=== PATIENT | female | born 1960 | race Caucasian/White ===

== ENCOUNTER 2017-11-07 07:27 | Emergency (ER) | payer OTHER, SELFPAY ==
[2017-11-07 07:41] VITALS: BP 150/94; PULSE 86; RESP 18; TEMP 36.7; O2SAT 95
--- NOTE | 2017-11-07 08:41 | ED.HA ---
HPI - Headache General Chief Complaint: Headache Stated Complaint: PT STATES PERSISTANT SINUS INFECTION Time Seen by Provider: 11/07/17 07:33 History of Present Illness HPI Narrative: HPI 56-year-old female with history of of a deviated septum repair, and other unknown sinus surgery (both >= 10 years ago) presents for evaluation of 3 months of recurrent sinus congestion. Patient reports that she has had intermittent congestion for 3 months, is taking daily Afrin with transient relief followed by recurrent congestion. Patient reports that her symptoms are exacerbated over the last 7 days and our company by postnasal drip without changes in vision, hearing, headache, or ear pain. Patient denies fevers. M/S/F/SocHx notable for: strabismus; remainder reviewed with patient and in chart. ROS: Negative constitutional, eye, cardiovascular, pulmonary, GI, , MSK, skin, neurologic, psychiatric, endocrine unless noted in the HPI. Exam Gen: Pleasant, non-toxic appearing, resting comfortably. Patient with nasally sounding phonation. HEENT: NC, AT, PEERL, EOMI. Mild maxillary sinus tenderness palpation, oropharynx visually normal with the exception of scant clear postnasal drip. Neck supple the full ROM, TMs clear bilaterally. Resp: Clear to auscultation bilaterally, normal work of breathing, no accessory muscle usage. Card: Regular rate and rhythm with no murmurs, rubs, or gallops, extremities warm and well perfused. GI: Non-tender to palpation throughout all quadrants, no focal tenderness at McBurney's point, negative Willard's sign, non-distended, no rebound or guarding. : No suprapubic tenderness to palpation. MSK: No visible deformities, strength and tone without visually appreciable deficit. Skin: Normal color with no visible lesions. Neuro: AO x 3, no facial asymmetry, vision and hearing WNL. Psych: Mood and affect appropriate. MDM Previous chart, nursing note, labs, imaging, and vitals reviewed. A: 56 y/o female presents for evaluation of 3 months of intermittent sinus congestion, uses daily afrin with transient improvement. DDx & Evaluation: patient with clinical features of sinus congestion, basement history, exam, and vitals strongly suspect a viral process. Patient almost certainly has an overlapping rhinitis medicamentosa due to her chronic Afrin use. No evidence of acute otitis media. Findings on history or exam suggestive of cavernous sinus thrombosis, abscess, or other complications. Patient given return to care precautions, instructed to discontinue her Afrin, prescribed fluticasone, instructed to keep her already scheduled ENT follow-up. Impression: sinus congestion, rhinitis medicamentosa (please reference below for remainder of encounter information) Related Data Home Medications Medication Instructions Recorded Confirmed amlodipine [Norvasc] 5 mg PO QDAY #0 07/30/17 11/07/17 escitalopram oxalate [Lexapro] 10 mg PO DAILY 11/07/17 11/07/17 Allergies Allergy/AdvReac Type Severity Reaction Status Date / Time No Known Drug Allergies Allergy Verified 11/07/17 08:09 [facility] Medical History Fibromyalgia (Acute) Surgical History S/P sinus surgery (Acute) Social History Smoking Status: Former smoker
[2017-11-07 09:13] VITALS: BP 179/100; PULSE 61; RESP 22; O2SAT 96
== END 2017-11-07 08:55 | disposition home or self-care (01) ==
PROVIDERS: Emergency Provider Emergency Medicine; Family Provider Family Medicine; PCP Family Medicine
DX: R09.81 Nasal congestion (principal); J31.0 Chronic rhinitis; T48.5X1A Poisoning by other anti-common-cold drugs, accidental (unintentional), initial encounter
CPT/HCPCS: 99282

== ENCOUNTER 2017-11-16 08:28 | Emergency (ER) | payer OTHER, SELFPAY ==
--- NOTE | 2017-11-16 08:35 | ED.URI ---
HPI - URI/Sore Throat General Chief Complaint: Upper Respiratory Symptoms Stated Complaint: SINUS INFECTION Time Seen by Provider: 11/16/17 08:33 Source: patient Mode of arrival: ambulatory Limitations: no limitations History of Present Illness HPI Narrative: 56-year-old female with a history of recurrent sinus infections status post 2 sinus surgeries presents with 2 months of left-sided maxillary sinus pain/pressure and nasal drainage. She has not had fevers but continues to have symptoms despite 2 doses of antibiotics, Augmentin and clindamycin respectively 2 and 1 month ago with prednisone. She states the prednisone is the only thing that seems to make a difference. She has an upcoming appointment with ENT in 5 days. She has had difficulty finding relief from the pain and it is keeping her up at night. Related Data Home Medications Medication Instructions Recorded Confirmed amlodipine [Norvasc] 5 mg PO QDAY #0 07/30/17 11/07/17 escitalopram oxalate [Lexapro] 10 mg PO DAILY 11/07/17 11/07/17 Previous Rx's Medication Instructions Recorded fluticasone 2 spray NASAL DAILY #15.8 gram 11/07/17 hydrocodone-acetaminophen [Troy] 1 tab PO Q4H #10 tab 11/16/17 levofloxacin [Levaquin] 750 mg PO Q24H 5 Days #5 tab 11/16/17 prednisone 40 mg PO DAILY #10 tab 11/16/17 Allergies Allergy/AdvReac Type Severity Reaction Status Date / Time No Known Drug Allergies Allergy Verified 11/07/17 08:09 Review of Systems Review of Systems All systems reviewed & are unremarkable except as noted in HPI and below Constitutional Denies chills, Denies fever(s), Denies lethargy and Denies weakness Eyes Denies change in vision, Denies eye discharge, Denies irritation and Denies loss of vision ENT Ears, Nose, Mouth, and Throat: Denies change in voice, Reports nasal congestion, Reports nasal discharge, Denies neck pain, Denies post nasal drip, Reports sinus pain, Reports sinus pressure, Denies sore throat and Denies throat swelling Cardiovascular Denies chest pain, Denies irregular heart rhythm, Denies lightheadedness, Denies palpitations, Denies dyspnea, Denies dyspnea on exertion and Denies orthopnea Respiratory Denies cough, Denies dyspnea, Denies dyspnea on exertion and Denies wheezing Gastrointestinal Gastrointestinal: Denies abdominal pain, Denies change in bowel habits, Denies diarrhea, Denies nausea and Denies vomiting Genitourinary Denies hematuria, Denies flank pain, Denies urinary incontinence and Denies urinary urgency Musculoskeletal Denies neck pain Integumentary/Breasts Denies pruritus, Denies erythema, Denies rash and Denies wounds Neurologic Denies confusion, Denies loss of vision and Denies weakness Psychiatric Denies anxiety, Denies confusion, Denies depression, Denies homicidal ideation and Denies suicidal ideation Endocrine Denies palpitations Hematologic/Lymphatic Denies easy bruising Allergic/Immunologic Denies throat swelling and Denies wheezing PFSH Medical History Fibromyalgia (Acute) Surgical History S/P sinus surgery (Acute) Social History Smoking Status: Former smoker Exam Initial Vital Signs Initial Vital Signs: Vital Signs Temperature 98.2 F 11/16/17 08:41 Pulse Rate 96 H 11/16/17 08:41 Respiratory Rate 18 11/16/17 08:41 Blood Pressure 154/99 H 11/16/17 08:41 Pulse Oximetry 100 11/16/17 08:41 Const General: cooperative and well developed Nutritional Appearance: well nourished Orientation: alert, awake, oriented x3 and not confused HENCO Head: normocephalic and atraumatic Ears: external ears normal and TM's normal bilaterally Nose: external nose normal, nasal discharge, No nasal polyp, septum abnormal (Deviates to the left side) and other (Drainage from left sinus present. Tenderness over the maxillary sinus.) Face and sinus: sinuses tender, face symmetric, sinus tenderness and No dry mucous membranes Mouth: oral mucosae normal and moist mucous membranes Teeth and gingiva: dentition normal Throat: tonsils normal and uvula midline Eyes General: appearance normal, both eyes and all related structures Eyelids: eyelids normal Conjunctivae: conjunctivae normal Sclera: sclerae normal Pupils: PERRL EOM: EOM intact bilaterally Neck Neck: normal visual inspection, trachea midline, No lymphadenopathy, No midline deformity and No JVD Lymphatic: No lymphedema Chest Chest: normal inspection of the chest Resp Effort & Inspection: normal respiratory effort, able to speak in complete sentences, no respiratory distress and no use of accessory muscles Auscultation: clear to auscultation bilaterally, no rales, no rhonchi and no wheezes Cardio Rate: regular rate Rhythm: regular rhythm Heart Sounds: no click, no gallops, no murmurs and no rubs Pulses: normal peripheral pulses GI Inspection: non-distended Palpation: soft, no hepatosplenomegaly, No guarding, No pulsatile mass and No tender Auscultation: normal bowel sounds Back/Spine/Pelvis Back: No CVA tenderness Cervical Spine: cervical ROM normal and No pain with cervical ROM Thoracic/Lumbar Spine: thoracic and lumbar spine normal to inspection Skin General: no rashes or lesions noted, No jaundice and No petechiae Neuro General: alert, oriented x3, gait normal and no focal motor deficits Cranial Nerves: CN's II-XI intact bilaterally Speech: speech normal Motor: strength 5/5 throughout Sensory Exam: no sensory deficits noted Extrem General: full ROM, no clubbing, cyanosis or edema, no pedal edema and no calf tenderness Psych Appearance: well kempt Mental Status: mental status grossly normal Attitude: cooperative Thought Content: normal and suicidality Judgment: judgment good Course Vital Signs - 8 hr 11/16/17 08:41 Temperature 98.2 F Pulse Rate 96 H Respiratory Rate 18 Blood Pressure 154/99 H Pulse Oximetry 100 MDM - URI/Sore Throat Differential Diagnosis Differential diagnosis: Likely upper respiratory infection, otitis media, sinusitis and viral infection Medical Records Attestation: I reviewed the patient's medical records. [facility] Narrative Medical decision making narrative: Will give Levaquin, prednisone, and hydrocodone to help for pain. She states tramadol is not helpful to her. She has follow-up with ENT in 5 days Discharge Plan Departure Patient Disposition: Home, Self-Care Clinical Impression: Sinusitis, Acute facial pain Instructions: DI for Sinusitis Activity Restrictions/Additional Instructions: Thank you for testing as with your care today. Take the steroids, antibiotics, and pain medications as prescribed. Return to the ER for new or worsening symptoms. Follow up with your ENT provider on Sunday as scheduled. Prescriptions: New hydrocodone-acetaminophen [Troy] 5-325 mg tablet 1 tab PO Q4H Qty: 10 RF: 0 prednisone 20 mg tablet 40 mg PO DAILY Qty: 10 RF: 0 levofloxacin [Levaquin] 750 mg tablet 750 mg PO Q24H 5 Days Qty: 5 RF: 0 No Action amlodipine [Norvasc] 5 MG tablet 5 mg PO QDAY Qty: 0 RF: 0 escitalopram oxalate [Lexapro] 10 mg Tablet 10 mg PO DAILY RF: 0 fluticasone 50 mcg/actuation spray,suspension 2 spray NASAL DAILY Qty: 15.8 RF: 0
[2017-11-16 08:41] VITALS: BP 154/99; PULSE 96; RESP 18; TEMP 36.8; O2SAT 100
--- NOTE | 2017-11-16 09:10 | ED_ITS ---
HPI - URI/Sore Throat General Chief Complaint: Upper Respiratory Symptoms Stated Complaint: SINUS INFECTION Time Seen by Provider: 11/16/17 08:33 Source: patient Mode of arrival: ambulatory Limitations: no limitations History of Present Illness HPI Narrative: 56-year-old female with a history of recurrent sinus infections status post 2 sinus surgeries presents with 2 months of left-sided maxillary sinus pain/pressure and nasal drainage. She has not had fevers but continues to have symptoms despite 2 doses of antibiotics, Augmentin and clindamycin respectively 2 and 1 month ago with prednisone. She states the prednisone is the only thing that seems to make a difference. She has an upcoming appointment with ENT in 5 days. She has had difficulty finding relief from the pain and it is keeping her up at night. Related Data Home Medications Medication Instructions Recorded Confirmed amlodipine [Norvasc] 5 mg PO QDAY #0 07/30/17 11/07/17 escitalopram oxalate [Lexapro] 10 mg PO DAILY 11/07/17 11/07/17 Previous Rx's Medication Instructions Recorded fluticasone 2 spray NASAL DAILY #15.8 gram 11/07/17 hydrocodone-acetaminophen [Loco] 1 tab PO Q4H #10 tab 11/16/17 levofloxacin [Levaquin] 750 mg PO Q24H 5 Days #5 tab 11/16/17 prednisone 40 mg PO DAILY #10 tab 11/16/17 Allergies Allergy/AdvReac Type Severity Reaction Status Date / Time No Known Drug Allergies Allergy Verified 11/07/17 08:09 Review of Systems Review of Systems All systems reviewed & are unremarkable except as noted in HPI and below Constitutional Denies chills, Denies fever(s), Denies lethargy and Denies weakness Eyes Denies change in vision, Denies eye discharge, Denies irritation and Denies loss of vision ENT Ears, Nose, Mouth, and Throat: Denies change in voice, Reports nasal congestion , Reports nasal discharge, Denies neck pain, Denies post nasal drip, Reports sinus pain, Reports sinus pressure, Denies sore throat and Denies throat swelling Cardiovascular Denies chest pain, Denies irregular heart rhythm, Denies lightheadedness, Denies palpitations, Denies dyspnea, Denies dyspnea on exertion and Denies orthopnea Respiratory Denies cough, Denies dyspnea, Denies dyspnea on exertion and Denies wheezing Gastrointestinal Gastrointestinal: Denies abdominal pain, Denies change in bowel habits, Denies diarrhea, Denies nausea and Denies vomiting Genitourinary Denies hematuria, Denies flank pain, Denies urinary incontinence and Denies urinary urgency Musculoskeletal Denies neck pain Integumentary/Breasts Denies pruritus, Denies erythema, Denies rash and Denies wounds Neurologic Denies confusion, Denies loss of vision and Denies weakness Psychiatric Denies anxiety, Denies confusion, Denies depression, Denies homicidal ideation and Denies suicidal ideation Endocrine Denies palpitations Hematologic/Lymphatic Denies easy bruising Allergic/Immunologic Denies throat swelling and Denies wheezing PFSH Medical History Fibromyalgia (Acute) Surgical History S/P sinus surgery (Acute) Social History Smoking Status: Former smoker Exam Initial Vital Signs Initial Vital Signs: Vital Signs Temperature 98.2 F 11/16/17 08:41 Pulse Rate 96 H 11/16/17 08:41 Respiratory Rate 18 11/16/17 08:41 Blood Pressure 154/99 H 11/16/17 08:41 Pulse Oximetry 100 11/16/17 08:41 Const General: cooperative and well developed Nutritional Appearance: well nourished Orientation: alert, awake, oriented x3 and not confused HENNY Head: normocephalic and atraumatic Ears: external ears normal and TM's normal bilaterally Nose: external nose normal, nasal discharge, No nasal polyp, septum abnormal ( Deviates to the left side) and other (Drainage from left sinus present. Tenderness over the maxillary sinus.) Face and sinus: sinuses tender, face symmetric, sinus tenderness and No dry mucous membranes Mouth: oral mucosae normal and moist mucous membranes Teeth and gingiva: dentition normal Throat: tonsils normal and uvula midline Eyes General: appearance normal, both eyes and all related structures Eyelids: eyelids normal Conjunctivae: conjunctivae normal Sclera: sclerae normal Pupils: PERRL EOM: EOM intact bilaterally Neck Neck: normal visual inspection, trachea midline, No lymphadenopathy, No midline deformity and No JVD Lymphatic: No lymphedema Chest Chest: normal inspection of the chest Resp Effort & Inspection: normal respiratory effort, able to speak in complete sentences, no respiratory distress and no use of accessory muscles Auscultation: clear to auscultation bilaterally, no rales, no rhonchi and no wheezes Cardio Rate: regular rate Rhythm: regular rhythm Heart Sounds: no click, no gallops, no murmurs and no rubs Pulses: normal peripheral pulses GI Inspection: non-distended Palpation: soft, no hepatosplenomegaly, No guarding, No pulsatile mass and No tender Auscultation: normal bowel sounds Back/Spine/Pelvis Back: No CVA tenderness Cervical Spine: cervical ROM normal and No pain with cervical ROM Thoracic/Lumbar Spine: thoracic and lumbar spine normal to inspection Skin General: no rashes or lesions noted, No jaundice and No petechiae Neuro General: alert, oriented x3, gait normal and no focal motor deficits Cranial Nerves: CN's II-XI intact bilaterally Speech: speech normal Motor: strength 5/5 throughout Sensory Exam: no sensory deficits noted Extrem General: full ROM, no clubbing, cyanosis or edema, no pedal edema and no calf tenderness Psych Appearance: well kempt Mental Status: mental status grossly normal Attitude: cooperative Thought Content: normal and suicidality Judgment: judgment good Course Vital Signs - 8 hr 11/16/17 08:41 Temperature 98.2 F Pulse Rate 96 H Respiratory Rate 18 Blood Pressure 154/99 H Pulse Oximetry 100 MDM - URI/Sore Throat Differential Diagnosis Differential diagnosis: Likely upper respiratory infection, otitis media, sinusitis and viral infection Medical Records Attestation: I reviewed the patient's medical records. [facility] Narrative Medical decision making narrative: Will give Levaquin, prednisone, and hydrocodone to help for pain. She states tramadol is not helpful to her. She has follow-up with ENT in 5 days Discharge Plan Departure Patient Disposition: Home, Self-Care Clinical Impression: Sinusitis, Acute facial pain Instructions: DI for Sinusitis Activity Restrictions/Additional Instructions: Thank you for testing as with your care today. Take the steroids, antibiotics, and pain medications as prescribed. Return to the ER for new or worsening symptoms. Follow up with your ENT provider on Sunday as scheduled. Prescriptions: New hydrocodone-acetaminophen [Loco] 5-325 mg tablet 1 tab PO Q4H Qty: 10 RF: 0 prednisone 20 mg tablet 40 mg PO DAILY Qty: 10 RF: 0 levofloxacin [Levaquin] 750 mg tablet 750 mg PO Q24H 5 Days Qty: 5 RF: 0 No Action amlodipine [Norvasc] 5 MG tablet 5 mg PO QDAY Qty: 0 RF: 0 escitalopram oxalate [Lexapro] 10 mg Tablet 10 mg PO DAILY RF: 0 fluticasone 50 mcg/actuation spray,suspension 2 spray NASAL DAILY Qty: 15.8 RF: 0
== END 2017-11-16 09:25 | disposition home or self-care (01) ==
PROVIDERS: Emergency Provider Emergency Medicine; PCP Family Medicine
DX: J01.90 Acute sinusitis, unspecified (principal)
CPT/HCPCS: 99282

== ENCOUNTER 2018-03-22 13:12 | Emergency (ER) | payer OTHER, SELFPAY ==
[2018-03-22 13:18] VITALS: BP 147/86; PULSE 89; RESP 20; TEMP 36.5; O2SAT 99
--- NOTE | 2018-03-22 13:24 | ED.BACK ---
HPI - Back Pain/Injury <YASSINE Espinosa - Last Filed: 03/22/18 22:27> General Chief Complaint: Back Pain/Injury Stated Complaint: LOWER BACK PAIN/SPASMS Time Seen by Provider: 03/22/18 13:24 Source: patient Mode of arrival: ambulatory Limitations: no limitations History of Present Illness HPI Narrative: 57-year-old female with history of chronic lower back pain and former smoker here for complaint of having lower back pain mostly on the left side over the past couple of weeks. She was seen at [facility] and was prescribed [place]. she reports that the pain has not resolved. She is unable to get into her primary care provider. She denies any trauma to the lower back. She reports increased pain with movement. She reports that she feels like there is a spasm in her lower back with pain radiating into her left buttocks. She denies any loss of bladder or bowel control. She is ambulatory into the emergency room. Related Data Home Medications Medication Instructions Recorded Confirmed amlodipine [Norvasc] 5 mg PO QDAY #0 07/30/17 03/22/18 escitalopram oxalate [Lexapro] 10 mg PO DAILY 11/07/17 03/22/18 Previous Rx's Medication Instructions Recorded fluticasone 2 spray NASAL DAILY #15.8 gram 11/07/17 cyclobenzaprine 10 mg PO TID PRN #15 tab 03/22/18 hydrocodone-acetaminophen [[place]] 1 tab PO Q4-6H PRN #10 tab 03/22/18 prednisone 40 mg PO DAILY #8 tab 03/22/18 Allergies Allergy/AdvReac Type Severity Reaction Status Date / Time No Known Drug Allergies Allergy Verified 11/07/17 08:09 Review of Systems <YASSINE Espinosa - Last Filed: 03/22/18 22:27> Constitutional Denies chills, Denies fever(s), Denies lethargy and Denies weakness Eyes Denies change in vision, Denies eye discharge, Denies irritation and Denies loss of vision ENT Ears, Nose, Mouth, and Throat: Denies change in voice, Denies neck pain and Denies sore throat Cardiovascular Denies chest pain, Denies irregular heart rhythm, Denies lightheadedness, Denies palpitations, Denies dyspnea, Denies dyspnea on exertion and Denies orthopnea Respiratory Denies cough, Denies dyspnea, Denies dyspnea on exertion and Denies wheezing Gastrointestinal Gastrointestinal: Denies abdominal pain, Denies change in bowel habits, Denies diarrhea, Denies nausea and Denies vomiting Genitourinary Denies hematuria, Denies flank pain, Denies urinary incontinence and Denies urinary urgency Musculoskeletal Denies neck pain Comments: Lower back pain Integumentary/Breasts Denies pruritus, Denies erythema, Denies rash and Denies wounds Neurologic Denies confusion, Denies loss of vision and Denies weakness Psychiatric Denies anxiety, Denies confusion, Denies depression, Denies homicidal ideation and Denies suicidal ideation Endocrine Denies palpitations Hematologic/Lymphatic Denies easy bruising Allergic/Immunologic Denies wheezing Exam <YASSINE Espinosa - Last Filed: 03/22/18 22:27> Initial Vital Signs Initial Vital Signs: Vital Signs Temperature 97.7 F 03/22/18 13:18 Pulse Rate 89 03/22/18 13:18 Respiratory Rate 20 03/22/18 13:18 Blood Pressure 147/86 H 03/22/18 13:18 Pulse Oximetry 99 03/22/18 13:18 Const General: cooperative and well developed Nutritional Appearance: well nourished Orientation: alert, awake, oriented x3 and not confused HENMT Mouth: oral mucosae normal and oropharynx normal Eyes Conjunctivae: conjunctivae normal Sclera: sclerae normal Pupils: PERRL EOM: EOM intact bilaterally Resp Effort & Inspection: normal respiratory effort, able to speak in complete sentences, no respiratory distress and no use of accessory muscles Auscultation: clear to auscultation bilaterally, no rales, no rhonchi and no wheezes Cardio Rate: regular rate Rhythm: regular rhythm and other Heart Sounds: no click, no gallops, no murmurs and no rubs Pulses: normal peripheral pulses Other: occasional missed beat is heard on auscultation. Back/Spine/Pelvis Other: TTP to left lumbar paraspinals with muscle spasm. No midline tenderness. Right paraspinals are nontender. Tenderness to palpation radiates down into the left buttocks area. distal sensation is intact. Distal pulses are intact. Full range of motion to lower extremities. Skin General: no rashes or lesions noted, No jaundice and No petechiae Neuro General: alert, oriented x3, gait normal and no focal motor deficits Speech: speech normal <Gilbert Rae DO - Last Filed: 03/23/18 07:17> Initial Vital Signs Initial Vital Signs: Vital Signs Temperature 97.7 F 03/22/18 13:18 Pulse Rate 89 03/22/18 13:18 Respiratory Rate 20 03/22/18 13:18 Blood Pressure 147/86 H 03/22/18 13:18 Pulse Oximetry 99 03/22/18 13:18 Course <YASSINE Espinosa - Last Filed: 03/22/18 22:27> Orders Ordered: ED Orders 03/22/18 13:40 EKG-12 Lead Stat Vital Signs - 8 hr 03/22/18 14:52 Pulse Rate 92 H Respiratory Rate 18 Blood Pressure 133/86 Pulse Oximetry 96 <Gilbert Rae DO - Last Filed: 03/23/18 07:17> Orders Ordered: ED Orders 03/22/18 13:40 EKG-12 Lead Stat Vital Signs - 8 hr 03/22/18 14:52 Pulse Rate 92 H Respiratory Rate 18 Blood Pressure 133/86 Pulse Oximetry 96 MDM - Back Pain/Injury <YASSINE Espinosa - Last Filed: 03/22/18 22:27> ECG Data Interpretation: EKG shows normal sinus rhythm with no ST elevation or depression. No ectopy. Ventricular rate of 92. Pr interval of 148. QRS duration of 83. QT of 352. MDM Narrative Medical decision making narrative: on exam heart auscultation demonstrates occasional missed beat. EKG shows sinus rhythm no ectopy was seen. No ST elevation or depression. Tracing was obtained to capture missed beat and shows PACs occasionally. Lower back pain and presents as acute exacerbation of chronic lower back pain with muscle spasm. She is prescribed cyclobenzaprine to help with muscle spasm. She is also prescribed a short course of prednisone to help with anti-inflammatory effects due to the sciatica. she is instructed to follow up with primary care provider next week for re-evaluation And discussion on long-term care if pain does not resolve such as physical therapy/MRI. she requested pain medication as well she is given a small amount of [place]. Patient agreed not to take in conjunction with the cyclobenzaprine. for any worsening symptoms return to the emergency room. Discharge Plan Departure Patient Disposition: Home Clinical Impression: Low back strain Discharge Date/Time: 03/22/18 14:54 Interventions: ED Discharge Assessment Last Done: 03/22/18 14:52 Instructions: DI for Low Back Pain Activity Restrictions/Additional Instructions: signs and symptoms presents as acute exacerbation of chronic back pain with muscle spasm and sciatica. You are prescribed a muscle relaxer called cyclobenzaprine use as directed. No driving while on the muscle relaxer. You also prescribed short course of prednisone to help with anti-inflammatory effects with a sciatica Also use as directed. Small amount of [place] is prescribed for breakthrough pain use as directed no driving while on the [place] as well. Do not take in conjunction with the cyclobenzaprin. follow up with her primary care provider for further evaluation of the lower back pain if pain does not resolve to long-term physical therapy and or MRI may be beneficial. EKG /tracing today showed premature atrial contractions. Follow up with her primary care provider for further evaluation. For any worsening symptoms return emergency room. Prescriptions: New cyclobenzaprine 10 mg tablet 10 mg PO TID PRN (Reason: muscle spasm) Qty: 15 RF: 0 hydrocodone-acetaminophen [[place]] 5-325 mg tablet 1 tab PO Q4-6H PRN (Reason: pain) Qty: 10 RF: 0 prednisone 20 mg tablet 40 mg PO DAILY Qty: 8 RF: 0 No Action amlodipine [Norvasc] 5 MG tablet 5 mg PO QDAY Qty: 0 RF: 0 escitalopram oxalate [Lexapro] 10 mg Tablet 10 mg PO DAILY RF: 0 fluticasone 50 mcg/actuation spray,suspension 2 spray NASAL DAILY Qty: 15.8 RF: 0 Referrals: Leland Zamora MD [Primary Care Provider] - <Gilbert Rae DO - Last Filed: 03/23/18 07:17> [facility] ED Attending Ángelature Attestation: I was immediately available in the department for consultation. Documentation has been reviewed. I agree with assessment and plan.
[2018-03-22 14:52] VITALS: BP 133/86; PULSE 92; RESP 18; O2SAT 96
== END 2018-03-22 14:54 | disposition home or self-care (01) ==
PROVIDERS: Emergency Provider Nurse Practitioner Family; PCP Family Medicine
DX: S39.012A Strain of muscle, fascia and tendon of lower back, initial encounter (principal)
CPT/HCPCS: 93005; 99282; 99283

== ENCOUNTER 2018-04-19 09:03 | Emergency (ER) | payer OTHER, SELFPAY ==
--- NOTE | 2018-04-19 09:12 | ED_ITS ---
HPI - General Adult General Chief complaint: Back Pain/Injury Stated complaint: severe pain in neck,back,tingling in right fingers Time Seen by Provider: 04/19/18 09:12 Source: patient Mode of arrival: ambulatory Limitations: no limitations History of Present Illness HPI narrative: 57-year-old female here for evaluation of mid upper back pain and also tingling in the middle and ring finger of her right hand. Patient states this has just started over the past couple days. She states that she has had cervical pain for many years now. She also has lumbar pain but no lumbar radiculopathy. She is scheduled to see her primary doctor but this is not for couple weeks. She is taking anti-inflammatories at home but she was concerned about the tingling in her fingers. Related Data Home Medications Medication Instructions Recorded Confirmed amlodipine [Norvasc] 5 mg PO QDAY #0 07/30/17 03/22/18 escitalopram oxalate [Lexapro] 10 mg PO DAILY 11/07/17 03/22/18 Previous Rx's Medication Instructions Recorded fluticasone 2 spray NASAL DAILY #15.8 gram 11/07/17 cyclobenzaprine 10 mg PO TID PRN #15 tab 03/22/18 hydrocodone-acetaminophen [[place]] 1 tab PO Q4-6H PRN #10 tab 03/22/18 prednisone 40 mg PO DAILY #8 tab 03/22/18 cyclobenzaprine 10 mg PO TID PRN #12 tab 04/19/18 hydrocodone-acetaminophen [[place]] 1 tab PO Q4-6H PRN #7 tab 04/19/18 meloxicam [Mobic] 15 mg PO DAILY #30 tab 04/19/18 Allergies Allergy/AdvReac Type Severity Reaction Status Date / Time No Known Drug Allergies Allergy Verified 11/07/17 08:09 Review of Systems Constitutional Denies fatigue, Denies fever(s) and Denies headache(s) ENT Ears, Nose, Mouth, and Throat: Denies headache(s) Cardiovascular Denies chest pain and Denies dyspnea Respiratory Denies dyspnea Gastrointestinal Gastrointestinal: Denies abdominal pain, Denies nausea and Denies vomiting Musculoskeletal Reports back pain, Denies myalgias, Denies arthralgias, Denies radiating pain into limb and Reports tingling (Tips of her right ring and middle finger) Integumentary/Breasts Denies lesions and Denies rash Neurologic Denies headache(s) and Reports tingling (Tips of her right ring and middle finger) Endocrine Denies fatigue Hematologic/Lymphatic Denies easy bleeding and Denies easy bruising [facility] Medical History Hypertension (Acute) Fibromyalgia (Acute) Surgical History S/P sinus surgery (Acute) Social History Smoking Status: Former smoker Exam Initial Vital Signs Initial Vital Signs: Vital Signs Temperature 97.7 F 04/19/18 09:16 Pulse Rate 111 H 04/19/18 09:16 Respiratory Rate 22 04/19/18 09:16 Blood Pressure 157/100 H 04/19/18 09:16 Pulse Oximetry 97 04/19/18 09:16 Const General: cooperative, healthy appearing, comfortable, well developed, well groomed and No acute distress Orientation: alert, awake and oriented x3 HENMT Head: normal to inspection and normocephalic Resp Effort & Inspection: normal respiratory effort Auscultation: clear to auscultation bilaterally Cardio Rate: tachycardic Rhythm: regular rhythm Pulses: radial pulses present Back/Spine/Pelvis Back: No CVA tenderness Other: Patient with a fullness to the right side of her lower cervical region. She states this fullness has been there for many years but has not gotten any larger. It is soft. No defined edges. Feel somewhat like a lipoma however not defined. It is tender to palpation and does seem to reproduce the symptoms radiating down her right arm. No tenderness to palpation or fullness noted in the lumbar spine. Skin Lesions: no lesions Rashes: no rashes Neuro General: alert, awake and oriented x3 Sensory Exam: other (Subjective tingling to the tips of her right ring and middle finger otherwise no other sensory deficits noted or described by patient) Extrem General: normal to inspection and capillary refill normal Psych Appearance: grossly normal and well kempt Course Vital Signs - 8 hr 04/19/18 09:16 Temperature 97.7 F Pulse Rate 111 H Respiratory Rate 22 Blood Pressure 157/100 H Pulse Oximetry 97 Medical Decision Making MDM Narrative Medical decision making narrative: Patient has no red flag symptoms today concerning for cauda equina or fracture or metastasis. She does have a fullness in the right side of her lower cervical spine which could be a lipoma since it has been there for such a long time however it does not have the definitive edges that I would expect of this type of diagnosis. Could also be a muscle spasm cousin does seem to reproduce the symptoms in her right arm and is tender to palpation. I discussed all this with the patient. I do agree that the patient needs an MRI however I do not feel this needs to be done on an emergent basis. I did discuss this with her and she expressed understanding. She does have a follow-up with her primary doctor. She has occasionally been taking Motrin. I will give her prescription for Mobic. We did discuss muscle relaxers. I informed her that if this does not seem to improve her symptoms that she should stop taking them. Also sent home with a very short course of pain medication. I informed her that this is for extreme pain and should only be for a very short amount of time. She expressed understanding and agreement with this. She was given return precautions. Discharge Plan Departure Patient Disposition: Home Clinical Impression: Cervical radiculopathy, Lower back pain Instructions: DI for Low Back Pain, Activity May Be Better then Rest for Low Back Pain Recovery, Exercise May Reduce Risk of Low Back Pain Activity Restrictions/Additional Instructions: I recommend that you keep your appointment with your primary doctor to discuss the indications for an MRI. Take the medications like we discussed. Return to the emergency department for any new or worsening symptoms Prescriptions: New cyclobenzaprine 10 mg tablet 10 mg PO TID PRN (Reason: muscle spasm) Qty: 12 RF: 0 hydrocodone-acetaminophen [[place]] 5-325 mg tablet 1 tab PO Q4-6H PRN (Reason: pain) Qty: 7 RF: 0 meloxicam [Mobic] 15 mg tablet 15 mg PO DAILY Qty: 30 RF: 0 No Action amlodipine [Norvasc] 5 MG tablet 5 mg PO QDAY Qty: 0 RF: 0 cyclobenzaprine 10 mg tablet 10 mg PO TID PRN (Reason: muscle spasm) Qty: 15 RF: 0 hydrocodone-acetaminophen [[place]] 5-325 mg tablet 1 tab PO Q4-6H PRN (Reason: pain) Qty: 10 RF: 0 prednisone 20 mg tablet 40 mg PO DAILY Qty: 8 RF: 0 escitalopram oxalate [Lexapro] 10 mg Tablet 10 mg PO DAILY RF: 0 fluticasone 50 mcg/actuation spray,suspension 2 spray NASAL DAILY Qty: 15.8 RF: 0
[2018-04-19 09:16] VITALS: BP 157/100; PULSE 111; RESP 22; TEMP 36.5; O2SAT 97
== END 2018-04-19 09:45 | disposition home or self-care (01) ==
PROVIDERS: Emergency Provider Emergency Medicine; PCP Family Medicine
DX: M54.12 Radiculopathy, cervical region (principal); M54.5 Low back pain
CPT/HCPCS: 99282

== ENCOUNTER 2018-05-27 16:19 | Emergency (ER) | payer OTHER, SELFPAY ==
[2018-05-27 16:34] VITALS: BP 145/87; PULSE 104; RESP 22; TEMP 37.4; O2SAT 100; BMI 60.3
--- NOTE | 2018-05-27 19:55 | ED.BACK ---
HPI - Back Pain/Injury <Milagros Romero PA-C - Last Filed: 05/27/18 22:58> General Chief Complaint: Back Pain/Injury Stated Complaint: LOWER BACK PAIN Time Seen by Provider: 05/27/18 19:55 Source: patient Mode of arrival: ambulatory Limitations: no limitations History of Present Illness HPI Narrative: This 57-year-old female comes in due to worsening low back pain. She states that she has had lumbar back pain and spasms for 6 weeks, just got approved for MRI and is working on getting that scheduled. She states that she has taken Mobic, along with Percocet and Robaxin off and on at home for these (none today), which has been helpful. She states that she was sitting with a heating pad on her chair today when she suddenly got severe right-sided pain that felt like spasm and brought her to her knees when she tried to get up. She states at times it feels like this pain can radiate around her side, but feels like it starts in the back. She states that most of her spasms have been on the left side, so this is atypical. She states that she has not had any new falls or injury. She states that pain radiates into the hip and gluteal area little bit but not down the leg. She denies any weakness or paresthesia in her legs. She has been urinating normally. She has had some intermittent diarrhea since the onset of her symptoms, a few episodes today, but denies any new changes. She states that pain is worse with walking and moving her trunk, better lying on her side and at rest. She has some nausea when she has increased pain. She has not had any vomiting this evening, no fevers at home. She denies any new hematuria, dysuria, or other new complaints on systems review such as recent illness, chest pain or dyspnea Related Data Home Medications Medication Instructions Recorded Confirmed amlodipine [Norvasc] 5 mg PO DAILY #0 07/30/17 05/27/18 escitalopram oxalate [Lexapro] 10 mg PO DAILY 11/07/17 05/27/18 loratadine 10 mg PO DAILY 05/27/18 05/27/18 methocarbamol 750 mg PO Q4H PRN 05/27/18 05/27/18 montelukast 10 mg PO DAILY 05/27/18 05/27/18 oxycodone-acetaminophen 1 tab PO Q4H PRN 05/27/18 05/27/18 Previous Rx's Medication Instructions Recorded fluticasone 2 spray NASAL DAILY #15.8 gram 11/07/17 cyclobenzaprine 10 mg PO TID PRN #15 tab 03/22/18 hydrocodone-acetaminophen [[place]] 1 tab PO Q4-6H PRN #10 tab 03/22/18 meloxicam [Mobic] 15 mg PO DAILY #30 tab 04/19/18 methocarbamol [Robaxin] 500 mg PO QID #10 tab 05/27/18 sulfamethoxazole-trimethoprim 1 tab PO BID #8 tab 05/27/18 [Bactrim DS] Allergies Allergy/AdvReac Type Severity Reaction Status Date / Time No Known Drug Allergies Allergy Verified 05/27/18 16:38 Review of Systems <Milagros Romero PA-C - Last Filed: 05/27/18 22:58> Review of Systems All systems reviewed & are unremarkable except as noted in HPI and below Exam <Milagros Romero PA-C - Last Filed: 05/27/18 22:58> Narrative Exam Narrative: GENERAL APPEARANCE: Patient lying on her side, appears uncomfortable but in NAD PULMONARY: Lungs clear to auscultation bilaterally CV: Regular rhythm regular without murmur, normal S1 and S2, no S3 or S4 ABDOMEN: Soft, nondistended, +bowel sounds x4 quadrants. Mild tenderness over the right inferior lateral flank and right lateral suprapubic area without guarding or rebound, no tenderness elsewhere over the abdomen MUSCULOSKELETAL: No point tenderness over the lumbar spine. Tender over the right lumbar paraspinal musculature lateral to the midclavicular line throughout. No tenderness over the right SI joint or hips. Limited range of motion of the trunk secondary to tenderness. Lower extremity strength 5/5 bilateral hip flexors, knee extensors, foot plantar flexion. Negative modified straight leg raise. She ambulates bearing full weight but with the spine flexed and a shortened gait NEUROLOGIC: Bilateral patellar and Achilles DTRs 1+ DERMATOLOGIC: No exanthem Initial Vital Signs Initial Vital Signs: Vital Signs Temperature 99.3 F 05/27/18 16:34 Pulse Rate 104 H 05/27/18 16:34 Respiratory Rate 22 05/27/18 16:34 Blood Pressure 145/87 H 05/27/18 16:34 Pulse Oximetry 100 05/27/18 16:34 <Jael Pop MD - Last Filed: 05/28/18 00:03> Initial Vital Signs Initial Vital Signs: Vital Signs Temperature 99.3 F 05/27/18 16:34 Pulse Rate 104 H 05/27/18 16:34 Respiratory Rate 22 05/27/18 16:34 Blood Pressure 145/87 H 05/27/18 16:34 Pulse Oximetry 100 05/27/18 16:34 Course <Milagros Romero PA-C - Last Filed: 05/27/18 22:58> Additional Information: Patient has not had any vomiting while in the department. She tolerated fluids and crackers. She only had minimal pain relief after oral medications and Toradol, did improve with the addition of Dilaudid, which she has had in the past. Suspect exacerbation of her back pain and spasm along with a small kidney stone based on her imaging. Explained that this should pass on its own given the size, is in a location that could contribute to her pain. She does have a follow-up with primary care office tomorrow. She was given a prepack of Percocet, which she has taken at home previously, to use until then if needed. She was given a prescription for Robaxin which she has also used at home. Advised to resume her meloxicam tomorrow which she had been taking. Also had some WBCs but not bacteria on her micro. Given probable small kidney stone, prepack of Bactrim was started any prescription given for this as well which she will fill if needed tomorrow after seen by primary care Orders Ordered: ED Orders 05/27/18 20:45 Urine Culture Stat Urine Microscopic Stat 05/27/18 21:01 CT kidney ureter bladder (KUB) Stat 05/27/18 21:33 Complete Blood Count AUTO DIFF Stat Comprehensive Metabolic Panel Stat Lactate (Lactic Acid) Stat Lipase Stat Discontinued Medications Hydromorphone HCl (Dilaudid) 1 mg IV NOW ONE Stop: 05/27/18 21:57 Last Admin: 05/27/18 22:03 Dose: 1 mg Ketorolac Tromethamine (Toradol) 60 mg IM NOW ONE Stop: 05/27/18 20:19 Last Admin: 05/27/18 20:22 Dose: 60 mg Methocarbamol (Robaxin) 750 mg PO NOW ONE Stop: 05/27/18 20:19 Last Admin: 05/27/18 20:33 Dose: 750 mg Oxycodone/Acetaminophen (Percocet 5/325) 1 tab PO NOW ONE Stop: 05/27/18 20:19 Last Admin: 05/27/18 20:22 Dose: 1 tab Oxycodone/Acetaminophen (Endocet 5/325 Prepack) 1 bottle MISC SEEINSTR ONE Stop: 05/27/18 22:29 Last Admin: 05/27/18 22:46 Dose: 1 bottle Trimethoprim/Sulfamethoxazole (Bactrim Ds Prepack) 1 bottle MISC SEEINSTR ONE Stop: 05/27/18 22:29 Last Admin: 05/27/18 22:46 Dose: 1 bottle Vital Signs - 8 hr 05/27/18 16:34 05/27/18 22:12 05/27/18 22:57 Temperature 99.3 F Pulse Rate 104 H 83 79 Respiratory Rate 22 18 16 Blood Pressure 145/87 H 136/69 Blood Pressure [Left Arm] 140/66 Pulse Oximetry 100 94 99 <Jael Pop MD - Last Filed: 05/28/18 00:03> Orders Ordered: ED Orders 05/27/18 20:45 Urine Culture Stat Urine Microscopic Stat 05/27/18 21:01 CT kidney ureter bladder (KUB) Stat 05/27/18 21:33 Complete Blood Count AUTO DIFF Stat Comprehensive Metabolic Panel Stat Lactate (Lactic Acid) Stat Lipase Stat Discontinued Medications Hydromorphone HCl (Dilaudid) 1 mg IV NOW ONE Stop: 05/27/18 21:57 Last Admin: 05/27/18 22:03 Dose: 1 mg Ketorolac Tromethamine (Toradol) 60 mg IM NOW ONE Stop: 05/27/18 20:19 Last Admin: 05/27/18 20:22 Dose: 60 mg Methocarbamol (Robaxin) 750 mg PO NOW ONE Stop: 05/27/18 20:19 Last Admin: 05/27/18 20:33 Dose: 750 mg Oxycodone/Acetaminophen (Percocet 5/325) 1 tab PO NOW ONE Stop: 05/27/18 20:19 Last Admin: 05/27/18 20:22 Dose: 1 tab Oxycodone/Acetaminophen (Endocet 5/325 Prepack) 1 bottle MISC SEEINSTR ONE Stop: 05/27/18 22:29 Last Admin: 05/27/18 22:46 Dose: 1 bottle Trimethoprim/Sulfamethoxazole (Bactrim Ds Prepack) 1 bottle MISC SEEINSTR ONE Stop: 05/27/18 22:29 Last Admin: 05/27/18 22:46 Dose: 1 bottle Vital Signs - 8 hr 05/27/18 16:34 05/27/18 22:12 05/27/18 22:57 Temperature 99.3 F Pulse Rate 104 H 83 79 Respiratory Rate 22 18 16 Blood Pressure 145/87 H 136/69 Blood Pressure [Left Arm] 140/66 Pulse Oximetry 100 94 99 MDM - Back Pain/Injury <Milagros Romero PA-C - Last Filed: 05/27/18 22:58> Lab Data Attestation: I reviewed the patient's lab results. Result diagrams: 05/27/18 21:33 05/27/18 21:33 Lab Results 05/27/18 05/27/18 05/27/18 Range/Units 20:45 21:33 21:33 WBC 6.3 (4.5-11.0) X10^3/uL RBC 5.25 H (4.0-5.2) X10^6/uL Hgb 15.5 (12.0-16.0) g/dL Hct 43.9 (36-46) % MCV 83.6 (80-100) fL MCH 29.5 (26-34) PG MCHC 35.3 (30-36) % RDW 13.9 (11.6-14.8) % Plt Count 242 (150-400) X10^3/uL Neut % (Auto) 64.2 (50-75) % Lymph % (Auto) 24.9 L (25-40) % [place] % (Auto) 8.5 (3-14) % Eos % (Auto) 1.7 L (2-4) % Baso % (Auto) 0.7 (0-2) % Neut # (Auto) 4000 (7674-2408) /uL Sodium (137-145) mmol/L Potassium (3.4-5.1) mmol/L Chloride (98-107) mmol/L Carbon Dioxide (22-32) mmol/L BUN (7-17) mg/dL Creatinine (0.52-1.04) mg/dL Estimated GFR (>60) mL/min BUN/Creatinine Ratio (6-22) Glucose (70-100) mg/dL Lactate 0.6 L (0.7-2.1) mmol/L Calcium (8.4-10.2) mg/dL Total Bilirubin (0.2-1.3) mg/dL AST (14-36) IU/L ALT (9-52) IU/L Alkaline Phosphatase (38-126) U/L Total Protein (6.3-8.2) g/dL Albumin (3.5-5.0) g/dL Globulin (1.7-4.1) g/dL Albumin/Globulin Ratio (1.0-2.8) Lipase (23-300) U/L Urine RBC None seen (0-5/HPF) Urine WBC 5-10/hpf H (0-5/HPF) Ur Squamous Epith Cells 0-1 /hpf Urine Bacteria None seen (None) Ur Culture Indicated? Specimen cultured Micro UA Comment Not Reportable 05/27/18 Range/Units 21:33 WBC (4.5-11.0) X10^3/uL RBC (4.0-5.2) X10^6/uL Hgb (12.0-16.0) g/dL Hct (36-46) % MCV (80-100) fL MCH (26-34) PG MCHC (30-36) % RDW (11.6-14.8) % Plt Count (150-400) X10^3/uL Neut % (Auto) (50-75) % Lymph % (Auto) (25-40) % [place] % (Auto) (3-14) % Eos % (Auto) (2-4) % Baso % (Auto) (0-2) % Neut # (Auto) (9315-9386) /uL Sodium 144 (137-145) mmol/L Potassium 3.8 (3.4-5.1) mmol/L Chloride 107 (98-107) mmol/L Carbon Dioxide 24 (22-32) mmol/L BUN 12 (7-17) mg/dL Creatinine 0.70 (0.52-1.04) mg/dL Estimated GFR > 60.0 (>60) mL/min BUN/Creatinine Ratio 17.1 (6-22) Glucose 99 (70-100) mg/dL Lactate (0.7-2.1) mmol/L Calcium 9.6 (8.4-10.2) mg/dL Total Bilirubin 0.6 (0.2-1.3) mg/dL AST 31 (14-36) IU/L ALT 33 (9-52) IU/L Alkaline Phosphatase 53 (38-126) U/L Total Protein 7.5 (6.3-8.2) g/dL Albumin 4.4 (3.5-5.0) g/dL Globulin 3.1 (1.7-4.1) g/dL Albumin/Globulin Ratio 1.4 (1.0-2.8) Lipase 169 (23-300) U/L Urine RBC (0-5/HPF) Urine WBC (0-5/HPF) Ur Squamous Epith Cells Urine Bacteria (None) Ur Culture Indicated? Micro UA Comment Urine Dip Bedside Urine Glucose Negative Bedside Urine Bilirubin - Negative Bedside Urine Ketone - Negative Urine Specific [place] 1.030 Bedside Urine Occult Blood - Negative Bedside Urine pH 5.5 Bedside Urine Protein - Negative Bedside Urine Urobilinogen - Negative Bedside Urine Nitrite - Negative Bedside Urine Leukocytes +/- [address] scan - abdomen: Radiologist's impression: [place] [id number] CT Scan Report Signed Patient: Alcon Suarez [facility]#: [id number] : 9Acct:[id number] Age/Sex: 57 / FDate of Service: 05/27/18 Loc: ED Accession Number: [id number] Procedure: CT kidney ureter bladder (KUB) Ordering Provider: Milagros Romero P.A-C PROCEDURE: CT KIDNEY URETER BLADDER (KUB) INDICATIONS: Right flank pain, stone TECHNIQUE: Noncontrast 5 mm thick sections acquired from the diaphragms to the symphysis. 5 mm thick coronal and sagittal reformats were then performed. For radiation dose reduction, the following was used: automated exposure control, adjustment of mA and/or kV according to patient size. COMPARISON: None. FINDINGS: Image quality: Excellent. Lung bases: Lung bases are clear. Heart size is normal. Urinary system: Both kidneys are normal in size. No kidney stones. No hydronephrosis or perinephric fat stranding. Both ureters appear non-dilated throughout their expected courses. Bladder wall thickness is normal; no calcified bladder stones. Other solid organs: Liver is normal in size. Gallbladder appears normal. Pancreas is normal in contours. Spleen is normal in size. No adrenal nodules. Peritoneum and bowel: Unenhanced bowel loops demonstrate normal wall thickness and caliber. No free fluid or air. Nodes and vessels: No retroperitoneal or mesenteric adenopathy by size criteria. Aorta and inferior vena cava are normal in caliber. Abdominal wall: No ventral hernias. Pelvis: No free pelvic fluid. No inguinal hernias or adenopathy. A normal appendix is seen at the right lower quadrant. There is a 1.5-2 mm calcification along the expected course of the right ureter, best seen on series 2 image 73, but this is not associated with ureteral dilatation or inflammation in this area and it may simply represent a coincidental phlebolith. Bones: No suspicious bony lesions. No vertebral body compression fractures. IMPRESSION: No hydronephrosis or nephrolithiasis is found. Approximately at the axial level of the acetabulum on the right there is a small 2 mm calcification which is not associated with ureteral dilatation or inflammation but conceivably could represent a nonobstructive distal ureteral stone. It might also represent a coincidental small phlebolith at that site. No old comparison CT is available to establish chronicity of this finding. See series 2 image 73. Dictated by: Sahil Whitney M.D. on 05/27/2018 at 21:38 Approved by: Sahil Whitney M.D. on 05/27/2018 at 21:43 <Jael Pop MD - Last Filed: 05/28/18 00:03> Lab Data Lab Results 05/27/18 05/27/18 05/27/18 Range/Units 20:45 21:33 21:33 WBC 6.3 (4.5-11.0) X10^3/uL RBC 5.25 H (4.0-5.2) X10^6/uL Hgb 15.5 (12.0-16.0) g/dL Hct 43.9 (36-46) % MCV 83.6 (80-100) fL MCH 29.5 (26-34) PG MCHC 35.3 (30-36) % RDW 13.9 (11.6-14.8) % Plt Count 242 (150-400) X10^3/uL Neut % (Auto) 64.2 (50-75) % Lymph % (Auto) 24.9 L (25-40) % [place] % (Auto) 8.5 (3-14) % Eos % (Auto) 1.7 L (2-4) % Baso % (Auto) 0.7 (0-2) % Neut # (Auto) 4000 (3329-9274) /uL Sodium (137-145) mmol/L Potassium (3.4-5.1) mmol/L Chloride (98-107) mmol/L Carbon Dioxide (22-32) mmol/L BUN (7-17) mg/dL Creatinine (0.52-1.04) mg/dL Estimated GFR (>60) mL/min BUN/Creatinine Ratio (6-22) Glucose (70-100) mg/dL Lactate 0.6 L (0.7-2.1) mmol/L Calcium (8.4-10.2) mg/dL Total Bilirubin (0.2-1.3) mg/dL AST (14-36) IU/L ALT (9-52) IU/L Alkaline Phosphatase (38-126) U/L Total Protein (6.3-8.2) g/dL Albumin (3.5-5.0) g/dL Globulin (1.7-4.1) g/dL Albumin/Globulin Ratio (1.0-2.8) Lipase (23-300) U/L Urine RBC None seen (0-5/HPF) Urine WBC 5-10/hpf H (0-5/HPF) Ur Squamous Epith Cells 0-1 /hpf Urine Bacteria None seen (None) Ur Culture Indicated? Specimen cultured Micro UA Comment Not Reportable 05/27/18 Range/Units 21:33 WBC (4.5-11.0) X10^3/uL RBC (4.0-5.2) X10^6/uL Hgb (12.0-16.0) g/dL Hct (36-46) % MCV (80-100) fL MCH (26-34) PG MCHC (30-36) % RDW (11.6-14.8) % Plt Count (150-400) X10^3/uL Neut % (Auto) (50-75) % Lymph % (Auto) (25-40) % [place] % (Auto) (3-14) % Eos % (Auto) (2-4) % Baso % (Auto) (0-2) % Neut # (Auto) (2743-3820) /uL Sodium 144 (137-145) mmol/L Potassium 3.8 (3.4-5.1) mmol/L Chloride 107 (98-107) mmol/L Carbon Dioxide 24 (22-32) mmol/L BUN 12 (7-17) mg/dL Creatinine 0.70 (0.52-1.04) mg/dL Estimated GFR > 60.0 (>60) mL/min BUN/Creatinine Ratio 17.1 (6-22) Glucose 99 (70-100) mg/dL Lactate (0.7-2.1) mmol/L Calcium 9.6 (8.4-10.2) mg/dL Total Bilirubin 0.6 (0.2-1.3) mg/dL AST 31 (14-36) IU/L ALT 33 (9-52) IU/L Alkaline Phosphatase 53 (38-126) U/L Total Protein 7.5 (6.3-8.2) g/dL Albumin 4.4 (3.5-5.0) g/dL Globulin 3.1 (1.7-4.1) g/dL Albumin/Globulin Ratio 1.4 (1.0-2.8) Lipase 169 (23-300) U/L Urine RBC (0-5/HPF) Urine WBC (0-5/HPF) Ur Squamous Epith Cells Urine Bacteria (None) Ur Culture Indicated? Micro UA Comment Urine Dip Bedside Urine Glucose Negative Bedside Urine Bilirubin - Negative Bedside Urine Ketone - Negative Urine Specific [place] 1.030 Bedside Urine Occult Blood - Negative Bedside Urine pH 5.5 Bedside Urine Protein - Negative Bedside Urine Urobilinogen - Negative Bedside Urine Nitrite - Negative Bedside Urine Leukocytes +/- 15 Esterase Discharge Plan Departure Patient Disposition: Home Clinical Impression: Lumbar pain, Muscle spasm, Kidney stone on right side Discharge Date/Time: 05/27/18 22:58 Interventions: ED Discharge Assessment Last Done: 05/27/18 22:57 Instructions: DI for Kidney Stones, DI for Low Back Pain Activity Restrictions/Additional Instructions: Please return as we talked about if you have acutely worsening symptoms/pain again, or new symptoms such as fever or protracted vomiting, leg weakness, groin numbness, or inability to urinate. Otherwise, please rest at home tonight, start the antibiotic that we gave you and also you have a few Percocet to take if needed while waiting for your appointment with primary care tomorrow. You can also use your muscle relaxant if needed and you should start taking your Mobic again tomorrow. I have sent in a prescription for a little bit of the muscle relaxant as well as additional antibiotic to [facility] for you so you can pick them up if needed after you see your primary care provider tomorrow. There was concern for a probable small kidney stone on your CT scan today which was in a location consistent with your pain, so I suspect this contributed as well as your ongoing back pain and spasm. The kidney stone was not causing a blockage and it is very small, so it should pass on its own. Prescriptions: New methocarbamol [Robaxin] 500 mg tablet 500 mg PO QID Qty: 10 RF: 0 sulfamethoxazole-trimethoprim [Bactrim DS] 800-160 mg tablet 1 tab PO BID Qty: 8 RF: 0 No Action amlodipine [Norvasc] 5 MG tablet 5 mg PO DAILY Qty: 0 RF: 0 cyclobenzaprine 10 mg tablet 10 mg PO TID PRN (Reason: muscle spasm) Qty: 15 RF: 0 hydrocodone-acetaminophen [[place]] 5-325 mg tablet 1 tab PO Q4-6H PRN (Reason: pain) Qty: 10 RF: 0 escitalopram oxalate [Lexapro] 10 mg Tablet 10 mg PO DAILY RF: 0 fluticasone 50 mcg/actuation spray,suspension 2 spray NASAL DAILY Qty: 15.8 RF: 0 meloxicam [Mobic] 15 mg tablet 15 mg PO DAILY Qty: 30 RF: 0 oxycodone-acetaminophen 5-325 mg tablet 1 tab PO Q4H PRN (Reason: pain) RF: 0 methocarbamol 750 mg tablet 750 mg PO Q4H PRN (Reason: Spasms) RF: 0 montelukast 10 mg tablet 10 mg PO DAILY RF: 0 loratadine 10 mg tablet 10 mg PO DAILY RF: 0 Referrals: Leland Zamora MD [Primary Care Provider] -
[2018-05-27] MEDS: OXYCODONE/ACETAMINOPHEN 5/325 TABLET 1 TAB PO (20:22)
[2018-05-27] MEDS: KETOROLAC 60 MG/2 ML VIAL IM (20:22)
[2018-05-27] MEDS: METHOCARBAMOL 500 MG TABLET 750 MG PO (20:33)
--- NOTE | 2018-05-27 20:43 | ED_ITS ---
HPI - Back Pain/Injury <Milagros Romero PA-C - Last Filed: 05/27/18 22:58> General Chief Complaint: Back Pain/Injury Stated Complaint: LOWER BACK PAIN Time Seen by Provider: 05/27/18 19:55 Source: patient Mode of arrival: ambulatory Limitations: no limitations History of Present Illness HPI Narrative: This 57-year-old female comes in due to worsening low back pain. She states that she has had lumbar back pain and spasms for 6 weeks, just got approved for MRI and is working on getting that scheduled. She states that she has taken Mobic, along with Percocet and Robaxin off and on at home for these ( none today), which has been helpful. She states that she was sitting with a heating pad on her chair today when she suddenly got severe right-sided pain that felt like spasm and brought her to her knees when she tried to get up. She states at times it feels like this pain can radiate around her side, but feels like it starts in the back. She states that most of her spasms have been on the left side, so this is atypical. She states that she has not had any new falls or injury. She states that pain radiates into the hip and gluteal area little bit but not down the leg. She denies any weakness or paresthesia in her legs. She has been urinating normally. She has had some intermittent diarrhea since the onset of her symptoms, a few episodes today, but denies any new changes. She states that pain is worse with walking and moving her trunk, better lying on her side and at rest. She has some nausea when she has increased pain. She has not had any vomiting this evening, no fevers at home. She denies any new hematuria, dysuria, or other new complaints on systems review such as recent illness, chest pain or dyspnea Related Data Home Medications Medication Instructions Recorded Confirmed amlodipine [Norvasc] 5 mg PO DAILY #0 07/30/17 05/27/18 escitalopram oxalate [Lexapro] 10 mg PO DAILY 11/07/17 05/27/18 loratadine 10 mg PO DAILY 05/27/18 05/27/18 methocarbamol 750 mg PO Q4H PRN 05/27/18 05/27/18 montelukast 10 mg PO DAILY 05/27/18 05/27/18 oxycodone-acetaminophen 1 tab PO Q4H PRN 05/27/18 05/27/18 Previous Rx's Medication Instructions Recorded fluticasone 2 spray NASAL DAILY #15.8 gram 11/07/17 cyclobenzaprine 10 mg PO TID PRN #15 tab 03/22/18 hydrocodone-acetaminophen [[place]] 1 tab PO Q4-6H PRN #10 tab 03/22/18 meloxicam [Mobic] 15 mg PO DAILY #30 tab 04/19/18 methocarbamol [Robaxin] 500 mg PO QID #10 tab 05/27/18 sulfamethoxazole-trimethoprim 1 tab PO BID #8 tab 05/27/18 [Bactrim DS] Allergies Allergy/AdvReac Type Severity Reaction Status Date / Time No Known Drug Allergies Allergy Verified 05/27/18 16:38 Review of Systems <Milagros Romero PA-C - Last Filed: 05/27/18 22:58> Review of Systems All systems reviewed & are unremarkable except as noted in HPI and below Exam <Milagros Romero PA-C - Last Filed: 05/27/18 22:58> Narrative Exam Narrative: GENERAL APPEARANCE: Patient lying on her side, appears uncomfortable but in NAD PULMONARY: Lungs clear to auscultation bilaterally CV: Regular rhythm regular without murmur, normal S1 and S2, no S3 or S4 ABDOMEN: Soft, nondistended, +bowel sounds x4 quadrants. Mild tenderness over the right inferior lateral flank and right lateral suprapubic area without guarding or rebound, no tenderness elsewhere over the abdomen MUSCULOSKELETAL: No point tenderness over the lumbar spine. Tender over the right lumbar paraspinal musculature lateral to the midclavicular line throughout. No tenderness over the right SI joint or hips. Limited range of motion of the trunk secondary to tenderness. Lower extremity strength 5/5 bilateral hip flexors, knee extensors, foot plantar flexion. Negative modified straight leg raise. She ambulates bearing full weight but with the spine flexed and a shortened gait NEUROLOGIC: Bilateral patellar and Achilles DTRs 1+ DERMATOLOGIC: No exanthem Initial Vital Signs Initial Vital Signs: Vital Signs Temperature 99.3 F 05/27/18 16:34 Pulse Rate 104 H 05/27/18 16:34 Respiratory Rate 22 05/27/18 16:34 Blood Pressure 145/87 H 05/27/18 16:34 Pulse Oximetry 100 05/27/18 16:34 <Jael Pop MD - Last Filed: 05/28/18 00:03> Initial Vital Signs Initial Vital Signs: Vital Signs Temperature 99.3 F 05/27/18 16:34 Pulse Rate 104 H 05/27/18 16:34 Respiratory Rate 22 05/27/18 16:34 Blood Pressure 145/87 H 05/27/18 16:34 Pulse Oximetry 100 05/27/18 16:34 Course <Milagros Romero PA-C - Last Filed: 05/27/18 22:58> Additional Information: Patient has not had any vomiting while in the department. She tolerated fluids and crackers. She only had minimal pain relief after oral medications and Toradol, did improve with the addition of Dilaudid, which she has had in the past. Suspect exacerbation of her back pain and spasm along with a small kidney stone based on her imaging. Explained that this should pass on its own given the size, is in a location that could contribute to her pain. She does have a follow-up with primary care office tomorrow. She was given a prepack of Percocet, which she has taken at home previously, to use until then if needed. She was given a prescription for Robaxin which she has also used at home. Advised to resume her meloxicam tomorrow which she had been taking. Also had some WBCs but not bacteria on her micro. Given probable small kidney stone, prepack of Bactrim was started any prescription given for this as well which she will fill if needed tomorrow after seen by primary care Orders Ordered: ED Orders 05/27/18 20:45 Urine Culture Stat Urine Microscopic Stat 05/27/18 21:01 CT kidney ureter bladder (KUB) Stat 05/27/18 21:33 Complete Blood Count AUTO DIFF Stat Comprehensive Metabolic Panel Stat Lactate (Lactic Acid) Stat Lipase Stat Discontinued Medications Hydromorphone HCl (Dilaudid) 1 mg IV NOW ONE Stop: 05/27/18 21:57 Last Admin: 05/27/18 22:03 Dose: 1 mg Ketorolac Tromethamine (Toradol) 60 mg IM NOW ONE Stop: 05/27/18 20:19 Last Admin: 05/27/18 20:22 Dose: 60 mg Methocarbamol (Robaxin) 750 mg PO NOW ONE Stop: 05/27/18 20:19 Last Admin: 05/27/18 20:33 Dose: 750 mg Oxycodone/Acetaminophen (Percocet 5/325) 1 tab PO NOW ONE Stop: 05/27/18 20:19 Last Admin: 05/27/18 20:22 Dose: 1 tab Oxycodone/Acetaminophen (Endocet 5/325 Prepack) 1 bottle MISC SEEINSTR ONE Stop: 05/27/18 22:29 Last Admin: 05/27/18 22:46 Dose: 1 bottle Trimethoprim/Sulfamethoxazole (Bactrim Ds Prepack) 1 bottle MISC SEEINSTR ONE Stop: 05/27/18 22:29 Last Admin: 05/27/18 22:46 Dose: 1 bottle Vital Signs - 8 hr 05/27/18 16:34 05/27/18 22:12 05/27/18 22:57 Temperature 99.3 F Pulse Rate 104 H 83 79 Respiratory Rate 22 18 16 Blood Pressure 145/87 H 136/69 Blood Pressure [Left Arm] 140/66 Pulse Oximetry 100 94 99 <Jael Pop MD - Last Filed: 05/28/18 00:03> Orders Ordered: ED Orders 05/27/18 20:45 Urine Culture Stat Urine Microscopic Stat 05/27/18 21:01 CT kidney ureter bladder (KUB) Stat 05/27/18 21:33 Complete Blood Count AUTO DIFF Stat Comprehensive Metabolic Panel Stat Lactate (Lactic Acid) Stat Lipase Stat Discontinued Medications Hydromorphone HCl (Dilaudid) 1 mg IV NOW ONE Stop: 05/27/18 21:57 Last Admin: 05/27/18 22:03 Dose: 1 mg Ketorolac Tromethamine (Toradol) 60 mg IM NOW ONE Stop: 05/27/18 20:19 Last Admin: 05/27/18 20:22 Dose: 60 mg Methocarbamol (Robaxin) 750 mg PO NOW ONE Stop: 05/27/18 20:19 Last Admin: 05/27/18 20:33 Dose: 750 mg Oxycodone/Acetaminophen (Percocet 5/325) 1 tab PO NOW ONE Stop: 05/27/18 20:19 Last Admin: 05/27/18 20:22 Dose: 1 tab Oxycodone/Acetaminophen (Endocet 5/325 Prepack) 1 bottle MISC SEEINSTR ONE Stop: 05/27/18 22:29 Last Admin: 05/27/18 22:46 Dose: 1 bottle Trimethoprim/Sulfamethoxazole (Bactrim Ds Prepack) 1 bottle MISC SEEINSTR ONE Stop: 05/27/18 22:29 Last Admin: 05/27/18 22:46 Dose: 1 bottle Vital Signs - 8 hr 05/27/18 16:34 05/27/18 22:12 05/27/18 22:57 Temperature 99.3 F Pulse Rate 104 H 83 79 Respiratory Rate 22 18 16 Blood Pressure 145/87 H 136/69 Blood Pressure [Left Arm] 140/66 Pulse Oximetry 100 94 99 MDM - Back Pain/Injury <Milagros Romero PA-C - Last Filed: 05/27/18 22:58> Lab Data Attestation: I reviewed the patient's lab results. Result diagrams: 05/27/18 21:33 05/27/18 21:33 Lab Results 05/27/18 05/27/18 05/27/18 Range/Units 20:45 21:33 21:33 WBC 6.3 (4.5-11.0) X10^3/uL RBC 5.25 H (4.0-5.2) X10^6/uL Hgb 15.5 (12.0-16.0) g/dL Hct 43.9 (36-46) % MCV 83.6 (80-100) fL MCH 29.5 (26-34) PG MCHC 35.3 (30-36) % RDW 13.9 (11.6-14.8) % Plt Count 242 (150-400) X10^3/uL Neut % (Auto) 64.2 (50-75) % Lymph % (Auto) 24.9 L (25-40) % Gilchrist % (Auto) 8.5 (3-14) % Eos % (Auto) 1.7 L (2-4) % Baso % (Auto) 0.7 (0-2) % Neut # (Auto) 4000 (8857-2800) /uL Sodium (137-145) mmol/L Potassium (3.4-5.1) mmol/L Chloride (98-107) mmol/L Carbon Dioxide (22-32) mmol/L BUN (7-17) mg/dL Creatinine (0.52-1.04) mg/dL Estimated GFR (>60) mL/min BUN/Creatinine Ratio (6-22) Glucose (70-100) mg/dL Lactate 0.6 L (0.7-2.1) mmol/L Calcium (8.4-10.2) mg/dL Total Bilirubin (0.2-1.3) mg/dL AST (14-36) IU/L ALT (9-52) IU/L Alkaline Phosphatase (38-126) U/L Total Protein (6.3-8.2) g/dL Albumin (3.5-5.0) g/dL Globulin (1.7-4.1) g/dL Albumin/Globulin Ratio (1.0-2.8) Lipase (23-300) U/L Urine RBC None seen (0-5/HPF) Urine WBC 5-10/hpf H (0-5/HPF) Ur Squamous Epith Cells 0-1 /hpf Urine Bacteria None seen (None) Ur Culture Indicated? Specimen cultured Micro UA Comment Not Reportable 05/27/18 Range/Units 21:33 WBC (4.5-11.0) X10^3/uL RBC (4.0-5.2) X10^6/uL Hgb (12.0-16.0) g/dL Hct (36-46) % MCV (80-100) fL MCH (26-34) PG MCHC (30-36) % RDW (11.6-14.8) % Plt Count (150-400) X10^3/uL Neut % (Auto) (50-75) % Lymph % (Auto) (25-40) % Gilchrist % (Auto) (3-14) % Eos % (Auto) (2-4) % Baso % (Auto) (0-2) % Neut # (Auto) (8008-6418) /uL Sodium 144 (137-145) mmol/L Potassium 3.8 (3.4-5.1) mmol/L Chloride 107 (98-107) mmol/L Carbon Dioxide 24 (22-32) mmol/L BUN 12 (7-17) mg/dL Creatinine 0.70 (0.52-1.04) mg/dL Estimated GFR > 60.0 (>60) mL/min BUN/Creatinine Ratio 17.1 (6-22) Glucose 99 (70-100) mg/dL Lactate (0.7-2.1) mmol/L Calcium 9.6 (8.4-10.2) mg/dL Total Bilirubin 0.6 (0.2-1.3) mg/dL AST 31 (14-36) IU/L ALT 33 (9-52) IU/L Alkaline Phosphatase 53 (38-126) U/L Total Protein 7.5 (6.3-8.2) g/dL Albumin 4.4 (3.5-5.0) g/dL Globulin 3.1 (1.7-4.1) g/dL Albumin/Globulin Ratio 1.4 (1.0-2.8) Lipase 169 (23-300) U/L Urine RBC (0-5/HPF) Urine WBC (0-5/HPF) Ur Squamous Epith Cells Urine Bacteria (None) Ur Culture Indicated? Micro UA Comment Urine Dip Bedside Urine Glucose Negative Bedside Urine Bilirubin - Negative Bedside Urine Ketone - Negative Urine Specific Kimberly 1.030 Bedside Urine Occult Blood - Negative Bedside Urine pH 5.5 Bedside Urine Protein - Negative Bedside Urine Urobilinogen - Negative Bedside Urine Nitrite - Negative Bedside Urine Leukocytes +/- [address] scan - abdomen: Radiologist's impression: [place] [id number] CT Scan Report Signed Patient: Alcon Suarez [facility]#: [id number] : 9Acct:[id number] Age/Sex: 57 / FDate of Service: 05/27/18 Loc: ED Accession Number: [id number] Procedure: CT kidney ureter bladder (KUB) Ordering Provider: Milagros Romero P.A-C PROCEDURE: CT KIDNEY URETER BLADDER (KUB) INDICATIONS: Right flank pain, stone TECHNIQUE: Noncontrast 5 mm thick sections acquired from the diaphragms to the symphysis. 5 mm thick coronal and sagittal reformats were then performed. For radiation dose reduction, the following was used: automated exposure control, adjustment of mA and/or kV according to patient size. COMPARISON: None. FINDINGS: Image quality: Excellent. Lung bases: Lung bases are clear. Heart size is normal. Urinary system: Both kidneys are normal in size. No kidney stones. No hydronephrosis or perinephric fat stranding. Both ureters appear non-dilated throughout their expected courses. Bladder wall thickness is normal; no calcified bladder stones. Other solid organs: Liver is normal in size. Gallbladder appears normal. Pancreas is normal in contours. Spleen is normal in size. No adrenal nodules. Peritoneum and bowel: Unenhanced bowel loops demonstrate normal wall thickness and caliber. No free fluid or air. Nodes and vessels: No retroperitoneal or mesenteric adenopathy by size criteria. Aorta and inferior vena cava are normal in caliber. Abdominal wall: No ventral hernias. Pelvis: No free pelvic fluid. No inguinal hernias or adenopathy. A normal appendix is seen at the right lower quadrant. There is a 1.5-2 mm calcification along the expected course of the right ureter, best seen on series 2 image 73, but this is not associated with ureteral dilatation or inflammation in this area and it may simply represent a coincidental phlebolith. Bones: No suspicious bony lesions. No vertebral body compression fractures. IMPRESSION: No hydronephrosis or nephrolithiasis is found. Approximately at the axial level of the acetabulum on the right there is a small 2 mm calcification which is not associated with ureteral dilatation or inflammation but conceivably could represent a nonobstructive distal ureteral stone. It might also represent a coincidental small phlebolith at that site. No old comparison CT is available to establish chronicity of this finding. See series 2 image 73. Dictated by: Sahil Whitney M.D. on 05/27/2018 at 21:38 Approved by: Sahil Whitney M.D. on 05/27/2018 at 21:43 <Jael Pop MD - Last Filed: 05/28/18 00:03> Lab Data Lab Results 05/27/18 05/27/18 05/27/18 Range/Units 20:45 21:33 21:33 WBC 6.3 (4.5-11.0) X10^3/uL RBC 5.25 H (4.0-5.2) X10^6/uL Hgb 15.5 (12.0-16.0) g/dL Hct 43.9 (36-46) % MCV 83.6 (80-100) fL MCH 29.5 (26-34) PG MCHC 35.3 (30-36) % RDW 13.9 (11.6-14.8) % Plt Count 242 (150-400) X10^3/uL Neut % (Auto) 64.2 (50-75) % Lymph % (Auto) 24.9 L (25-40) % Gilchrist % (Auto) 8.5 (3-14) % Eos % (Auto) 1.7 L (2-4) % Baso % (Auto) 0.7 (0-2) % Neut # (Auto) 4000 (7959-4615) /uL Sodium (137-145) mmol/L Potassium (3.4-5.1) mmol/L Chloride (98-107) mmol/L Carbon Dioxide (22-32) mmol/L BUN (7-17) mg/dL Creatinine (0.52-1.04) mg/dL Estimated GFR (>60) mL/min BUN/Creatinine Ratio (6-22) Glucose (70-100) mg/dL Lactate 0.6 L (0.7-2.1) mmol/L Calcium (8.4-10.2) mg/dL Total Bilirubin (0.2-1.3) mg/dL AST (14-36) IU/L ALT (9-52) IU/L Alkaline Phosphatase (38-126) U/L Total Protein (6.3-8.2) g/dL Albumin (3.5-5.0) g/dL Globulin (1.7-4.1) g/dL Albumin/Globulin Ratio (1.0-2.8) Lipase (23-300) U/L Urine RBC None seen (0-5/HPF) Urine WBC 5-10/hpf H (0-5/HPF) Ur Squamous Epith Cells 0-1 /hpf Urine Bacteria None seen (None) Ur Culture Indicated? Specimen cultured Micro UA Comment Not Reportable 05/27/18 Range/Units 21:33 WBC (4.5-11.0) X10^3/uL RBC (4.0-5.2) X10^6/uL Hgb (12.0-16.0) g/dL Hct (36-46) % MCV (80-100) fL MCH (26-34) PG MCHC (30-36) % RDW (11.6-14.8) % Plt Count (150-400) X10^3/uL Neut % (Auto) (50-75) % Lymph % (Auto) (25-40) % Gilchrist % (Auto) (3-14) % Eos % (Auto) (2-4) % Baso % (Auto) (0-2) % Neut # (Auto) (6446-1392) /uL Sodium 144 (137-145) mmol/L Potassium 3.8 (3.4-5.1) mmol/L Chloride 107 (98-107) mmol/L Carbon Dioxide 24 (22-32) mmol/L BUN 12 (7-17) mg/dL Creatinine 0.70 (0.52-1.04) mg/dL Estimated GFR > 60.0 (>60) mL/min BUN/Creatinine Ratio 17.1 (6-22) Glucose 99 (70-100) mg/dL Lactate (0.7-2.1) mmol/L Calcium 9.6 (8.4-10.2) mg/dL Total Bilirubin 0.6 (0.2-1.3) mg/dL AST 31 (14-36) IU/L ALT 33 (9-52) IU/L Alkaline Phosphatase 53 (38-126) U/L Total Protein 7.5 (6.3-8.2) g/dL Albumin 4.4 (3.5-5.0) g/dL Globulin 3.1 (1.7-4.1) g/dL Albumin/Globulin Ratio 1.4 (1.0-2.8) Lipase 169 (23-300) U/L Urine RBC (0-5/HPF) Urine WBC (0-5/HPF) Ur Squamous Epith Cells Urine Bacteria (None) Ur Culture Indicated? Micro UA Comment Urine Dip Bedside Urine Glucose Negative Bedside Urine Bilirubin - Negative Bedside Urine Ketone - Negative Urine Specific Kimberly 1.030 Bedside Urine Occult Blood - Negative Bedside Urine pH 5.5 Bedside Urine Protein - Negative Bedside Urine Urobilinogen - Negative Bedside Urine Nitrite - Negative Bedside Urine Leukocytes +/- 15 Esterase Discharge Plan Departure Patient Disposition: Home Clinical Impression: Lumbar pain, Muscle spasm, Kidney stone on right side Discharge Date/Time: 05/27/18 22:58 Interventions: ED Discharge Assessment Last Done: 05/27/18 22:57 Instructions: DI for Kidney Stones, DI for Low Back Pain Activity Restrictions/Additional Instructions: Please return as we talked about if you have acutely worsening symptoms/pain again, or new symptoms such as fever or protracted vomiting, leg weakness, groin numbness, or inability to urinate. Otherwise, please rest at home tonight , start the antibiotic that we gave you and also you have a few Percocet to take if needed while waiting for your appointment with primary care tomorrow. You can also use your muscle relaxant if needed and you should start taking your Mobic again tomorrow. I have sent in a prescription for a little bit of the muscle relaxant as well as additional antibiotic to [facility] for you so you can pick them up if needed after you see your primary care provider tomorrow. There was concern for a probable small kidney stone on your CT scan today which was in a location consistent with your pain, so I suspect this contributed as well as your ongoing back pain and spasm. The kidney stone was not causing a blockage and it is very small, so it should pass on its own. Prescriptions: New methocarbamol [Robaxin] 500 mg tablet 500 mg PO QID Qty: 10 RF: 0 sulfamethoxazole-trimethoprim [Bactrim DS] 800-160 mg tablet 1 tab PO BID Qty: 8 RF: 0 No Action amlodipine [Norvasc] 5 MG tablet 5 mg PO DAILY Qty: 0 RF: 0 cyclobenzaprine 10 mg tablet 10 mg PO TID PRN (Reason: muscle spasm) Qty: 15 RF: 0 hydrocodone-acetaminophen [[place]] 5-325 mg tablet 1 tab PO Q4-6H PRN (Reason: pain) Qty: 10 RF: 0 escitalopram oxalate [Lexapro] 10 mg Tablet 10 mg PO DAILY RF: 0 fluticasone 50 mcg/actuation spray,suspension 2 spray NASAL DAILY Qty: 15.8 RF: 0 meloxicam [Mobic] 15 mg tablet 15 mg PO DAILY Qty: 30 RF: 0 oxycodone-acetaminophen 5-325 mg tablet 1 tab PO Q4H PRN (Reason: pain) RF: 0 methocarbamol 750 mg tablet 750 mg PO Q4H PRN (Reason: Spasms) RF: 0 montelukast 10 mg tablet 10 mg PO DAILY RF: 0 loratadine 10 mg tablet 10 mg PO DAILY RF: 0 Referrals: Leland Zamora MD [Primary Care Provider] -
[2018-05-27 21:01] LABS: Bacteria Urine None Seen; RBC Urine None Seen (0-5/HPF)
--- NOTE | 2018-05-27 21:01 | DI.CT.S_ITS ---
PROCEDURE: CT KIDNEY URETER BLADDER (KUB) INDICATIONS: Right flank pain, stone TECHNIQUE: Noncontrast 5 mm thick sections acquired from the diaphragms to the symphysis. 5 mm thick coronal and sagittal reformats were then performed. For radiation dose reduction, the following was used: automated exposure control, adjustment of mA and/or kV according to patient size. COMPARISON: None. FINDINGS: Image quality: Excellent. Lung bases: Lung bases are clear. Heart size is normal. Urinary system: Both kidneys are normal in size. No kidney stones. No hydronephrosis or perinephric fat stranding. Both ureters appear non-dilated throughout their expected courses. Bladder wall thickness is normal; no calcified bladder stones. Other solid organs: Liver is normal in size. Gallbladder appears normal. Pancreas is normal in contours. Spleen is normal in size. No adrenal nodules. Peritoneum and bowel: Unenhanced bowel loops demonstrate normal wall thickness and caliber. No free fluid or air. Nodes and vessels: No retroperitoneal or mesenteric adenopathy by size criteria. Aorta and inferior vena cava are normal in caliber. Abdominal wall: No ventral hernias. Pelvis: No free pelvic fluid. No inguinal hernias or adenopathy. A normal appendix is seen at the right lower quadrant. There is a 1.5-2 mm calcification along the expected course of the right ureter, best seen on series 2 image 73, but this is not associated with ureteral dilatation or inflammation in this area and it may simply represent a coincidental phlebolith. Bones: No suspicious bony lesions. No vertebral body compression fractures. IMPRESSION: No hydronephrosis or nephrolithiasis is found. Approximately at the axial level of the acetabulum on the right there is a small 2 mm calcification which is not associated with ureteral dilatation or inflammation but conceivably could represent a nonobstructive distal ureteral stone. It might also represent a coincidental small phlebolith at that site. No old comparison CT is available to establish chronicity of this finding. See series 2 image 73. Dictated by: Sahil Whitney M.D. on 05/27/2018 at 21:38 Approved by: Sahil Whitney M.D. on 05/27/2018 at 21:43
[2018-05-27 21:16] LABS: WBC Urine 5-10/HPF (0-5/HPF)
[2018-05-27 21:17] LABS: Culture Indicated Urine Specimen Cultured; Squamous Epithelial Cell Urine 0-1 /HPF
[2018-05-27 21:39] LABS: Add Manual Diff / Slide Review NO; Basophils Percent Auto 0.7 % (0-2); Eosinophils Percent Auto 1.7 % (2-4); Hematocrit 43.9 % (36-46); Hemoglobin 15.5 g/dL (12.0-16.0); Lymphocytes Percent Auto 24.9 % (25-40); Mean Corpuscular HGB Conc 35.3 % (30-36); Mean Corpuscular Hemoglobin 29.5 PG (26-34); Mean Corpuscular Volume 83.6 fL (80-100); Monocytes Percent Auto 8.5 % (3-14); Neutrophils Absolute Auto 4000 /uL (3000-5900); Neutrophils Percent Auto 64.2 % (50-75); Platelet Count 242 X10^3/uL (150-400); Red Blood Cell Count 5.25 X10^6/uL (4.0-5.2); Red Cell Distribution Width 13.9 % (11.6-14.8); White Blood Cell Count 6.3 X10^3/uL (4.5-11.0)
[2018-05-27 21:47] LABS: Alanine Aminotransferase 33 IU/L (9-52); Albumin 4.4 g/dL (3.5-5.0); Albumin Globulin Ratio 1.4 (1.0-2.8); Alkaline Phosphatase 53 U/L (38-126); Aspartate Aminotransferase 31 IU/L (14-36); BUN Creatinine Ratio 17.1 (6-22); Bilirubin Total 0.6 mg/dL (0.2-1.3); Blood Urea Nitrogen 12 mg/dL (7-17); Calcium 9.6 mg/dL (8.4-10.2); Carbon Dioxide 24 mmol/L (22-32); Chloride 107 mmol/L (98-107); Estimated Glomerular Filt Rate > 60.0 mL/min (>60); Globulin 3.1 g/dL (1.7-4.1); Glucose 99 mg/dL (70-100); HEMOLYSIS 22 (0-50); Lipase 169 U/L (23-300); Potassium 3.8 mmol/L (3.4-5.1); Sodium 144 mmol/L (137-145); Total Protein 7.5 g/dL (6.3-8.2)
[2018-05-27 21:48] LABS: Lactate (Lactic Acid) 0.6 mmol/L (0.7-2.1)
[2018-05-27] MEDS: HYDROMORPHONE 1 MG INJ IV (22:03)
[2018-05-27 22:12] VITALS: BP 140/66; PULSE 83; RESP 18; O2SAT 94
[2018-05-27] MEDS: TRIMETH/SULFA 160/800 PREPACK 1 BOTTLE MISC (22:46)
[2018-05-27] MEDS: OXYCODONE/APAP 5/325 PREPACK 1 BOTTLE MISC (22:46)
[2018-05-27 22:57] VITALS: BP 136/69; PULSE 79; RESP 16; O2SAT 99
== END 2018-05-27 22:58 | disposition home or self-care (01) ==
PROVIDERS: Emergency Provider Internal Medicine; PCP Family Medicine
DX: N20.0 Calculus of kidney (principal); M54.5 Low back pain; M62.838 Other muscle spasm
CPT/HCPCS: 36591; 74176; 80053; 81003; 81015; 83605; 83690; 85025; 87086; 96372; 96374; 99283; 99284; J1170; J1885

== ENCOUNTER 2018-06-06 10:26 | Emergency (ER) | payer OTHER, SELFPAY ==
[2018-06-06] VITALS (7 sets, daily range): BP systolic 149–182; BP diastolic 77–98; PULSE 78–93; RESP 16–19; TEMP 37.1; O2SAT 95–98
--- NOTE | 2018-06-06 12:11 | ED_ITS ---
HPI - Back Pain/Injury <Milagros Romero PA-C - Last Filed: 06/06/18 22:10> General Chief Complaint: Back Pain/Injury Stated Complaint: THROWING UP,LOWER BACK R SIDE PAIN Time Seen by Provider: 06/06/18 12:09 Source: patient Mode of arrival: ambulatory Limitations: no limitations History of Present Illness HPI Narrative: This 57-year-old female returned with recurrent right-sided back pain and vomiting. She states that she still had severe pain for a few days after she was seen here about 10 days ago, but then started to improve. Yesterday, she walked a little more than she had been previously, but denies any other new activities or trauma. She states that pain is in the same location, on the right side of her low back more than left, radiates with burning or spasm down into the hip. Pain does not radiate into the legs. She states that when the pain is more severe and having spasms, this is when she tends to throw up. She does think it is pain related. She states she has vomited multiple times since last night and early this morning and twice while here. She states that she really does not have any abdominal pain but her belly feels sore all over from retching. She states that she has not eaten at all today or last night secondary to pain. She again denies any fever. She denies any numbness or weakness in her extremities. She denies any numbness in her groin area. She denies any new rashes. She denies any urinary symptoms or hematuria. She states that she had some constipation when on Percocet that improved with laxative. She feels like this is the same pain as before, slightly less severe, worse with being up and position changes, or sitting on her bottom. She states that she had an MRI on Sunday but has not received results yet [place] Related Data Home Medications Medication Instructions Recorded Confirmed amlodipine [Norvasc] 5 mg PO DAILY #0 07/30/17 06/06/18 escitalopram oxalate [Lexapro] 10 mg PO DAILY 11/07/17 06/06/18 fluticasone 2 spray NASAL DAILY PRN 06/06/18 06/06/18 Previous Rx's Medication Instructions Recorded meloxicam [Mobic] 15 mg PO DAILY #30 tab 04/19/18 oxycodone-acetaminophen [Percocet] 1 tab PO Q4-6H PRN #7 tab 06/06/18 Allergies Allergy/AdvReac Type Severity Reaction Status Date / Time No Known Drug Allergies Allergy Verified 05/27/18 16:38 Review of Systems <Milagros Romero PA-C - Last Filed: 06/06/18 22:10> Review of Systems All systems reviewed & are unremarkable except as noted in HPI and below Exam <Milagros Romero PA-C - Last Filed: 06/06/18 22:10> Narrative Exam Narrative: GENERAL APPEARANCE: Patient lying on her left side, in NAD PULMONARY: Lungs clear to auscultation bilaterally CV: Regular rhythm regular without murmur, normal S1 and S2, no S3 or S4 ABDOMEN: Soft, nondistended, +bowel sounds x4 quadrants. Mild generalized tenderness to palpation, no CVAT MUSCULOSKELETAL: No point tenderness over the lumbar spine. Minimal tenderness over the right lumbosacral musculature mid scapular line lateral, with no trigger points. No tenderness over the right SI joint or hips. Limited range of motion of the trunk secondary to tenderness. Lower extremity strength 5/5 bilateral hip flexors, knee extensors, foot plantar flexion. Negative modified straight leg raise. She is able to move from sit to stand and ambulate on her own.She ambulates bearing full weight but with the spine flexed and a shortened gait NEUROLOGIC: lower extremity sensation grossly intact DERMATOLOGIC: No exanthem Initial Vital Signs Initial Vital Signs: Vital Signs Temperature 98.7 F 06/06/18 10:27 Pulse Rate 93 H 06/06/18 10:27 Respiratory Rate 18 06/06/18 10:27 Blood Pressure 155/95 H 06/06/18 10:27 Pulse Oximetry 96 06/06/18 10:27 <Marilee Hull DO - Last Filed: 06/09/18 07:54> Initial Vital Signs Initial Vital Signs: Vital Signs Temperature 98.7 F 06/06/18 10:27 Pulse Rate 93 H 06/06/18 10:27 Respiratory Rate 18 06/06/18 10:27 Blood Pressure 155/95 H 06/06/18 10:27 Pulse Oximetry 96 06/06/18 10:27 Course <ROGER Caldera Last Filed: 06/06/18 22:10> Additional Information: patient is feeling markedly improved after medications. She is able to ambulate to the restroom and sit more comfortably. She did have an MRI done a couple of days ago. We were able to get report faxed and we did review, no clear pain source. I did offer imaging of her hip but she does not feel like the pain is generated there. Advised follow-up with PCP to talk about interim pain management and refer perhaps to interventional pain specialist /physiatry who can evaluate her pain in light of MRI findings. She is agreeable and will call 1st thing in the morning to arrange follow-up. She agreed to return if any acutely worsening symptoms or new symptoms such as weakness in the extremities or paresthesia Orders Ordered: Discontinued Medications Hydromorphone HCl (Dilaudid) 1 mg IV NOW ONE Stop: 06/06/18 12:23 Last Admin: 06/06/18 12:57 Dose: 1 mg Sodium Chloride (Normal Saline 0.9%) 1,000 mls @ 1,000 mls/hr IV BOLUS ONE Stop: 06/06/18 13:21 Last Infusion: 06/06/18 14:57 Dose: 0 mls/hr Admin: 06/06/18 12:56 Dose: 1,000 mls/hr Ketorolac Tromethamine (Toradol) 30 mg IV NOW ONE Stop: 06/06/18 12:23 Last Admin: 06/06/18 12:56 Dose: 30 mg Ondansetron HCl (Zofran) 4 mg IV NOW ONE Stop: 06/06/18 12:23 Last Admin: 06/06/18 12:56 Dose: 4 mg Vital Signs - 8 hr 06/06/18 10:27 06/06/18 11:44 Temperature 98.7 F Pulse Rate 93 H 78 Respiratory Rate 18 19 Blood Pressure 155/95 H Blood Pressure [Left Arm] 149/86 H Pulse Oximetry 96 97 <Marilee Hull DO - Last Filed: 06/09/18 07:54> Orders Ordered: Discontinued Medications Hydromorphone HCl (Dilaudid) 1 mg IV NOW ONE Stop: 06/06/18 12:23 Last Admin: 06/06/18 12:57 Dose: 1 mg Sodium Chloride (Normal Saline 0.9%) 1,000 mls @ 1,000 mls/hr IV BOLUS ONE Stop: 06/06/18 13:21 Last Infusion: 06/06/18 14:57 Dose: 0 mls/hr Admin: 06/06/18 12:56 Dose: 1,000 mls/hr Ketorolac Tromethamine (Toradol) 30 mg IV NOW ONE Stop: 06/06/18 12:23 Last Admin: 06/06/18 12:56 Dose: 30 mg Ondansetron HCl (Zofran) 4 mg IV NOW ONE Stop: 06/06/18 12:23 Last Admin: 06/06/18 12:56 Dose: 4 mg Vital Signs - 8 hr 06/06/18 10:27 06/06/18 11:44 Temperature 98.7 F Pulse Rate 93 H 78 Respiratory Rate 18 19 Blood Pressure 155/95 H Blood Pressure [Left Arm] 149/86 H Pulse Oximetry 96 97 MDM - Back Pain/Injury <Milagros Romero PA-C - Last Filed: 06/06/18 22:10> Lab Data Result diagrams: 06/06/18 13:00 06/06/18 13:00 Lab Results 06/06/18 06/06/18 06/06/18 Range/Units 13:00 13:00 13:00 WBC 6.7 (4.5-11.0) X10^3/uL RBC 5.43 H (4.0-5.2) X10^6/uL Hgb 15.8 (12.0-16.0) g/dL Hct 45.9 (36-46) % MCV 84.4 (80-100) fL MCH 29.0 (26-34) PG MCHC 34.4 (30-36) % RDW 13.6 (11.6-14.8) % Plt Count 243 (150-400) X10^3/uL Neut % (Auto) 72.8 (50-75) % Lymph % (Auto) 18.3 L (25-40) % [place] % (Auto) 6.1 (3-14) % Eos % (Auto) 1.8 L (2-4) % Baso % (Auto) 1.0 (0-2) % Neut # (Auto) 4900 (4993-5119) /uL Sodium 144 (137-145) mmol/L Potassium 3.6 (3.4-5.1) mmol/L Chloride 107 (98-107) mmol/L Carbon Dioxide 26 (22-32) mmol/L BUN 13 (7-17) mg/dL Creatinine 0.60 (0.52-1.04) mg/dL Estimated GFR > 60.0 (>60) mL/min BUN/Creatinine Ratio 21.7 (6-22) Glucose 95 (70-100) mg/dL Lactate (0.7-2.1) mmol/L Calcium 9.1 (8.4-10.2) mg/dL Total Bilirubin 0.6 (0.2-1.3) mg/dL AST 24 (14-36) IU/L ALT 31 (9-52) IU/L Alkaline Phosphatase 49 (38-126) U/L Total Protein 7.0 (6.3-8.2) g/dL Albumin 4.2 (3.5-5.0) g/dL Globulin 2.8 (1.7-4.1) g/dL Albumin/Globulin Ratio 1.5 (1.0-2.8) Lipase 110 (23-300) U/L Urine RBC 0-1/hpf (0-5/HPF) Urine WBC None seen (0-5/HPF) Urine Bacteria Occasional (0-1) (None) Ur Culture Indicated? Cult not indicated Micro UA Comment Not Reportable 06/06/18 Range/Units 13:20 WBC (4.5-11.0) X10^3/uL RBC (4.0-5.2) X10^6/uL Hgb (12.0-16.0) g/dL Hct (36-46) % MCV (80-100) fL MCH (26-34) PG MCHC (30-36) % RDW (11.6-14.8) % Plt Count (150-400) X10^3/uL Neut % (Auto) (50-75) % Lymph % (Auto) (25-40) % [place] % (Auto) (3-14) % Eos % (Auto) (2-4) % Baso % (Auto) (0-2) % Neut # (Auto) (7247-7113) /uL Sodium (137-145) mmol/L Potassium (3.4-5.1) mmol/L Chloride (98-107) mmol/L Carbon Dioxide (22-32) mmol/L BUN (7-17) mg/dL Creatinine (0.52-1.04) mg/dL Estimated GFR (>60) mL/min BUN/Creatinine Ratio (6-22) Glucose (70-100) mg/dL Lactate 0.7 (0.7-2.1) mmol/L Calcium (8.4-10.2) mg/dL Total Bilirubin (0.2-1.3) mg/dL AST (14-36) IU/L ALT (9-52) IU/L Alkaline Phosphatase (38-126) U/L Total Protein (6.3-8.2) g/dL Albumin (3.5-5.0) g/dL Globulin (1.7-4.1) g/dL Albumin/Globulin Ratio (1.0-2.8) Lipase (23-300) U/L Urine RBC (0-5/HPF) Urine WBC (0-5/HPF) Urine Bacteria (None) Ur Culture Indicated? Micro UA Comment Urine Dip Bedside Urine Glucose Negative Bedside Urine Bilirubin - Negative Bedside Urine Ketone - Negative Urine Specific [place] 1.020 Bedside Urine Occult Blood +/- Bedside Urine pH 6.0 Bedside Urine Protein - Negative Bedside Urine Urobilinogen - Negative Bedside Urine Nitrite - Negative Bedside Urine Leukocytes - Negative Esterase <Marilee Hull, DO - Last Filed: 06/09/18 07:54> Lab Data Lab Results 06/06/18 06/06/18 06/06/18 Range/Units 13:00 13:00 13:00 WBC 6.7 (4.5-11.0) X10^3/uL RBC 5.43 H (4.0-5.2) X10^6/uL Hgb 15.8 (12.0-16.0) g/dL Hct 45.9 (36-46) % MCV 84.4 (80-100) fL MCH 29.0 (26-34) PG MCHC 34.4 (30-36) % RDW 13.6 (11.6-14.8) % Plt Count 243 (150-400) X10^3/uL Neut % (Auto) 72.8 (50-75) % Lymph % (Auto) 18.3 L (25-40) % [place] % (Auto) 6.1 (3-14) % Eos % (Auto) 1.8 L (2-4) % Baso % (Auto) 1.0 (0-2) % Neut # (Auto) 4900 (5406-6419) /uL Sodium 144 (137-145) mmol/L Potassium 3.6 (3.4-5.1) mmol/L Chloride 107 (98-107) mmol/L Carbon Dioxide 26 (22-32) mmol/L BUN 13 (7-17) mg/dL Creatinine 0.60 (0.52-1.04) mg/dL Estimated GFR > 60.0 (>60) mL/min BUN/Creatinine Ratio 21.7 (6-22) Glucose 95 (70-100) mg/dL Lactate (0.7-2.1) mmol/L Calcium 9.1 (8.4-10.2) mg/dL Total Bilirubin 0.6 (0.2-1.3) mg/dL AST 24 (14-36) IU/L ALT 31 (9-52) IU/L Alkaline Phosphatase 49 (38-126) U/L Total Protein 7.0 (6.3-8.2) g/dL Albumin 4.2 (3.5-5.0) g/dL Globulin 2.8 (1.7-4.1) g/dL Albumin/Globulin Ratio 1.5 (1.0-2.8) Lipase 110 (23-300) U/L Urine RBC 0-1/hpf (0-5/HPF) Urine WBC None seen (0-5/HPF) Urine Bacteria Occasional (0-1) (None) Ur Culture Indicated? Cult not indicated Micro UA Comment Not Reportable 06/06/18 Range/Units 13:20 WBC (4.5-11.0) X10^3/uL RBC (4.0-5.2) X10^6/uL Hgb (12.0-16.0) g/dL Hct (36-46) % MCV (80-100) fL MCH (26-34) PG MCHC (30-36) % RDW (11.6-14.8) % Plt Count (150-400) X10^3/uL Neut % (Auto) (50-75) % Lymph % (Auto) (25-40) % [place] % (Auto) (3-14) % Eos % (Auto) (2-4) % Baso % (Auto) (0-2) % Neut # (Auto) (4379-7875) /uL Sodium (137-145) mmol/L Potassium (3.4-5.1) mmol/L Chloride (98-107) mmol/L Carbon Dioxide (22-32) mmol/L BUN (7-17) mg/dL Creatinine (0.52-1.04) mg/dL Estimated GFR (>60) mL/min BUN/Creatinine Ratio (6-22) Glucose (70-100) mg/dL Lactate 0.7 (0.7-2.1) mmol/L Calcium (8.4-10.2) mg/dL Total Bilirubin (0.2-1.3) mg/dL AST (14-36) IU/L ALT (9-52) IU/L Alkaline Phosphatase (38-126) U/L Total Protein (6.3-8.2) g/dL Albumin (3.5-5.0) g/dL Globulin (1.7-4.1) g/dL Albumin/Globulin Ratio (1.0-2.8) Lipase (23-300) U/L Urine RBC (0-5/HPF) Urine WBC (0-5/HPF) Urine Bacteria (None) Ur Culture Indicated? Micro UA Comment Urine Dip Bedside Urine Glucose Negative Bedside Urine Bilirubin - Negative Bedside Urine Ketone - Negative Urine Specific [place] 1.020 Bedside Urine Occult Blood +/- Bedside Urine pH 6.0 Bedside Urine Protein - Negative Bedside Urine Urobilinogen - Negative Bedside Urine Nitrite - Negative Bedside Urine Leukocytes - Negative Esterase Discharge Plan Departure Patient Disposition: Home Clinical Impression: Lumbar pain, Muscle spasm Discharge Date/Time: 06/06/18 14:59 Interventions: ED Discharge Assessment Last Done: 06/06/18 14:58 Instructions: DI for Low Back Pain Activity Restrictions/Additional Instructions: Please return as we talked about if you have any acutely worsening symptoms. Otherwise, since you are feeling better you can return home today. A little bit of gentle activity is okay but please do not overdo. Call your primary care providers today and let them know your in the emergency room again so that you can arrange follow-up and referral to a back pain specialist. You may also want to evaluate whether the hip could contribute since sometimes pain may be referred from that area. Please also be sure to refill your pain medicine there to have on hand Prescriptions: New oxycodone-acetaminophen [Percocet] 5-325 mg tablet 1 tab PO Q4-6H PRN (Reason: pain) Qty: 7 RF: 0 No Action amlodipine [Norvasc] 5 MG tablet 5 mg PO DAILY Qty: 0 RF: 0 fluticasone 50 mcg/actuation spray,suspension 2 spray NASAL DAILY PRN (Reason: Allergy Symptoms) RF: 0 escitalopram oxalate [Lexapro] 10 mg Tablet 10 mg PO DAILY RF: 0 meloxicam [Mobic] 15 mg tablet 15 mg PO DAILY Qty: 30 RF: 0 Referrals: Leland Zamora MD [Primary Care Provider] - <Marilee Hull DO - Last Filed: 06/09/18 07:54> [facility] ED Attending Ángelature Attestation: I was immediately available in the department for consultation. Documentation has been reviewed. I agree with assessment and plan.
[2018-06-06] MEDS: KETOROLAC 60 MG/2 ML VIAL 30 MG IV (12:56)
[2018-06-06] MEDS: ONDANSETRON 4 MG/2 ML INJ IV (12:56)
[2018-06-06] MEDS: SODIUM CHLORIDE 0.9% 1,000 ML 1000 ML IV (12:56)
[2018-06-06] MEDS: HYDROMORPHONE 1 MG INJ IV (12:57)
[2018-06-06 13:06] LABS: Add Manual Diff / Slide Review NO; Eosinophils Percent Auto 1.8 % (2-4); Hematocrit 45.9 % (36-46); Hemoglobin 15.8 g/dL (12.0-16.0); Lymphocytes Percent Auto 18.3 % (25-40); Mean Corpuscular HGB Conc 34.4 % (30-36); Mean Corpuscular Volume 84.4 fL (80-100); Monocytes Percent Auto 6.1 % (3-14); Neutrophils Absolute Auto 4900 /uL (3000-5900); Neutrophils Percent Auto 72.8 % (50-75); Platelet Count 243 X10^3/uL (150-400); Red Blood Cell Count 5.43 X10^6/uL (4.0-5.2); Red Cell Distribution Width 13.6 % (11.6-14.8); White Blood Cell Count 6.7 X10^3/uL (4.5-11.0)
[2018-06-06 13:23] LABS: WBC Urine None Seen (0-5/HPF)
[2018-06-06 13:38] LABS: Lactate (Lactic Acid) 0.7 mmol/L (0.7-2.1)
--- NOTE | 2018-06-06 13:38 | PC.NURSE ---
nausea. pt deferred right hip xray at this time. pt continue infusing normal saline.
[2018-06-06 13:39] LABS: Alanine Aminotransferase 31 IU/L (9-52); Albumin 4.2 g/dL (3.5-5.0); Albumin Globulin Ratio 1.5 (1.0-2.8); Alkaline Phosphatase 49 U/L (38-126); Aspartate Aminotransferase 24 IU/L (14-36); BUN Creatinine Ratio 21.7 (6-22); Bacteria Urine Occasional (0-1); Bilirubin Total 0.6 mg/dL (0.2-1.3); Blood Urea Nitrogen 13 mg/dL (7-17); Calcium 9.1 mg/dL (8.4-10.2); Carbon Dioxide 26 mmol/L (22-32); Chloride 107 mmol/L (98-107); Culture Indicated Urine Cult Not Indicated; Estimated Glomerular Filt Rate > 60.0 mL/min (>60); Globulin 2.8 g/dL (1.7-4.1); Glucose 95 mg/dL (70-100); HEMOLYSIS < 15 (0-50); Lipase 110 U/L (23-300); Potassium 3.6 mmol/L (3.4-5.1); RBC Urine 0-1/HPF (0-5/HPF); Sodium 144 mmol/L (137-145)
--- NOTE | 2018-06-06 13:39 | PC.NURSE ---
mri done at [facility], pt c/o right hip pain.
== END 2018-06-06 14:59 | disposition home or self-care (01) ==
PROVIDERS: Emergency Provider Internal Medicine; PCP Family Medicine
DX: M54.5 Low back pain (principal); M62.838 Other muscle spasm
CPT/HCPCS: 36591; 80053; 81003; 81015; 83605; 83690; 85025; 96361; 96374; 96375; 99283; 99284; J1170; J1885; J2405

== ENCOUNTER 2018-07-10 12:10 | Emergency (ER) | payer OTHER, SELFPAY ==
[2018-07-10 12:19] VITALS: BP 152/82; PULSE 112; RESP 20; TEMP 37.1; O2SAT 95; BMI 26.6
--- NOTE | 2018-07-10 12:35 | ED.BACK ---
HPI - Back Pain/Injury <YASSINE Espinosa - Last Filed: 07/10/18 22:05> General Chief Complaint: Back Pain/Injury Stated Complaint: back spasms, chronic Time Seen by Provider: 07/10/18 12:35 Source: patient Mode of arrival: ambulatory Limitations: no limitations History of Present Illness HPI Narrative: 57-year-old female with history of chronic lower back pain and is a former smoker here for complaint of exacerbation of her lower back pain over the past 4 days. She denies any trauma to the area. She is ambulatory to the emergency room. She denies any loss of bladder or bowel control. No fevers or chills. Increased pain with motion of the lower back. She has recently had MRI which according the patient shows a bulging disc and some radiculopathy. Current plan is for her to start physical therapy next week for her treatment. She states she is using muscle relaxers which has not been helping. She requests a small amount of pain medication to help with her exacerbation. She will follow up with her primary care provider. She denies any other concerns or complaints at this time. MD Complaint: back pain Related Data Home Medications Medication Instructions Recorded Confirmed amlodipine [Norvasc] 5 mg PO DAILY #0 07/30/17 07/10/18 escitalopram oxalate [Lexapro] 10 mg PO DAILY 11/07/17 07/10/18 fluticasone 2 spray NASAL DAILY PRN 06/06/18 07/10/18 celecoxib 100 mg PO BID 07/10/18 07/10/18 loratadine 10 mg PO DAILY 07/10/18 07/10/18 Previous Rx's Medication Instructions Recorded amitriptyline 10 mg tablet 10 mg PO BEDTIME #60 tab 06/12/18 naproxen 500 mg tablet 500 mg PO BID PRN #60 tab 06/12/18 sumatriptan 100 mg tablet 100 mg PO ONCE #10 tab 06/12/18 hydrocodone-acetaminophen [Verona] 1 tab PO Q6H PRN #10 tab 07/10/18 Allergies Allergy/AdvReac Type Severity Reaction Status Date / Time No Known Drug Allergies Allergy Verified 06/12/18 09:53 Review of Systems <YASSINE Espinosa - Last Filed: 07/10/18 22:05> Constitutional Denies chills, Denies fever(s), Denies lethargy and Denies weakness Eyes Denies change in vision, Denies eye discharge, Denies irritation and Denies loss of vision ENT Ears, Nose, Mouth, and Throat: Denies change in voice, Denies neck pain and Denies sore throat Cardiovascular Denies chest pain, Denies irregular heart rhythm, Denies lightheadedness, Denies palpitations, Denies dyspnea, Denies dyspnea on exertion and Denies orthopnea Respiratory Denies cough, Denies dyspnea, Denies dyspnea on exertion and Denies wheezing Gastrointestinal Gastrointestinal: Denies abdominal pain, Denies change in bowel habits, Denies diarrhea, Denies nausea and Denies vomiting Genitourinary Denies hematuria, Denies flank pain, Denies urinary incontinence and Denies urinary urgency Musculoskeletal Denies neck pain Comments: Chronic lower back pain Integumentary/Breasts Denies pruritus, Denies erythema, Denies rash and Denies wounds Neurologic Denies confusion, Denies loss of vision and Denies weakness Psychiatric Denies anxiety, Denies confusion, Denies depression, Denies homicidal ideation and Denies suicidal ideation Endocrine Denies palpitations Allergic/Immunologic Denies wheezing Exam <YASSINE Espinosa - Last Filed: 07/10/18 22:05> Initial Vital Signs Initial Vital Signs: Vital Signs Temperature 98.7 F 07/10/18 12:19 Pulse Rate 112 H 07/10/18 12:19 Respiratory Rate 20 07/10/18 12:19 Blood Pressure 152/82 H 07/10/18 12:19 Pulse Oximetry 95 07/10/18 12:19 Const General: cooperative and well developed Nutritional Appearance: well nourished Orientation: alert, awake, oriented x3 and not confused [facility] Mouth: oral mucosae normal and moist mucous membranes Eyes Conjunctivae: conjunctivae normal Sclera: sclerae normal Pupils: PERRL EOM: EOM intact bilaterally Resp Effort & Inspection: normal respiratory effort, able to speak in complete sentences, no respiratory distress and no use of accessory muscles Auscultation: clear to auscultation bilaterally, no rales, no rhonchi and no wheezes Cardio Rate: regular rate Rhythm: regular rhythm Heart Sounds: no click, no gallops, no murmurs and no rubs Pulses: normal peripheral pulses Back/Spine/Pelvis Other: Tenderness on palpation to the left lumbar paraspinals. No deformities. No midline tenderness. Distal sensation is intact. Distal pulses are intact. Distal range of motion is intact Skin General: no rashes or lesions noted, No jaundice and No petechiae Neuro General: alert, oriented x3, gait normal and no focal motor deficits Speech: speech normal <Shira Sheppard DO - Last Filed: 07/11/18 19:49> Initial Vital Signs Initial Vital Signs: Vital Signs Temperature 98.7 F 07/10/18 12:19 Pulse Rate 112 H 07/10/18 12:19 Respiratory Rate 20 07/10/18 12:19 Blood Pressure 152/82 H 07/10/18 12:19 Pulse Oximetry 95 07/10/18 12:19 Course <YASSINE Espinosa - Last Filed: 07/10/18 22:05> Vital Signs - 8 hr 07/10/18 12:19 Temperature 98.7 F Pulse Rate 112 H Respiratory Rate 20 Blood Pressure 152/82 H Pulse Oximetry 95 <Shira Sheppard DO - Last Filed: 07/11/18 19:49> Vital Signs - 8 hr 07/10/18 12:19 Temperature 98.7 F Pulse Rate 112 H Respiratory Rate 20 Blood Pressure 152/82 H Pulse Oximetry 95 MDM - Back Pain/Injury <YASSINE Espinosa - Last Filed: 07/10/18 22:05> MDM Narrative Medical decision making narrative: Exacerbation of chronic lower back pain with no trauma. The patient will follow up with physical therapy next week primary care provider next week for continued evaluation of chronic lower back pain. She is given a handful of a [place] for pain and not covered by her current medication regimen. She is instructed not to use the [place] in conjunction with her currently prescribed muscle relaxer. No driving while on the [place]. For any worsening symptoms return emergency room. Discharge Plan Departure Patient Disposition: Home Clinical Impression: Back pain Discharge Date/Time: 07/10/18 14:41 Interventions: ED Discharge Assessment Last Done: 07/10/18 13:37 Instructions: DI for Low Back Pain Activity Restrictions/Additional Instructions: Signs and symptoms presents exacerbation of chronic lower back pain. Follow up with primary care provider next week for further evaluation and treatment options. Follow up with physical therapy as scheduled. Small amount of [place] is prescribed for pain not covered by her current medication regimen. Do not use in conjunction with muscle relaxer. No driving while on the [place]. For any worsening symptoms return emergency room. Prescriptions: New hydrocodone-acetaminophen [Verona] 5-325 mg tablet 1 tab PO Q6H PRN (Reason: pain) Qty: 10 RF: 0 No Action amlodipine [Norvasc] 5 MG tablet 5 mg PO DAILY Qty: 0 RF: 0 fluticasone 50 mcg/actuation spray,suspension 2 spray NASAL DAILY PRN (Reason: Allergy Symptoms) RF: 0 celecoxib 100 mg capsule 100 mg PO BID RF: 0 loratadine 10 mg tablet 10 mg PO DAILY RF: 0 escitalopram oxalate [Lexapro] 10 mg Tablet 10 mg PO DAILY RF: 0 naproxen 500 mg tablet 500 mg PO BID PRN (Reason: pain) Qty: 60 RF: 2 amitriptyline 10 mg tablet 10 mg PO BEDTIME Qty: 60 RF: 2 sumatriptan succinate 100 mg tablet 100 mg PO ONCE Qty: 10 RF: 2 Referrals: [facility] [Provider Group] Leland Zamora MD [Primary Care Provider] - <Shira Sheppard DO - Last Filed: 07/11/18 19:49> [facility] ED Attending Cosignature Attestation: I was immediately available in the department for consultation. This documentation has been reviewed and I agree with assessment and plan. Supervised by Shira Sheppard DO
[2018-07-10 13:25] VITALS: BP 153/81; PULSE 80; RESP 18; O2SAT 98
== END 2018-07-10 14:41 | disposition home or self-care (01) ==
PROVIDERS: Emergency Provider Nurse Practitioner Family; PCP Family Medicine
DX: M54.9 Dorsalgia, unspecified (principal)
CPT/HCPCS: 99282

== ENCOUNTER 2019-06-17 10:22 | Emergency (ER) | payer OTHER, SELFPAY ==
[2019-06-17 10:43] VITALS: BP 168/80; PULSE 100; RESP 13; TEMP 36.3; O2SAT 98
--- NOTE | 2019-06-17 11:11 | ED.BACK ---
HPI - Back Pain/Injury <Milagros Romero PA-C - Last Filed: 06/17/19 19:19> General Chief Complaint: Back Pain/Injury Stated Complaint: lower back and hip pain Time Seen by Provider: 06/17/19 11:10 Source: patient Mode of arrival: Ambulatory Limitations: no limitations History of Present Illness HPI Narrative: This 58-year-old female with history of recurrent low back pain comes to ED secondary to exacerbation. She states that since last seen here she had actually been doing very well, had gone to physical therapy and was not needing pain medication or muscle relaxants most of the time. She states that she stepped down from her RV with a laundry basket and jolted her back about a week ago and has had pain in the right hip and gluteal area since. She states this feels similar in quality to previous pain exacerbations, with some spasms. Pain does not radiate past the gluteal area. She states she has been trying her lidocaine patches, using her Celebrex and started Robaxin again but doesn't help the more severe pain, and has to drive to [facility] over the past (she will not be driving), and pain is worse with sitting in the car. Pain is better lying on her side or with spine flexed standing up. She denies any new fever. She denies any bowel or bladder changes. She denies any weakness or paresthesia in the extremities. She feels that this is similar to previous exacerbations, requesting a little pain medication to help with travel. She notes that she was taking 250 mg of Robaxin to maximum of 500 mg per dose Related Data Home Medications Medication Instructions Recorded Confirmed amlodipine [Norvasc] 5 mg PO DAILY #0 07/30/17 07/10/18 escitalopram oxalate [Lexapro] 10 mg PO DAILY 11/07/17 07/10/18 fluticasone propionate 2 spray NASAL DAILY PRN 06/06/18 07/10/18 celecoxib 100 mg PO BID 07/10/18 07/10/18 loratadine 10 mg PO DAILY 07/10/18 07/10/18 Previous Rx's Medication Instructions Recorded amitriptyline 10 mg tablet 10 mg PO BEDTIME #60 tab 06/12/18 naproxen 500 mg tablet 500 mg PO BID PRN #60 tab 06/12/18 sumatriptan succinate 100 mg tablet 100 mg PO ONCE #10 tab 06/12/18 hydrocodone-acetaminophen [Bent] 1 tab PO Q6H PRN #10 tab 07/10/18 hydrocodone-acetaminophen [Bent] 1 tab PO Q4-6H PRN #8 tab 06/17/19 methocarbamol 1,000 mg PO Q6H PRN #14 tab 06/17/19 Allergies Allergy/AdvReac Type Severity Reaction Status Date / Time No Known Drug Allergies Allergy Verified 06/12/18 09:53 Review of Systems <Milagros Romero PA-C - Last Filed: 06/17/19 19:19> Review of Systems ROS Unobtainable: All systems reviewed & are unremarkable except as noted in HPI and below Patient History <Milagros Romero PA-C - Last Filed: 06/17/19 19:19> Medical History (Updated 06/17/19 @ 11:37 by Milagros Romero PA-C) Chronic back pain (Chronic) Depression (Acute) Fibromyalgia (Acute) GERD (gastroesophageal reflux disease) (Acute) Hypertension (Acute) Surgical History S/P sinus surgery (Acute) Status post foot surgery (Acute) Status post Mary fundoplication (Acute) Social History Smoking Status: Former smoker Smoking Status: Former smoker alcohol intake frequency: 0-2 drinks per day Substance Use Type: does not use Exam <Milagros Romero PA-C - Last Filed: 06/17/19 19:19> Narrative Exam Narrative: GENERAL APPEARANCE: Patient standing with spine slightly flexed, appears uncomfortable but in NAD PULMONARY: Lungs clear to auscultation bilaterally CV: Regular rhythm regular without murmur, normal S1 and S2, no S3 or S4 MUSCULOSKELETAL: No point tenderness over the lumbar or sacral spine. Moderate tenderness at and inferior to right SI joint and right posterior hip. No tenderness over the remainder of the hip. Lateral lumbar musculature mildly tender as well. Reduced trunk range of motion secondary to tenderness. Lower extremity strength 5/5 bilateral hip flexors, knee extensors, foot plantar flexion. Negative modified straight leg raise NEUROLOGIC: Lower extremity strength grossly intact bilaterally Initial Vital Signs Initial Vital Signs: Vital Signs Temperature 97.3 F L 06/17/19 10:43 Pulse Rate 100 H 06/17/19 10:43 Respiratory Rate 13 06/17/19 10:43 Blood Pressure 168/80 H 06/17/19 10:43 Pulse Oximetry 98 06/17/19 10:43 <Nilsa Colunga MD - Last Filed: 06/29/19 18:00> Initial Vital Signs Initial Vital Signs: Vital Signs Temperature 97.3 F L 06/17/19 10:43 Pulse Rate 100 H 06/17/19 10:43 Respiratory Rate 13 06/17/19 10:43 Blood Pressure 168/80 H 06/17/19 10:43 Pulse Oximetry 98 06/17/19 10:43 Course <Milagros Romero PA-C - Last Filed: 06/17/19 19:19> Course Additional Information: Patient does not have any alarm symptoms today and clear mechanism from injury. [facility] [employer] [employer] report reviewed, no opioids/controlled substances prescribed in the last several months. Refilled Robaxin and given a small amount of Bent, advised refills would be needed from PCP Orders Ordered: Discontinued Medications Hydrocodone Bitart/Acetaminophen (Bent 5/325) 2 tab PO NOW ONE Stop: 06/17/19 11:26 Last Admin: 06/17/19 11:51 Dose: 2 tab Documented by: ZABRINA Methocarbamol (Robaxin) 1,000 mg PO NOW ONE Stop: 06/17/19 11:26 Last Admin: 06/17/19 11:51 Dose: 1,000 mg Documented by: ZABRINA Vital Signs Vital signs: Vital Signs - 8 hr 06/17/19 11:55 Pulse Rate 92 H Respiratory Rate 19 Blood Pressure 152/80 H Pulse Oximetry 98 <Nilsa Colunga MD - Last Filed: 06/29/19 18:00> Orders Ordered: Discontinued Medications Hydrocodone Bitart/Acetaminophen (Bent 5/325) 2 tab PO NOW ONE Stop: 06/17/19 11:26 Last Admin: 06/17/19 11:51 Dose: 2 tab Documented by: ZABRINA Methocarbamol (Robaxin) 1,000 mg PO NOW ONE Stop: 06/17/19 11:26 Last Admin: 06/17/19 11:51 Dose: 1,000 mg Documented by: ABROWN Vital Signs Vital signs: Vital Signs - 8 hr 06/17/19 11:55 Pulse Rate 92 H Respiratory Rate 19 Blood Pressure 152/80 H Pulse Oximetry 98 Discharge Plan Departure Patient Disposition: Home Clinical Impression: Sacroiliac joint dysfunction of right side Discharge Date/Time: 06/17/19 11:55 Instructions: DI for Low Back Pain, DI Sacroiliac Joint Dysfunction Activity Restrictions/Additional Instructions: Please remember not to drive while you take hydrocodone or the Robaxin, since they can make you sleepy. Please continue your Celebrex and lidocaine patches, and you can use the pain medicine for the next couple of days as needed and continue the muscle relaxant as needed. Gentle walking on flat ground is okay, avoid sitting for long periods (get out of the car and stretch as frequently as possible). As we talked about, you should be seen emergently should you develop new symptoms such as fever, acutely worsening pain, weakness or numbness, or bowel or bladder changes. Otherwise, please follow-up with your PCP in a few days to assess your progress, determine whether to make any medication changes, etc.. If your symptoms persist, PT can be very helpful for this as well. I sent your prescription to [facility] Prescriptions: New methocarbamol 500 mg tablet 1,000 mg PO Q6H PRN (Reason: back pain/spasm) Qty: 14 RF: 0 hydrocodone-acetaminophen [Bent] 5-325 mg tablet 1 tab PO Q4-6H PRN (Reason: acute back pain) Qty: 8 RF: 0 No Action amlodipine [Norvasc] 5 MG tablet 5 mg PO DAILY Qty: 0 RF: 0 fluticasone propionate 50 mcg/actuation spray,suspension 2 spray NASAL DAILY PRN (Reason: Allergy Symptoms) RF: 0 celecoxib 100 mg capsule 100 mg PO BID RF: 0 loratadine 10 mg tablet 10 mg PO DAILY RF: 0 hydrocodone-acetaminophen [Bent] 5-325 mg tablet 1 tab PO Q6H PRN (Reason: pain) Qty: 10 RF: 0 escitalopram oxalate [Lexapro] 10 mg Tablet 10 mg PO DAILY RF: 0 naproxen 500 mg tablet 500 mg PO BID PRN (Reason: pain) Qty: 60 RF: 2 amitriptyline 10 mg tablet 10 mg PO BEDTIME Qty: 60 RF: 2 sumatriptan succinate 100 mg tablet 100 mg PO ONCE Qty: 10 RF: 2 Referrals: Leland Zamora MD [Primary Care Provider] -
[2019-06-17] MEDS: METHOCARBAMOL 500 MG TABLET 1000 MG PO (11:51)
[2019-06-17] MEDS: HYDROCODONE/ACET 5/325 TABLET 2 TAB PO (11:51)
[2019-06-17 11:55] VITALS: BP 152/80; PULSE 92; RESP 19; O2SAT 98
== END 2019-06-17 11:55 | disposition home or self-care (01) ==
PROVIDERS: Emergency Provider Internal Medicine; PCP Family Medicine
DX: M53.3 Sacrococcygeal disorders, not elsewhere classified (principal)
CPT/HCPCS: 99283

== ENCOUNTER → 2020-03-02 12:25 | Outpatient (CLI) | payer OTHER, SELFPAY ==
--- NOTE | 2020-03-02 | DI.MRI.S_ITS ---
PROCEDURE: MR SHOULDER LT WO CON INDICATIONS: LEFT SHOULDER PAIN TECHNIQUE: Noncontrast oblique coronal T2 fast spin echo with fat saturation, oblique sagittal T1 spin echo and T2 fast spin echo with fat saturation, axial T1 spin echo and T2 fast spin echo with fat saturation through the shoulder. COMPARISON: None. FINDINGS: Image quality: Excellent. Rotator cuff: There is moderate grade articular surface and bursal surface tearing of the posterior supraspinatus tendon at the humeral insertion site, with musculotendinous junction extension. There is a superimposed 2 mm diameter full-thickness pinhole tear within the posterior supraspinatus tendon at the humeral insertion site. Subscapularis tendon demonstrates mild T2 signal elevation within its substance at the humeral insertion site, indicating tendinopathy. Infraspinatus and teres minor tendons are intact. Bones and bursae: No bone marrow contusions or fractures. Mild acromioclavicular joint degeneration. The acromion demonstrates conventional anatomy, without an os acromiale. Small amount of subacromial-subdeltoid or subcoracoid bursal fluid is present. Capsule and soft tissues: Irregularity and high T2 signal intensity within the posterosuperior labrum is present. The long head of the biceps tendon demonstrates normal location and morphology. The rotator interval appears normal, without fibrosis. The coracohumeral ligament is normal in thickness. IMPRESSION: 1. Posterior supraspinatus tendon tearing as described above. 2. Subscapularis tendinopathy without tear. 3. Posterosuperior glenoid labral tear. 4. Acromioclavicular joint osteoarthritis. Dictated by: Catie Marie M.D. on 03/02/2020 at 16:26 Approved by: Catie Marie M.D. on 03/02/2020 at 16:29
== END ==
PROVIDERS: PCP Family Medicine; Referring Provider Family Medicine; Visit Provider Family Medicine
DX: M25.512 Pain in left shoulder (principal); M75.112 Incomplete rotator cuff tear or rupture of left shoulder, not specified as traumatic; S43.492A Other sprain of left shoulder joint, initial encounter; M19.012 Primary osteoarthritis, left shoulder
CPT/HCPCS: 73221

== ENCOUNTER 2020-06-17 06:11 | Day surgery (SDC) | payer OTHER, SELFPAY ==
[2020-06-16 14:51] VITALS: BMI 21.6
[2020-06-17] VITALS (8 sets, daily range): BP systolic 119–155; BP diastolic 62–85; PULSE 81–100; RESP 14–18; TEMP 36.2–36.8; O2SAT 96–98; BMI 21.2
[2020-06-17 07:06] LABS: COVID19 -Nasal RAPID Negative (Negative)
[2020-06-17] MEDS: LACTATED RINGERS 1,000 ML 42 ML IV ×2 (07:21→08:59)
[2020-06-17] MEDS: MIDAZOLAM 2 MG/2 ML VIAL IV (07:40)
--- NOTE | 2020-06-17 07:41 | P.HP_ITS ---
History of Present Illness History of Present Illness Date Patient Seen: 06/17/20 Time Patient Seen: 07:42 Chief complaint: LEFT SHOULDER Narrative: Patient with a left rotator cuff tear that has been unresponsive to conservative treatment. Patient History Medical History Chronic back pain Depression Fibromyalgia GERD (gastroesophageal reflux disease) Hypertension Osteoarthritis Surgical History S/P sinus surgery Status post foot surgery Status post Mary fundoplication Family & Social History Social History: household members spouse Tobacco & Substance use: Smoking Status Former smoker alcohol intake former alcohol intake frequency 0-2 drinks per day Substance Use Type does not use Meds Home Medications and Allergies Home Medications Medication Instructions Recorded Confirmed Type amlodipine [Norvasc] 5 mg PO DAILY #0 07/30/17 06/17/20 History escitalopram oxalate [Lexapro] 10 mg PO DAILY 11/07/17 06/17/20 History fluticasone propionate 2 spray NASAL DAILY PRN 06/06/18 06/16/20 History hydrocodone-acetaminophen [[place]] 1 tab PO Q6H PRN #10 tab 07/10/18 06/17/20 Rx loratadine 10 mg PO PRN PRN 07/10/18 06/17/20 History methocarbamol 1,000 mg PO Q6H PRN #14 tab 06/17/19 06/16/20 Rx duloxetine [Cymbalta] 20 mg PO BID 06/17/20 06/17/20 History omeprazole [Prilosec] 40 mg PO BID 06/17/20 06/17/20 History Allergies Allergy/AdvReac Type Severity Reaction Status Date / Time No Known Drug Allergies Allergy Verified 06/17/20 06:48 Review of Systems Review of Systems ROS: Yes All systems reviewed with the patient and are negative except as otherwise documented Exam Vital Signs (past 8 hours): - 06/17/20 07:12 Temperature 98.0 F Pulse Rate 81 Respiratory Rate 16 Blood Pressure 137/85 Pulse Oximetry 97 Oxygen Delivery Method Room Air Oxygen Flow Rate 0 Narrative Exam Narrative: Decreased range of motion to the left shoulder. Difficulty going beyond 90? of both forward flexion and abduction. Pain with range of motion. Positive impingement signs. Weakness and supraspinatus and infraspinatus strength testing. No sign of any instability. No sign of any proximal biceps pathology. Objective Labs Labs: Laboratory Results - last 24 hr 06/17/20 06:40 COVID-19 PCR Negative Assessment & Plan Assessment & Plan narrative: Patient with a left rotator cuff tear that has been unresponsive to conservative treatment. Due to this fact, patient is interested in surgery. COVID-19 COVID-19 status: Negative Result date/Date tested (Pos, Neg/Pending): 06/14/20 Time Spent With Patient Time with patient: less than 15 minutes
--- NOTE | 2020-06-17 07:43 | PM.PREOP ---
Pre-operative Note COVID-19 COVID-19 status: Negative Result date/Date tested (Pos, Neg/Pending): 06/14/20 Interval Note History & Physical reviewed/Exam performed by Physician: Yes Changes to H&P: No
--- NOTE | 2020-06-17 07:48 | SUR.PREOP ---
Block start time [0740] . Monitoring initiated and maintained throughout procedure. Oxygen and medications given per anesthesiologist instructions. Patient remained stable throughout procedure, no adverse reactions noted. Block end time [0745].
[2020-06-17] MEDS: CEFAZOLIN 2 GM/100 ML FROZ.PIGGY IV (07:49)
--- NOTE | 2020-06-17 08:22 | SUR.OPER ---
Beach chair with [place]quet shoulder positioner. Lower body on padded OR bed. Head in foam padded head cradle, secured with straps. Non-operative arm secured <90 degrees abduction. Pillow under knees. Safety belt at thigh. Cloth tape over blanket over lower legs.
[2020-06-17] MEDS: SODIUM CHLORIDE IRRIG SOLUTION 3,000 ML, EPINEPHrine 1 MG IRR (08:30)
[2020-06-17] MEDS: BUPIVACAINE 0.5% W/ EPI (PF) 30 ML VIAL INJ (08:30)
--- NOTE | 2020-06-17 08:43 | P.PCN_ITS ---
Procedures Date/Time Date of procedure: 06/17/20 Time of procedure: 07:40 Nerve Block Time out performed: Yes Local anesthetic used: other (15mL 0.5opivacaine, 5mL 2* idocaine) Location of anesthetic used: interscalene Amount of anesthesia used (mL): 20 Nerve blocks: brachial plexus (interscalene) Procedure successful: Yes Patient tolerated procedure: well Complications: none Additional comments: Brachial plexus nerve block for post operative pain management. Risks and benefits discussed, including bleeding, infection, intravascular injection, nerve damage, block failure. Standard ASA monitors, NC O2. Pt supine. Chloroprep site preparation, sterile technique. Brachial plexus identified with US guidance, traced from supraclavicular to interscalene. 1mL 2% lidocaine skin wheal. 22g x 50mm [place] advanced with in-plane US guidance to brachial plexus. Negative aspiration. LA injected with intermittent negative aspiration. Good LA spread noted on US. No pain, no paraesthesia. Pt tolerated procedure well. Vital signs stable.
--- NOTE | 2020-06-17 09:09 | PM.OP.1 ---
Operative Date/Time/Diagnoses Date of procedure: 06/17/20 Time of procedure: 08:00 Pre-op diagnosis: Left shoulder impingement with partial rotator cuff tear Post-op diagnosis: same Procedure & Clinicians Procedure: Left shoulder arthroscopic extensive debridement with subacromial decompression as well as debridement of partial rotator cuff tear and removal of loose bodies. CPT 95629, 62953, 32108 Same procedure as scheduled: Yes (With the addition of removal of loose bodies) Indications: Left shoulder rotator cuff tear with subacromial impingement Surgeon: Diego Schmid Director Of Rehabilitative Services: Angeline Whitfield Anesthesia Type: General and Peripheral nerve block Operative Notes Findings: Full-thickness cartilage loss of the center of the humeral head. Loose flaps of cartilage in the glenohumeral joint. As well as some partially attached loose flaps of cartilage still attached to the humeral head. Glenoid relatively free of any significant cartilage loss. Some degenerative changes throughout the labrum. Minimal partial tearing to the articular surface of the rotator cuff. Mild partial tearing to the bursal side of the rotator cuff as well. No sign of any high-grade or full-thickness tears. Impingement lesion in the acromial arch as well as some mild AC joint arthritis. No sign of any significant tearing or synovitis to the proximal biceps. Closure Type: primary Specimen(s): none sent Estimated Blood Loss (mL): 5 Blood products transfused: none Procedure in detail: On date of service, Patient was met in the holding area. The operative site was signed and witnessed by the OR staff. The surgeries once again discussed with the patient and any remaining questions they had were answered fully. Patient was taken back to the operating theater and placed on the operating table in a supine position. Great care was taken to ensure that all bony prominences were properly padded. Patient was then placed into the beach chair position. The head and neck were properly positioned and secured. A timeout was performed verifying patient's name, procedure, and the operative site. The upper extremity was then prepped and draped in the normal sterile fashion. Previously, the bony anatomy and portal sites were marked out as well as injected with Marcaine with epinephrine. An 11 blade was used to make an incision in the posterior aspect of the shoulder. The camera was placed, and a diagnostic shoulder scope was performed. Findings listed above. Next under direct visualization, a anterior portal was made. A arthroscopic grasper was brought in and the loose bodies were removed. Next the shaver was brought in and a debridement of the loose flaps of cartilage at the humeral head were debrided in the area of full-thickness loss was debrided down to bleeding bone to encourage healing. Shaver was also used to debride the degenerative changes of the labrum some of the synovitis and the glenohumeral joint. Next the camera was placed into the subacromial space. A lateral portal was obtained under direct visualization. A combination of the shaver and vapor wand, a debridement of the inflamed tissue as well as inflamed bursa was performed. The lateral gutter was also cleaned out. This gave us good visualization of the bursal aspect of the rotator cuff as well as the acromial arch. There was an obvious impingement lesion in the acromial arch. Next we turned our attention to the subacromial decompression. Next, a mechanical rasp was then used to do a subacromial decompression. This allowed us to convert the acromion to a type I acromial. This also allowed us to shave down the bony lesion in the acromial space. The rasp was placed into the lateral portal as well as the anterior portal in order to do a complete subacromial decompression. We next turned our attention to the distal clavicle. Using the shaver in the vapor wand we were able to clean out all the soft tissue around the distal clavicle as well as into the a.c. joint. This gave us good visualization of the arthritic changes to the distal clavicle. Using the bur in the anterior portal, we were able to remove the inferior osteophytes. We then turned our attention to the rotator cuff tear. There was no signs of any full-thickness or high-grade partial bursal sided tears. Shaver was used to debride some of the mild partial tearing to the Bursal side of the rotator cuff back down to more healthy rotator cuff tissue. The shoulder was then taken through range of motion and there was no sign of any additional impingement. Next, the suprascapular nerve was blocked. Patient's shoulder was then cleaned dried and dressed and patient was taken to the PACU in stable condition. Complications: none Post-operative Condition: stable Disposition: PACU Plan for aftercare: Sling will just be for comfort. Patient can come out of the sling to engage in range of motion exercises sometime in the next 24-48 hours.
== END 2020-06-17 09:50 | disposition home or self-care (01) ==
PROVIDERS: PCP Family Medicine; Referring Provider Family Medicine; Visit Provider Orthopaedic Surgery
PROC: (CPT 29827; principal; 2020-06-17 07:45)
DX: S46.012A Strain of muscle(s) and tendon(s) of the rotator cuff of left shoulder, initial encounter (principal); M75.42 Impingement syndrome of left shoulder; M79.7 Fibromyalgia; F32.9 Major depressive disorder, single episode, unspecified; K21.9 Gastro-esophageal reflux disease without esophagitis; M54.9 Dorsalgia, unspecified; G89.29 Other chronic pain; Z01.812 Encounter for preprocedural laboratory examination; Z20.828 Contact with and (suspected) exposure to other viral communicable diseases
CPT/HCPCS: 29823; 29826; 64450; 87635; J0171; J0690; J1100; J2250; J2405; J2704; J3010

== ENCOUNTER 2021-07-02 18:49 | Observation (INO) | payer OTHER, SELFPAY ==
[2021-07-02 19:20] VITALS: BP 125/74; PULSE 115; RESP 20; TEMP 37.5; O2SAT 97; BMI 19.8
--- NOTE | 2021-07-02 19:30 | DI.RAD.S_ITS ---
PROCEDURE: XR HIP W PEL IF DONE LT 2V INDICATIONS: slipped on ice, swelling, limited movement/weight bearing TECHNIQUE: AP pelvis with lateral view(s) of the left hip(s). COMPARISON: None. FINDINGS: Bones: No fractures or dislocations. Pelvic ring appears intact. No suspicious bony lesions. Soft tissues: The visualized bowel gas pattern is normal. No suspicious soft tissue calcifications. IMPRESSION: No visualized acute fracture or dislocation. However, if clinical concern and/or pain persist, short interval imaging followup in 7-10 days is recommended, as occult injury cannot be definitively excluded. Dictated by: Janet Hutchinson M.D. on 07/02/2021 at 20:15 Approved by: Janet Hutchinson M.D. on 07/02/2021 at 20:16
[2021-07-02 19:53] VITALS: PULSE 98; RESP 16; O2SAT 96
--- NOTE | 2021-07-02 20:09 | DI.CT.S_ITS ---
PROCEDURE: CT PEL WO CON INDICATIONS: left hip pain, fall, large hematoma TECHNIQUE: Noncontrast 3 mm axial sections acquired through the bony pelvis, with coronal and sagittal reformatting. COMPARISON: [facility], CR, XR HIP W PEL IF DONE LT 2V, 07/02/2021, 19:28. FINDINGS: Image quality: Excellent. Bones: No definitive area of fracture or dislocation is identified. Soft tissues: Prominent focal area of soft tissue attenuation within the subcutaneous fat adjacent to the lateral left hip, Hounsfield units measuring approximately 45. Visualized portions of the intra-abdominal and pelvic contents are unremarkable. IMPRESSION: 1. Prominent contusion and hematoma within the subcutaneous fat adjacent to the left lateral hip. No visualized hip fracture is identified. If concern persists, further evaluation with MRI is recommended for occult injury not visible on CT exam. Dictated by: Janet Hutchinson M.D. on 07/02/2021 at 20:55 Approved by: Janet Hutchinson M.D. on 07/02/2021 at 21:01
--- NOTE | 2021-07-02 20:10 | ED_ITS ---
HPI - Extremity Injury (Lower) General Chief Complaint: Extremity Injury, Lower Stated Complaint: FELL ON ICE/KNOT ON HIP/PAIN Time Seen by Provider: 07/02/21 20:09 Source: patient Mode of arrival: Wheelchair Limitations: no limitations History of Present Illness HPI Narrative: This is a 60-year-old female who comes emergency department after a slip and fall directly on her left hip with all her weight. Patient states that about 10:30 in the morning. She has significant pain in hip. She has a very large hematoma on her left lateral hip. Patient states any sort of movement is very painful. It is painful her to try to weight bear. She denies any numbness or tingling except the adjacent area. She denies hitting her head, no neck or back pain. No numbness, tingling or weakness elsewhere. She denies any other injuries. She denies any blood thinners. No aspirin, Plavix or other anticoagulants. She states she takes antidepressants but denies any other daily medications besides a PPI. Related Data Home Medications Medication Instructions Recorded Confirmed escitalopram oxalate 10 mg tablet 10 mg PO DAILY 11/07/17 07/02/21 (Lexapro) fluticasone propionate 50 2 spray NASAL DAILY PRN 06/06/18 07/02/21 mcg/actuation nasal spray,suspension loratadine 10 mg tablet 10 mg PO PRN PRN 07/10/18 07/02/21 duloxetine 20 mg capsule,delayed 20 mg PO DAILY 06/17/20 07/02/21 release (Cymbalta) Allergies Allergy/AdvReac Type Severity Reaction Status Date / Time No Known Drug Allergies Allergy Verified 06/17/20 06:48 Review of Systems Review of Systems ROS Unobtainable: All systems reviewed & are unremarkable except as noted in HPI and below Patient History Medical History Chronic back pain Depression Fibromyalgia GERD (gastroesophageal reflux disease) Hypertension Osteoarthritis Surgical History S/P sinus surgery Status post foot surgery Status post Mary fundoplication Family History (Updated 07/03/21 @ 01:36 by YASSINE Wayne) Father Lung cancer Mother Emphysema lung Social History (Updated 07/03/21 @ 01:38 by Peg Booker, LOGISTICS CLERK) marital status: household members: spouse Smoking Status: Former smoker alcohol intake: former additional social history: [employer], does not except whole blood transfusions Smoking Status: Former smoker alcohol intake frequency: 0-2 drinks per day Substance Use Type: does not use Exam Narrative Exam Narrative: GEN: Patient appears in mild distress. HEAD: No evidence of trauma, no raccoon/Kang sign. NECK: Nontender, painless range of motion, trachea midline Negative Nexus criteria, there is no midline line tenderness, distracting injury, altered mental status, neuro deficit, recent EtOH. EYES: PERRLA, EOMI ENT: External inspection normal, trachea is midline. RESP: Chest is nontender and has symmetric movement, no ecchymosis, breath s ounds are normal no crackles, wheezes or rales CVS: Heart sounds are normal, no murmur noted, No JVD. ABG/GI: Nontender, soft, normal bowel sounds, no distention, no organomegaly, pelvic rock is negative. NEURO: Oriented AOx3, neuro is grossly intact, sensation and motor is normal all 4 extremities moving, cranial nerves II through XII are intact, GCS is 15 PSYCH: Normal mood and affect SKIN: Intact, warm and dry, no crepitus and without decubitus. Patient does have ecchymosis of the left hip with a large hematoma noted below. BACK: No CVA tenderness, no vertebral tenderness, no step-off's, no crepitus EXT: Patient has a large hematoma of the left hip. There is ecchymosis overlying the area. She is tender over the site. She does not have significant bony tenderness of the femur otherwise, the pelvis or the ischium. Her left lower extremity is nontender, no pedal edema, normal color and temperature, normal range of motion of extremities with normal tendon exam, 2+ pulses in all four extremities Initial Vital Signs Initial Vital Signs: Vital Signs Temperature 99.5 F 07/02/21 19:20 Pulse Rate 115 H 07/02/21 19:20 Respiratory Rate 20 07/02/21 19:20 Blood Pressure 125/74 07/02/21 19:20 Pulse Oximetry 97 07/02/21 19:20 Scores GCS [place] coma scale eye opening: Spontaneous John coma scale verbal response: Orientated John coma scale motor response: Obey commands [place] coma scale total score: 15 Course Orders Ordered: ED Orders 07/02/21 19:30 XR hip w pel if done LT 2V Stat 07/02/21 20:00 BMP [Basic Metabolic Panel] Stat CBC Auto Diff [Complete Blood Count AUTO DIFF] Stat 07/02/21 20:09 CT pelvis wo con Stat 07/02/21 21:36 Consult to Orthopedic Surgery Stat 07/02/21 21:44 COVID19 - ADMIT (MEDICAL CENTER MANAGER swab/PCR) Stat Acetaminophen (Acetaminophen 325 Mg Tablet) 650 mg PO Q6HR PRN PRN Reason: Fever/Mild Pain (1-3) Docusate Sodium (Docusate 100 Mg Capsule) 100 mg PO BID JESE Sodium Chloride (Normal Saline 0.9%) 1,000 mls @ 100 mls/hr IV CONT JESE Last Admin: 07/02/21 22:35 Dose: 100 mls/hr Documented by: VIRGINIE Influenza Virus Vaccine (Influenza Vaccine Qiv 0.5 Ml Syringe) 0.5 ml IM .ONCE ONE Stop: 07/03/21 08:01 Ketorolac Tromethamine (Ketorolac 30 Mg/Ml Vial) 30 mg IV Q6HR PRN PRN Reason: Pain, Moderate (4-6) Stop: 07/07/21 22:12 Morphine Sulfate (Morphine 2 Mg/Ml Inj) 2 mg IV Q3H PRN PRN Reason: Pain, Severe (7-10) Last Admin: 07/03/21 01:37 Dose: 2 mg Documented by: NORBERT Naloxone HCl (Naloxone 0.4 Mg/Ml Vial) 0.2 mg IV Q2MIN PRN PRN Reason: Opiate Reversal Ondansetron HCl (Ondansetron 4 Mg/2 Ml Inj) 4 mg IV Q8HR PRN PRN Reason: Nausea And Vomiting Discontinued Medications Morphine Sulfate (Morphine 2 Mg/Ml Inj) 2 mg IV Q2HR PRN PRN Reason: Pain, Moderate (4-6) Last Admin: 07/02/21 20:17 Dose: 2 mg Documented by: PRIETO Morphine Sulfate (Morphine 4 Mg/Ml Inj) 4 mg IV NOW ONE Stop: 07/02/21 21:30 Last Admin: 07/02/21 21:34 Dose: 4 mg Documented by: PRIETO Ondansetron HCl (Ondansetron 4 Mg/2 Ml Inj) 4 mg IV NOW ONE Stop: 07/02/21 20:10 Last Admin: 07/02/21 20:17 Dose: 4 mg Documented by: PRIETO Consultations Consultation #1: Dr. Benitez with orthopedic surgery. Images reviewed. Patient was seen here in the department. CT imaging was obtained as patient is quite a large hematoma w ith significant pain over the site and suspect occult fracture. Dr. Benitez reviewed CT images herself suspect there may be a small crack in the hip. The radiology read was negative but Dr. Benitez would like to keep the patient for possibly MRI tomorrow and potentially surgical treatment. She does request that patient be admitted to the hospitalist service. Consultation #2: MEDICAL CENTER MANAGER Mary Booker, hospitalist service accepts for admission. Aware of recomme ndation from Orthopedic surgery to obtain MRI as they do suspect there is a crack and hip based on their own review of CT imaging. Vital Signs Vital signs: Vital Signs - 8 hr 07/02/21 19:53 Pulse Rate 98 H Respiratory Rate 16 Pulse Oximetry 96 MDM - Extremity Injury (Lower) Lab Data Result diagrams: 07/02/21 20:00 07/02/21 20:00 Labs: Lab Results 07/02/21 07/02/21 07/02/21 Range/Units 20:00 20:00 21:44 WBC 11.1 H (4.5-11.0) X10^3/uL RBC 4.50 (4.0-5.2) X10^6/uL Hgb 13.4 (12.0-16.0) g/dL Hct 39.5 (36-46) % MCV 87.9 (80-100) fL MCH 29.8 (26-34) PG MCHC 33.9 (30-36) % RDW 13.2 (11.6-14.8) % Plt Count 284 (150-400) X10^3/uL Neut % (Auto) 82.0 H (50-75) % Lymph % (Auto) 10.7 L (25-40) % [place] % (Auto) 6.7 (3-14) % Eos % (Auto) 0.2 L (2-4) % Baso % (Auto) 0.4 (0-2) % Neut # (Auto) 9100 H (2887-8748) /uL Lymph # (Auto) 1200 (2332-4388) /uL [place] # (Auto) 700 (0-900) /uL Eos # (Auto) 0 (0-450) /uL Baso # (Auto) 0 (0-100) /uL Sodium 141 (137-145) mmol/L Potassium 3.6 (3.4-5.1) mmol/L Chloride 106 (98-107) mmol/L Carbon Dioxide 28 (22-32) mmol/L BUN 13 (7-17) mg/dL Creatinine 0.78 (0.52-1.04) mg/dL Estimated GFR > 60.0 (>60) mL/min BUN/Creatinine Ratio 16.7 (6-22) Glucose 111 H (80-110) mg/dL Calcium 9.5 (8.4-10.2) mg/dL SARS-CoV-2 (PCR) Negative (Negative) Imaging Data Extremity x-ray #1: Radiologist's Impression: Launch?[address] [address] XRay Report Signed Patient: Alcon Suarez MR#: [id number] : 1960 Acct:[id number] Age/Sex: 60 / F Date of Service: 07/02/21 Loc: ED Accession Number: [id number] ?? Procedure: XR hip w pel if done LT 2V Ordering Provider: Shira Sheppard D.O. PROCEDURE:? XR HIP W PEL IF DONE LT 2V ? INDICATIONS:? slipped on ice, swelling, limited movement/weight bearing ? TECHNIQUE:? AP pelvis with lateral view(s) of the left hip(s).? ? COMPARISON:? None. ? FINDINGS:? ? Bones:? No fractures or dislocations.? Pelvic ring appears intact.? No suspicious bony lesions.? ? Soft tissues:? The visualized bowel gas pattern is normal.? No suspicious soft tissue calcifications.? ? ? IMPRESSION:? No visualized acute fracture or dislocation. However, if clinical concern and/or pain persist, short interval imaging followup in 7-10 days is recommended, as occult injury cannot be definitively excluded. ? ? Dictated by: Janet Hutchinson M.D. on 07/02/2021 at 20:15 ? ? Approved by: Janet Hutchinson M.D. on 07/02/2021 at 20:16?? MDM Narrative Medical decision making narrative: This is a 60-year-old female who had a slip and fall on ice landing directly on her left hip with a significantly large hematoma of the left hip. Initial x-ray was negative but based on patient's exam findings CT pelvis/hip was obtained. Radiology read is negative but Dr. Benitez directly viewed the images herself and saw the patient here in the department of suspects that she has an occult fracture and recommends MRI in the morning and admission Medicine for suspected closed hip fracture and hematoma of the left hip. Discharge Plan Departure Patient Disposition: Admitted As Inpatient Clinical Impression: Closed hip fracture, Hematoma of left hip Admit Date/Time: 07/02/21 21:52 Admit Provider: Peg Booker
[2021-07-02 20:16] LABS: Add Manual Diff / Slide Review NO; Basophils Absolute Auto 0 /uL (0-100); Basophils Percent Auto 0.4 % (0-2); Eosinophils Absolute Auto 0 /uL (0-450); Eosinophils Percent Auto 0.2 % (2-4); Hematocrit 39.5 % (36-46); Hemoglobin 13.4 g/dL (12.0-16.0); Lymphocytes Absolute Auto 1200 /uL (1100-4500); Lymphocytes Percent Auto 10.7 % (25-40); Mean Corpuscular HGB Conc 33.9 % (30-36); Mean Corpuscular Hemoglobin 29.8 PG (26-34); Mean Corpuscular Volume 87.9 fL (80-100); Monocytes Absolute Auto 700 /uL (0-900); Monocytes Percent Auto 6.7 % (3-14); Neutrophils Absolute Auto 9100 /uL (1500-7000); Platelet Count 284 X10^3/uL (150-400); Red Cell Distribution Width 13.2 % (11.6-14.8); White Blood Cell Count 11.1 X10^3/uL (4.5-11.0)
[2021-07-02] MEDS: ONDANSETRON 4 MG/2 ML INJ IV (20:17)
[2021-07-02] MEDS: MORPHINE 2 MG/ML INJ IV (20:17)
[2021-07-02 20:24] LABS: BUN Creatinine Ratio 16.7 (6-22); Blood Urea Nitrogen 13 mg/dL (7-17); Calcium 9.5 mg/dL (8.4-10.2); Carbon Dioxide 28 mmol/L (22-32); Chloride 106 mmol/L (98-107); Estimated Glomerular Filt Rate > 60.0 mL/min (>60); Glucose 111 mg/dL (80-110); HEMOLYSIS < 15 (0-50); Potassium 3.6 mmol/L (3.4-5.1); Sodium 141 mmol/L (137-145)
[2021-07-02] MEDS: MORPHINE 4 MG/ML INJ IV (21:34)
--- NOTE | 2021-07-02 22:11 | DI.MRI.S_ITS ---
PROCEDURE: MR HIP LT WO CON INDICATIONS: fall on ice, possible left hip fx TECHNIQUE: Noncontrast coronal T1 spin echo and STIR through the bony pelvis. Coronal and axial T2 fast spin echo with fat saturation, sagittal T1 spin echo, and oblique axial T2 fast spin echo with fat saturation through the hip. COMPARISON: [facility], CT, CT PEL WO CON, 07/02/2021, 20:24. [facility], CR, XR HIP W PEL IF DONE LT 2V, 07/02/2021, 19:28. FINDINGS: Image quality: Excellent. In this patient with this given history, scrutiny is given to bone marrow edema to suggest contusion or fracture. No bone marrow edema is seen, including on stir images. Mild generalized degenerative changes are seen. Along the lateral aspect of the left hip, there is generalized soft tissue swelling seen within the subcutaneous fat. There is a 5.6 cm fluid collection seen laterally overlying the left greater trochanter, which is attributed to hematoma. No significant bladder abnormality is seen. The uterus appears normal for age. No adnexal masses are seen. No enlarged lymph nodes are seen. No dilated loops of small bowel are seen. No significant free pelvic fluid can be seen. IMPRESSION: Negative for fracture. No bone marrow edema is seen to suggest bone contusion. Subcutaneous fluid and hematoma can be seen, which is attributed to posttraumatic bruising. Dictated by: Kush Jackson M.D. on 07/03/2021 at 7:58 Approved by: Kush Jackson M.D. on 07/03/2021 at 8:03
[2021-07-02 22:23] VITALS: BMI 19.8
[2021-07-02 22:33] VITALS: BP 131/62; PULSE 87; RESP 23; TEMP 37.3; O2SAT 98
[2021-07-02] MEDS: SODIUM CHLORIDE 0.9% 1,000 ML 100 ML IV (22:35)
[2021-07-02 22:41] LABS: COVID19 - ADMIT (NP swab/PCR) Negative (Negative)
--- NOTE | 2021-07-02 23:51 | PM.HP.1 ---
History of Present Illness History of Present Illness Date Patient Seen: 07/02/21 Time Patient Seen: 23:45 Chief complaint: FELL ON ICE/KNOT ON HIP/PAIN Narrative: Alcon Suarez is 60-year-old female with very limited medical history slipped and fell on the ice, has a suspected left hip fracture and a very large hematoma on her left hip. She and her live in an RV and she was stepping off the RV when she fell. She denies hitting her head or losing consciousness. She was just unable to bear weight on the left leg. She denies any dizziness, headache, numbing or tingling of the upper or lower extremities, dyspnea, nausea vomiting, dysuria, diarrhea or constipation. In the emergency department they did both an x-ray an a CT scan of her left hip both of which were negative for fracture. They consulted with Orthopedic surgery and the orthopedic surgeon is concerned that she may have a hip fracture and recommended that the patient be kept overnight, undergo MRI imaging tomorrow and if she does have a fracture she will do the surgical repair tomorrow. Temp is mildly febrile 99.1, blood pressure 131/62, heart rate 87, respiratory rate 23, oxygen saturation of 90% on room air she weighs 58.9 kg with a BMI of 19.8. She does have mildly elevated white count of 11.1 likely inflammatory, platelet count is 284, chemistries are unremarkable except for glucose which is mildly elevated at 111, and COVID PCR is negative. Patient History Medical History Chronic back pain Depression Fibromyalgia GERD (gastroesophageal reflux disease) Hypertension Osteoarthritis Surgical History S/P sinus surgery Status post foot surgery Status post Mary fundoplication Family & Social History Family History (Updated 07/03/21 @ 01:36 by YASSINE Wayne) Father Lung cancer Mother Emphysema lung Social History: household members spouse Prior Living Arrangements Safety & Behavioral: Feels Safe in Current Yes Environment Been Physically Hurt or No Threatened By a Person Suicidal Ideation Description None Suicide Plan Description No Plan Tobacco & Substance use: Smoking Status Former smoker alcohol intake former alcohol intake frequency 0-2 drinks per day Substance Use Type does not use Comment: Anabaptism, does not accept whole blood transfusions. Meds Home Medications and Allergies Home Medications Medication Instructions Recorded Confirmed Type escitalopram oxalate 10 mg tablet 10 mg PO DAILY 11/07/17 07/02/21 History (Lexapro) fluticasone propionate 50 2 spray NASAL DAILY PRN 06/06/18 07/02/21 History mcg/actuation nasal spray,suspension loratadine 10 mg tablet 10 mg PO PRN PRN 07/10/18 07/02/21 History duloxetine 20 mg capsule,delayed 20 mg PO DAILY 06/17/20 07/02/21 History release (Cymbalta) Allergies Allergy/AdvReac Type Severity Reaction Status Date / Time No Known Drug Allergies Allergy Verified 06/17/20 06:48 Review of Systems Review of Systems ROS: Yes All systems reviewed with the patient and are negative except as otherwise documented Exam Vital Signs (past 8 hours): - 07/02/21 19:20 07/02/21 19:53 07/02/21 22:33 Temperature 99.5 F 99.1 F Pulse Rate 115 H 98 H 87 Respiratory Rate 20 16 23 Blood Pressure 125/74 131/62 Pulse Oximetry 97 96 98 Oxygen Delivery Method Room Air Narrative Exam Narrative: Gen: Alert, oriented, well-developed 60 y.o. female, NAD HEENT: normocephalic, atraumatic, conjunctiva clear, sclera non-icteric, oral mucosa pink and moist Neck: supple, full ROM, no JVD, trachea is midline Resp: Lungs CTA, non-labored breathing CV: RRR, no murmur or rubs Abd: soft, non-tender, normoactive BTs Skin: no lesions or rashes, dry and intact Neuro: Alert and oriented X 4 w/no focal deficits. Speech clear and coherent. Extremities: large melon sized hematoma on left hip, retracted, is normally ambulatory, negative Ty's sign Psyche: normal mood and affect. Objective Labs Result Diagrams: 07/02/21 20:00 07/02/21 20:00 Labs: Laboratory Results - last 24 hr 07/02/21 07/02/21 07/02/21 20:00 20:00 21:44 WBC 11.1 H RBC 4.50 Hgb 13.4 Hct 39.5 MCV 87.9 MCH 29.8 MCHC 33.9 RDW 13.2 Plt Count 284 Neut % (Auto) 82.0 H Lymph % (Auto) 10.7 L [place] % (Auto) 6.7 Eos % (Auto) 0.2 L Baso % (Auto) 0.4 Neut # (Auto) 9100 H Lymph # (Auto) 1200 [place] # (Auto) 700 Eos # (Auto) 0 Baso # (Auto) 0 Sodium 141 Potassium 3.6 Chloride 106 Carbon Dioxide 28 BUN 13 Creatinine 0.78 Estimated GFR > 60.0 BUN/Creatinine Ratio 16.7 Glucose 111 H Calcium 9.5 SARS-CoV-2 (PCR) Negative Assessment & Plan Assessment & Plan narrative: 1. Suspected left hip fracture, acute MRI in am to confirm NPO past midnight Dr. Benitez consulting 2. Depression VTE Prophylaxis: Wells risk score 1.5 Bilateral SCDs Patient is admitted to the inpatient service due to the severity of disease, risks of further disease progression and this stay is expected to exceed 2 midnights. FEN: IV fluids: NS at 100 ml/hour, diet: NPO past midnight, labs: CBC, C/BMP, liver enzymes, Mag, PT/INR Consultants Dr. Patricia Benitez care and involvement in the patient?s care is appreciated. Dispo: Probable eventual dicharge to home w/HHPT Code status: Full code as discussed with the patient who identifies her Ernst as her surrogate and POA. [X] I have utilized all available immediate resources to obtain, update, or review of the patient's current medications COVID-19 COVID-19 status: Negative Result date/Date tested (Pos, Neg/Pending): 07/02/21 Time Spent With Patient Critical Care time: I spent a total of [] minutes of critical care time on this patient's care today; this time is exclusive of procedural time. Scores Wells' Criteria for PE Clinical signs and symptoms of DVT: No PE is #1 Dx or equally likely: No Heart rate > 100: No Immobilization at least 3 days or surg in previous 4 weeks: No History of PE or DVT: No Hemoptysis: No Malignancy w/Treatment within 6 months or palliative: No Wells' PE Score total: 0 Quality VTE Deep Vein Thrombosis/Pulmonary Embolism Present on Admission: No MIPS - Admit I confirm the patient?s Advance Care Plan is present, Code status is documented, Surrogate decision maker is in patient?s record [If Yes, STOP here]: Yes MIPS - DC The patient has current or prior documentation of left ventricular ejection fraction (LVEF) less than 40%, or moderate or severely depressed left ventricular systolic function.: No
[2021-07-03] MEDS: MORPHINE 2 MG/ML INJ IV ×4 (01:37→09:36)
[2021-07-03 04:00] VITALS: BP 125/77; PULSE 80; RESP 20; TEMP 36.9; O2SAT 98
[2021-07-03] MEDS: KETOROLAC 30 MG/ML VIAL IV (04:50)
--- NOTE | 2021-07-03 06:58 | PC.NURSE ---
Admit Note- Patient arrived to room via stretcher at 2210. Patient alert and oriented and able to make needs known to staff. admit questions done, medications reviewed, physical assessment done, and skin check completed. Patient oriented to bed and bed controls, room, lights, phone, bathroom, menu, and call cabello/tv remote. PRN IV morphine given for complaints of pain. Patient tolerated with no s/s of ase noted. Patient agrees to call for assistance. Bed alarm activated. Call cabello and phone within reach. Will continue to monitor.
[2021-07-03 07:25] VITALS: BP 139/64; PULSE 91; RESP 17; TEMP 35.3; O2SAT 98
[2021-07-03] MEDS: ONDANSETRON 4 MG/2 ML INJ IV (07:42)
[2021-07-03] MEDS: SODIUM CHLORIDE 0.9% FLUSH 10 ML IV (07:43)
[2021-07-03] MEDS: SODIUM CHLORIDE 0.9% 1,000 ML 100 ML IV (07:43)
--- NOTE | 2021-07-03 10:18 | PM.HP.1 ---
History of Present Illness History of Present Illness Date Patient Seen: 07/03/21 Time Patient Seen: 10:00 Date of Onset of Symptoms: 07/02/21 Chief complaint: FELL ON ICE/KNOT ON HIP/PAIN Narrative: This is a pleasant 60-year-old female who fell on the ice and noted the acute onset of severe left hip pain. She printed presented to [facility] with severe pain and difficulty putting weight on the left hip. Her plain x-rays showed some abnormality along the femoral neck and a CT scan was non the new not stick that did show an abnormality along the femoral neck. She was admitted to [facility] with a presumptive diagnosis of left femoral neck fracture with a plan to get an MRI scan for definitive diagnosis. Her MRI scan was done this morning it shows a severe contusion of the left hip and some cystic changes along the femoral head neck junction but no evidence of a definitive fracture. Patient History Medical History Chronic back pain Depression Fibromyalgia GERD (gastroesophageal reflux disease) Hypertension Osteoarthritis Surgical History S/P sinus surgery Status post foot surgery Status post Mary fundoplication Family & Social History Family History Father Lung cancer Mother Emphysema lung Social History: household members spouse Prior Living Arrangements RV Safety & Behavioral: Feels Safe in Current Yes Environment Been Physically Hurt or No Threatened By a Person Suicidal Ideation Description None Suicide Plan Description No Plan Tobacco & Substance use: Smoking Status Former smoker alcohol intake former alcohol intake frequency 0-2 drinks per day Substance Use Type does not use Meds Home Medications and Allergies Home Medications Medication Instructions Recorded Confirmed Type escitalopram oxalate 10 mg tablet 10 mg PO DAILY 11/07/17 07/02/21 History (Lexapro) fluticasone propionate 50 2 spray NASAL DAILY PRN 06/06/18 07/02/21 History mcg/actuation nasal spray,suspension loratadine 10 mg tablet 10 mg PO PRN PRN 07/10/18 07/02/21 History duloxetine 20 mg capsule,delayed 20 mg PO DAILY 06/17/20 07/02/21 History release (Cymbalta) hydrocodone 5 mg-acetaminophen 325 1 tab PO Q4HR PRN #30 tab 07/03/21 Rx mg tablet Allergies Allergy/AdvReac Type Severity Reaction Status Date / Time No Known Drug Allergies Allergy Verified 06/17/20 06:48 Review of Systems Review of Systems Narrative: She is normally physically active she am walks on a regular basis she denies being short of breath or lightheaded prior to the fall. Exam Vital Signs (past 8 hours): - 07/03/21 04:00 07/03/21 07:25 Temperature 98.4 F 95.5 F L Pulse Rate 80 91 H Respiratory Rate 20 17 Blood Pressure 125/77 139/64 Pulse Oximetry 98 98 Oxygen Delivery Method Room Air Oxygen Flow Rate 0 Narrative Exam Narrative: HEENT is benign lungs are clear cor regular rate and rhythm abdomen soft and benign. She has a large swelling over the left hip she has some pain with internal and external rotation of her left hip but there is no obvious crepitation her pelvis is stable her leg lengths are equal she is neurologically intact distally there is pain and apprehension with attempted hip abduction weakness of her hip abductors. Calfs are soft and benign bilaterally. Objective Labs Result Diagrams: 07/02/21 20:00 07/02/21 20:00 Labs: Laboratory Results - last 24 hr 07/02/21 07/02/21 07/02/21 20:00 20:00 21:44 WBC 11.1 H RBC 4.50 Hgb 13.4 Hct 39.5 MCV 87.9 MCH 29.8 MCHC 33.9 RDW 13.2 Plt Count 284 Neut % (Auto) 82.0 H Lymph % (Auto) 10.7 L [place] % (Auto) 6.7 Eos % (Auto) 0.2 L Baso % (Auto) 0.4 Neut # (Auto) 9100 H Lymph # (Auto) 1200 [place] # (Auto) 700 Eos # (Auto) 0 Baso # (Auto) 0 Sodium 141 Potassium 3.6 Chloride 106 Carbon Dioxide 28 BUN 13 Creatinine 0.78 Estimated GFR > 60.0 BUN/Creatinine Ratio 16.7 Glucose 111 H Calcium 9.5 SARS-CoV-2 (PCR) Negative plain x-ray shows a small sclerotic line along the femoral neck at the junction of the femoral neck and head she has no significant arthritic change acceptable alignment CT scan shows cortical abnormality at the femoral head neck junction without evidence of definitive fracture and soft tissue swelling along the hip abductors MRI scan shows massive swelling and contusion along the hip abductors and over the greater trochanteric region there are several small cystic lesions along the femoral head at the head neck junction but no evidence of a definitive fracture. Assessment & Plan Assessment and plan (1) Hematoma of left hip: Status: Acute (2) Chronic back pain: Status: Chronic (3) Muscle spasm: Status: Acute Plan I reassured her that I do not see a definitive fracture. She can be mobilized with physical therapy she may be weight-bearing as tolerated that is on the left lower extremity. Anticipate discharge to home today. She will follow-up with me in 10 days or so for repeat x-rays. We discussed using ice and mild pain medications for pain control and low-dose aspirin to prevent a DVT. We will Work on helping her get a walker. Time Spent With Patient Critical Care time: I spent a total of [] minutes of critical care time on this patient's care today; this time is exclusive of procedural time. Quality VTE Deep Vein Thrombosis/Pulmonary Embolism Present on Admission: No
[2021-07-03] MEDS: HYDROCODONE/ACET 5/325 TABLET 1 TAB PO ×2 (10:25→13:52)
[2021-07-03 12:20] VITALS: BP 141/73; PULSE 78; RESP 19; TEMP 36.3; O2SAT 97
--- NOTE | 2021-07-03 12:55 | CM.IDA ---
Initial DCP Assessment Note Pt is a 60 yo female, lives w/spouse in their RV , arrives after a slip on the ice getting out of her RV, w/subsequent hematoma of the left hip, no fx identified. PCP: Ranjana Cadena Payer: Juan Go Reviewed chart, met w/patient to introduce role. Patient is active and indp. at her baseline and plans to DC w/her to assist as needed. patient has been cleared from a medical standpoint and now awaiting PT eval to clear for return home w/spouse, possible need for FWW Patient denies need for HH, denies needs from CM team Plan: DC anticipated today; home w/spouse CONSTANTINE Wilder
--- NOTE | 2021-07-03 13:20 | PT.IIE ---
Current Diagnoses Other chronic pain (07/02/21) Dorsalgia, unspecified (07/02/21) Other muscle spasm (07/02/21) Contusion of left hip, initial encounter (07/02/21) Medical History (Last Reviewed 07/03/21 @ 10:20 by Patricia Benitez MD) Chronic back pain Depression Fibromyalgia GERD (gastroesophageal reflux disease) Hypertension Osteoarthritis Physical Therapy Inpatient Evaluation/Re-Eval M1 PT/OT-IP Prior Functional Status Start: 07/03/21 13:54 Freq: NEEDED Status: Discharge Protocol: Document 07/03/21 13:20 DLM (Rec: 07/03/21 14:07 DL [id number]) Medical Review Prior Functional Status Medical History Reviewed Yes Diet/Fluid Consistency Regular Communication WNL Mobility and Gait Independent without a device, active in community, walks for exercise Activities of Daily Living and IADL's Independent Prior Functional Level (Other details) RV has some narrow areas such as in the bathroom and the bedroom. The bathroom has two steps to go up to get into it. Pt reports the FWW will fit through the main living area. Social History Household Members spouse Living Arrangements RV Number of Floors (Floors) One Floor Number of Stairs To Enter/Railing? 2-3 steps with rail Home Environment High Toilet,Walk in Shower M2 PT-IP Current Condition Start: 07/03/21 13:54 Freq: NEEDED Status: Discharge Protocol: Document 07/03/21 13:20 DLM (Rec: 07/03/21 14:07 DL [id number]) Physical Therapy Current Condition Current Condition Evaluation Date 07/03/21 Treatment Diagnosis fall with left hip contusion, impaired gait Onset Date 07/02/21 M3 PT-IP Subjective Start: 07/03/21 13:54 Freq: NEEDED Status: Discharge Protocol: Document 07/03/21 13:20 DLM (Rec: 07/03/21 14:07 DL [id number]) Subjective Physical Therapy Visit Type Type Initial Evaluation Visit Start Time 12:48 Visit Stop Time 13:20 Total Visit Minutes 31 Notes Spouse is present this visit Number of SALES LEAD Visits 0 Physical Therapy Visit Comments Patient Comments Her will be home 3-4 days to give her extra help at discharge Patient Goals discharge home Therapy Pain Assessment Pain When Pain Assessed During Mobility Pain Present Pain Present Pain Reported Location Left Hip Intensity 5 Scale Used Numeric (0 - 10) Description Aching,Tender,Tightness,With Movement Pain Behaviors Facial Grimacing,Guarding Pain Management Techniques Apply Cold,Elevation M4 PT-IP Mobility and Gait Start: 07/03/21 13:54 Freq: NEEDED Status: Discharge Protocol: Document 07/03/21 13:20 DLM (Rec: 07/03/21 14:07 DLM [id number]) PT-Bed Mobility Assessment Supine to Sit Supine to Sit Independent Sit to Supine Sit to Supine Independent Scooting Scooting to Edge of Bed Independent Scooting Up and Down in Bed Independent PT-Transfer Assessment Sit to and From Stand Sit to and from Stand Independent,Use of Upper Extremities Equipment Transfer Assistive Device Gait Belt,Front Wheeled Walker Transfers Transfer Destination Bed,Toilet Transfer Technique Stand Step Pivot Transfer Ability Level of Assist Standby Assistance,Use of Upper Extremities Comments Mobility Comments education for safe use of UE's during sit-stand Gait Assessment Gait Gait Assistance Required: Standby Assistance Distance (Feet) 150 Able to Maintain Weight Bearing Status Yes During Gait Assistive Devices Assistive Device Gait Belt,Front Wheeled Walker Gait Deviations General Gait Pattern Antalgic,Decreased Stride Length Factors Limiting Gait Function Factors Limiting Gait Function Decreased Activity Tolerance, Decreased Strength,Limited Range of Motion,Pain Comments Gait Comments pain in left LE limits weight bearing on left LE, pt using UE's to compensate on the fWW, educated pt to keep left foot flat to avoid left calf pain/ cramping, tried a cane for gait but pt feels unsafe Stair Climbing Assessment Evaluation Level of Assist On Stairs Standby Assistance Devices Stair Climbing Assistive Devices Left Railing,Right Railing Technique/Endurance Stair Climbing Direction Ascend and Descend Stair Climbing Technique Step to Step Number of Steps Climbed 3 Query Text: Stair Climbing Set # Repetitions (reps) 1 Comments Stair Climbing Comments education on step-to sequencing to manage left hip area pain PT-Balance Assessment Sitting Balance and Reactions Static Sitting Balance Ability Normal Dynamic Sitting Balance Ability Normal Standing Balance and Reactions Static Standing Balance Ability Good Dynamic Standing Balance Ability Good Device Used fWW M5 PT-IP Objective Assessments Start: 07/03/21 13:54 Freq: NEEDED Status: Discharge Protocol: Document 07/03/21 13:20 DLM (Rec: 07/03/21 14:07 DLM [id number]) Orientation Orientation/Cognition Level of Alertness Alert Orientation Name,Age,Birthday,Month,Date, Year,Day of Week,Place, Situation Language Function Ability No Deficits Noted Safety Awareness Understands Safety Issues Memory Description No Deficits Noted Comments mild anxiety noted Gross Range of Motion Upper Extremity ROM Assessment Within Functional Limits Lower Extremity ROM Assessment Within Functional Limits Strength Upper Extremity Strength Assessment Within Functional Limits Lower Extremity Strength Assessment Left Impaired Hip flexion 3-/5 Knee ext 3-/5 Ankle DF 4+/5 Comments Strength Comments pain in left thigh and hip area limits her functional strength Coordination Assessment Gross Coordination Gross Coordination WNL Sensation Assessment Sensation Gross Sensation WNL Muscle Tone Muscle Tone WNL Yes M6 PT-IP Treatment Start: 07/03/21 13:54 Freq: NEEDED Status: Discharge Protocol: Document 07/03/21 13:20 DL (Rec: 07/03/21 14:07 [facility] [id number]) Physical Therapy Treatment Exercises Exercises Ankle Pumps,Quad Sets,Seated Knee Flexion/Extension Education Education Provided Safety Equipment Issued Equipment Type [employer] FWW from [employer] for home use (Adult with 5 inch wheels), set-up and adjusted for pt, educated pt and spouse in use of the FWW Other Treatments Other Treatment Performed encouraged use of ice on thigh /hip area to manage her pain M7 PT-IP Assessment and Plan Start: 07/03/21 13:54 Freq: NEEDED Status: Discharge Protocol: Document 07/03/21 13:20 DLM (Rec: 07/03/21 14:07 [facility] [id number]) PT Summary Assessment and Plan Potential Rehabilitation Potential Good Status of Condition at Evaluation Evolving Summary Impairments Pain,ROM,Strength,Transfers, Gait,Activity Tolerance Progress Towards Goals Safe For Discharge Assessment Summary Alcon is alert and resting in bed. She is eager to go home. Educated pt and her Spouse in use of FWW for gait to compensate for left LE pain . She tolerated gait with the FWW well in the [place]. She was able to go up and down steps with step-to pattern. Her Spouse will be available to help her at home. She was able to complete all training this visit. She appears to be safe to discharge home with her Spouse when she is medically stable. FWW issued for home use. Frequency of Treatment Frequency Of Treatment Discharge Treatment Plan Physical Therapy Treatment Plan Bed Mobility Training,Transfer Training,Gait Training, Therapeutic Exercise,Balance Retraining,Discharge Planning, Hot or Cold Pack Other Recommendations and Next Treatment completed education and Focus training this visit Weight Bearing Status Weight Bearing Status Weight Bear as Tolerated Recommendations To Nursing Amount of Assist Needed Standby Assistance Discharge Recommendations PT Discharge Recommendations Home with Assistance Other Discharge Recommendations pt may want a cane to help in her bathroom but she is aware of where she can get one Equipment Needed for Home Before FWW for gait Discharge Transportation Needs at Discharge Private Vehicle
--- NOTE | 2021-07-03 13:33 | P.DS_ITS ---
History of Present Illness History of Present Illness Date Patient Seen: 07/03/21 Chief complaint: FELL ON ICE/KNOT ON HIP/PAIN Narrative: History of Present Illness History of Present Illness Date Patient Seen:?07/03/21 Time Patient Seen:?10:00 Date of Onset of Symptoms:?07/02/21 Narrative: This is a pleasant 60-year-old female who fell on the ice and noted the acute onset of severe left hip pain.? She printed presented to [facility] with severe pain and difficulty putting weight on the left hip.? Her plain x-rays showed some abnormality along the femoral neck and a CT scan was non the [facility] that did show an abnormality along the femoral neck.? She was admitted to [facility] with a presumptive diagnosis of left femoral neck fracture with a plan to get an MRI scan for definitive diagnosis.? Her MRI scan was done this morning it shows a severe contusion of the left hip and some cystic changes along the femoral head neck junction but no evidence of a definitive fracture. Discharge Providers Provider Date of admission: 07/02/21 21:52 Discharge Date: 07/03/21 Primary care physician: Ranjana Cadena DO Consults: 07/02/21 21:36 Consult to Orthopedic Surgery Stat Comment: Consulting Provider: Patricia Benitez Reason for consultation: suspected hip fracture 07/02/21 22:13 Consult to Physician Routine Comment: Consulting Provider: Patricia Benitez Reason for consultation: Suspected left hip fracture Has provider been notified: Yes 07/03/21 10:11 Consult to Physical Therapy Evaluate & Treat Comment: WBAT left LE, walker, home post pt Physician Instructions: Evaluate and Treat Discharge provider: Liv Lucas DO Summary Hospital Course Discharge Diagnosis: ACCIDENTAL FALL. GROUND LEVEL LEFT HIP HEMATOMA SECONDARY TO FALL LEFT HIP CONTUSION. TREATED CONSERVATIVELY Hospital Course: PATIENT ADMITTED TO THE HOSPITAL AFTER AN ACCIDENTAL FALL AT HOME. SHE FELL ON HER LEFT HIP AND HAD A SIGNIFICANT HEMATOMA. HOWEVER SUBSEQUENT IMAGING DID NOT SHOW A DEFINITE FRACTURE. SHE WAS SEEN BY ORTHOPEDIC SURGERY WHO AGREES PATIENT WAS TREATED SYMPTOMATICALLY. SHE WILL BE DISCHARGED ON PAIN CONTROL MEDS WELL MUSCLE RELAXER. ADDITIONAL MANAGEMENT WILL BE DEFERRED TO OUTPATIENT PROVIDERS. SHE WAS PROVIDED A WALKER TO AMBULATE OVER THE NEXT FEW DAYS DISCOMFORT Status at Discharge Cognitive/behavioral status at discharge: oriented Functional status at discharge: uses cane/walker Overall status at discharge: patient is not back to baseline Exam Vital Signs (past 8 hours): - 07/03/21 07:25 07/03/21 12:20 Temperature 95.5 F L 97.3 F L Pulse Rate 91 H 78 Respiratory Rate 17 19 Blood Pressure 139/64 141/73 H Pulse Oximetry 98 97 Oxygen Delivery Method Room Air Oxygen Flow Rate 0 Narrative Exam Narrative: NO ACUTE DISTRESS. PATIENT IS ALERT ORIENTED X3. VITAL SIGNS STABLE HEAD ATRAUMATIC NORMOCEPHALIC NECK : SUPPLE WITHOUT ADENOPATHY NO CAROTID BRUITS EYE: EOMI, PERRLA, NORMAL CONJUNCTIVA; NO JAUNDICE CHEST: REGULAR RATE. NO RUBS. PMI IS NON DISPLACED. NO MURMURS; NORMAL S1- S2 PULMONARY: DECREASED BS OVER THE BASES. MILD BIBASILAR CRACKLES NOTED; NO INCREASED DULLNESS TO PERCUSSION ABDOMEN: SOFT. NONTENDER. NONDISTENDED. BOWEL SOUNDS ARE PRESENT IN ALL 4 QUADRANTS. NO MASS. EXTREMITIES: NO EDEMA.. NO CYANOSIS OR CLUBBING NOTED. NEURO: CRANIAL NERVES 2-12 GROSSLY INTACT. NO FOCAL NEUROLOGICAL DEFICIT NOTED. MSK: NO DEFORMITIES. DISCOMFORT WITH ACTIVE AND PASSIVE MOTION ON THE LEFT LOWER EXTREMITY. HEMATOMA ALSO NOTED UNDER LEFT HIP. NO OPEN WOUND SKIN: GOOD TURGOR.; NO RASHES PSYCH : APPROPRIATE MOOD AND AFFECT. ALERT AWAKE ORIENTED X3 Objective Labs Result Diagrams: 07/02/21 20:00 07/02/21 20:00 Labs: Laboratory Results - last 24 hr 07/02/21 07/02/21 07/02/21 20:00 20:00 21:44 WBC 11.1 H RBC 4.50 Hgb 13.4 Hct 39.5 MCV 87.9 MCH 29.8 MCHC 33.9 RDW 13.2 Plt Count 284 Neut % (Auto) 82.0 H Lymph % (Auto) 10.7 L [place] % (Auto) 6.7 Eos % (Auto) 0.2 L Baso % (Auto) 0.4 Neut # (Auto) 9100 H Lymph # (Auto) 1200 [place] # (Auto) 700 Eos # (Auto) 0 Baso # (Auto) 0 Sodium 141 Potassium 3.6 Chloride 106 Carbon Dioxide 28 BUN 13 Creatinine 0.78 Estimated GFR > 60.0 BUN/Creatinine Ratio 16.7 Glucose 111 H Calcium 9.5 SARS-CoV-2 (PCR) Negative PFSH Medical History Chronic back pain Depression Fibromyalgia GERD (gastroesophageal reflux disease) Hypertension Osteoarthritis Surgical History S/P sinus surgery Status post foot surgery Status post Mary fundoplication Family History Father Lung cancer Mother Emphysema lung Social History (Updated 07/03/21 @ 01:38 by YASSINE Wayne) marital status: household members: spouse Smoking Status: Former smoker alcohol intake: former additional social history: Zoroastrian, does not except whole blood transfusions Discharge Plan Discharge Plan Patient Disposition: Home Provider Discharge Comment: Follow-up with me in 10 days. Discharge orders & Medications Prescriptions: New acetaminophen 325 mg Tablet 650 mg PO Q6HR PRN (Reason: Fever/Mild Pain (1-3)) Qty: 60 0RF hydrocodone-acetaminophen 5-325 mg Tablet 1 tab PO Q4HR PRN (Reason: Pain, Moderate (4-6)) Qty: 30 0RF aspirin 81 mg Tablet,Delayed Release (Dr/Ec) 81 mg PO BID Qty: 60 0RF Continued fluticasone propionate 50 mcg/actuation spray,suspension 2 spray NASAL DAILY PRN (Reason: Allergy Symptoms) 0RF Rx Instructions: administer into each nostril loratadine 10 mg tablet 10 mg PO PRN PRN (Reason: allergies) 0RF escitalopram oxalate [Lexapro] 10 mg Tablet 10 mg PO DAILY 0RF duloxetine [Cymbalta] 20 mg Capsule,Delayed Release(Dr/Ec) 20 mg PO DAILY 0RF Follow up/Referrals: Ranjana Cadena DO [Primary Care Provider] - Patricia Benitez MD [Physician] - Discharge Health Status Multidrug resistant organism: No MDRO Diet/Activity/Treatments Diet: Diet as Tolerated Activity: Ambulate multiple times a day. Okay to put weight on left leg as tolerated. Cold/Heat Therapy: Apply ice to left hip multiple times a day. Other treatments: Use walker to of ambulate. Avoid falls. Take baby aspirin to prevent a blood clot. Skin/Wound/Dressing Care Report to your healthcare provider any signs of infection, such as:: chills, fever, night sweats and increased pain Visit Report/Discharge Packet Instructions: DI for Prescription Opioid Use, Hydrocodone/Acetaminophen (By [place] th) Discharge Data Primary Care Provider: Ranjana Cadena VTE Deep Vein Thrombosis/Pulmonary Embolism Present on Admission: No
--- NOTE | 2021-07-03 14:06 | PC.NURSE ---
Went over dc instructions and medications with patient, questions answered. Rx for new meds given. Patient taken via wc to vehicle driven by spouse, patient had all belongings.
== END 2021-07-03 14:07 | disposition home or self-care (01) ==
LOC: ED 21:49 → AC 07-03 08:19
PROVIDERS: Admitting Provider Nurse Practitioner Family; Emergency Provider Emergency Medicine; PCP Family Medicine; Referring Provider Emergency Medicine; Visit Provider Nurse Practitioner Family
DX: S70.02XA Contusion of left hip, initial encounter (principal); W00.0XXA Fall on same level due to ice and snow, initial encounter; F32.9 Major depressive disorder, single episode, unspecified; M79.7 Fibromyalgia; I10 Essential (primary) hypertension; Z20.822 Contact with and (suspected) exposure to COVID-19
CPT/HCPCS: 36415; 72192; 73502; 73721; 80048; 85025; 87635; 96361; 96374; 96375; 96376; 97162; 99284; C9803; G0378; J1885; J2270; J2405

== ENCOUNTER 2021-10-10 17:41 | Emergency (ER) | payer OTHER, SELFPAY ==
[2021-10-10 17:48] VITALS: BP 144/67; PULSE 88; RESP 17; TEMP 37.4; O2SAT 97; BMI 18.8
--- NOTE | 2021-10-10 17:52 | DI.RAD.S_ITS ---
PROCEDURE: XR CHEST 1V INDICATIONS: chest pain TECHNIQUE: One view of the chest was acquired. COMPARISON: [facility], , CHEST 1 VIEW, 05/06/2014, 16:42. FINDINGS: Surgical changes and devices: None. Lungs and pleura: Lungs are clear. No pleural effusions or pneumothorax. Mediastinum: Mediastinal contours appear normal. Heart size is normal. Bones and chest wall: No suspicious bony lesions. Overlying soft tissues appear unremarkable. IMPRESSION: No acute cardiopulmonary abnormality Dictated by: Terry Murcia M.D. on 10/10/2021 at 18:17 Approved by: Terry Murcia M.D. on 10/10/2021 at 18:17
[2021-10-10 18:06] LABS: Appearance Urine UA CLEAR; Bilirubin Urine UA NEGATIVE (NEGATIVE); Color Urine UA YELLOW; Glucose Urine UA TRACE g/dL (Negative); Ketones Urine UA NEGATIVE (NEGATIVE); Leukocyte Esterase Urine UA 1+ (NEGATIVE); Nitrite Urine UA NEGATIVE (Negative); Occult Blood Urine UA 2+ (Negative); Protein Urine UA NEGATIVE (Negative); Specific Gravity Urine UA <=1.005 (1.000-1.035); Urobilinogen Urine UA 0.2 E.U./dL (0.2)
[2021-10-10 18:12] LABS: Bacteria Urine None Seen; Culture Indicated Urine Cult Not Indicated; RBC Urine 5-10/HPF (0-5/HPF); Renal Epithelial Cells Urine 5-10/HPF (0-1/HPF); Squamous Epithelial Cell Urine 5-10 /HPF (0-5/HPF); WBC Urine 5-10/HPF (0-5/HPF)
[2021-10-10 18:18] LABS: COVID19 -Nasal RAPID Negative (Negative)
[2021-10-10 18:27] LABS: Add Manual Diff / Slide Review NO; Basophils Absolute Auto 0 /uL (0-100); Basophils Percent Auto 0.3 % (0-2); Eosinophils Absolute Auto 100 /uL (0-450); Eosinophils Percent Auto 0.7 % (2-4); Hematocrit 42.6 % (36-46); Lymphocytes Absolute Auto 1800 /uL (1100-4500); Lymphocytes Percent Auto 19.5 % (25-40); Mean Corpuscular HGB Conc 35.1 % (30-36); Mean Corpuscular Hemoglobin 30.2 PG (26-34); Mean Corpuscular Volume 85.8 fL (80-100); Monocytes Absolute Auto 700 /uL (0-900); Monocytes Percent Auto 8.3 % (3-14); Neutrophils Absolute Auto 6400 /uL (1500-7000); Neutrophils Percent Auto 71.2 % (50-75); Platelet Count 266 X10^3/uL (150-400); Red Blood Cell Count 4.97 X10^6/uL (4.0-5.2); Red Cell Distribution Width 12.9 % (11.6-14.8)
[2021-10-10 18:29] LABS: Alanine Aminotransferase 27 IU/L (<35); Albumin 4.5 g/dL (3.5-5.0); Albumin Globulin Ratio 1.2 (1.0-2.8); Alkaline Phosphatase 60 U/L (38-126); Aspartate Aminotransferase 28 IU/L (14-36); BUN Creatinine Ratio 8.2 (6-22); Blood Urea Nitrogen 5 mg/dL (7-17); Calcium 9.5 mg/dL (8.4-10.2); Carbon Dioxide 29 mmol/L (22-32); Chloride 99 mmol/L (98-107); Creatine Kinase 41 U/L (30-135); Estimated Glomerular Filt Rate > 60.0 mL/min (>60); Globulin 3.8 g/dL (1.7-4.1); Glucose 109 mg/dL (80-110); HEMOLYSIS < 15 (0-50); Lipase 36 U/L (23-300); Magnesium 1.6 mg/dL (1.6-2.3); Potassium 2.9 mmol/L (3.4-5.1); Sodium 138 mmol/L (137-145); Total Protein 8.3 g/dL (6.3-8.2)
[2021-10-10 18:40] LABS: Troponin I < 0.012 ng/mL (0.01-0.034)
[2021-10-10] MEDS: SODIUM CHLORIDE 0.9% 1,000 ML 1000 ML IV (18:47)
--- NOTE | 2021-10-10 18:51 | ED_ITS ---
HPI - Chest Pain General Chief Complaint: Chest Pain Stated Complaint: Heart Pain, High BP Time Seen by Provider: 10/10/21 18:13 Source: patient Mode of arrival: Ambulatory History of Present Illness HPI narrative: 60-year-old woman with a history of a depression, chronic pain, reflux with hiatal hernia and peptic ulcer disease but no prior issues with hypertension presents complaining of a nausea vomiting, significant hypertension and generally feeling poorly. She notes that her symptoms began 4 days ago with some significant nausea and dry heaves but no actual emesis along with a moderate amount of diarrhea. She was seen at [facility] Emergency Room yesterday with similar complaints found to have elevated blood pressure and a low potassium that was treated with oral potassium. Related Data Home Medications Medication Instructions Recorded Confirmed escitalopram oxalate 10 mg tablet 10 mg PO DAILY 11/07/17 10/10/21 (Lexapro) fluticasone propionate 50 2 spray NASAL DAILY PRN 06/06/18 10/10/21 mcg/actuation nasal spray,suspension loratadine 10 mg tablet 10 mg PO PRN PRN 07/10/18 10/10/21 duloxetine 20 mg capsule,delayed 20 mg PO DAILY 06/17/20 10/10/21 release (Cymbalta) Previous Rx's Medication Instructions Recorded acetaminophen 325 mg tablet 650 mg PO Q6HR PRN #60 tab 07/03/21 aspirin 81 mg tablet,delayed 81 mg PO BID #60 tab 07/03/21 release hydrocodone 5 mg-acetaminophen 325 1 tab PO Q4HR PRN #30 tab 07/03/21 mg tablet metoprolol tartrate 25 mg tablet 25 mg PO BID #60 tab 10/10/21 potassium chloride 20 mEq 20 meq PO DAILY #7 tab 10/10/21 tablet,extended release(part/cryst) Allergies Allergy/AdvReac Type Severity Reaction Status Date / Time No Known Drug Allergies Allergy Verified 10/10/21 17:51 Review of Systems Review of Systems Narrative: Remainder of complete review of systems is otherwise unremarkable except for that included in the HPI. Patient History Medical History Chronic back pain Depression Fibromyalgia GERD (gastroesophageal reflux disease) Hypertension Osteoarthritis Surgical History S/P sinus surgery Status post foot surgery Status post Mary fundoplication Family History Father Lung cancer Mother Emphysema lung Social History (Updated 07/03/21 @ 01:38 by YASSINE Wayne) marital status: household members: spouse Smoking Status: Former smoker alcohol intake: former additional social history: L[employer] day, does not except whole blood transfusions Smoking Status: Former smoker alcohol intake frequency: other Substance Use Type: marijuana Exam Initial Vital Signs Initial Vital Signs: Vital Signs Temperature 99.3 F 10/10/21 17:48 Pulse Rate 88 10/10/21 17:48 Respiratory Rate 17 10/10/21 17:48 Blood Pressure 144/67 H 10/10/21 17:48 Pulse Oximetry 97 10/10/21 17:48 General: Healthy appearing, in no acute distress. Able to give a complete and coherent history. Well-nourished well-developed HEENT: Moist mucous membranes, normal sclera with reactive pupils, Neck: No JVD, supple Respiratory: Lungs are clear to auscultation, no wheezing no rales no rhonchi. Full and symmetrical air movement Cardiac: Regular rate and rhythm no murmurs no bruits Abdomen: Soft, mild upper abdominal discomfort without rebound or guarding good bowel tones, no flank pain Skin: Warm and dry, no rashes Neurologic: Grossly neurologically intact with no obvious asymmetries or abnormalities Extremities: No trauma, well perfused Psych: Cooperative, appropriate insight and affect Course Orders Ordered: ED Orders 10/10/21 17:52 XR chest 1V Stat EKG-12 Lead Stat 10/10/21 17:54 COVID19 -Nasal RAPID/Pre-Proc Stat 10/10/21 18:00 Urinalysis and Microscopic Stat 10/10/21 18:10 Complete Blood Count AUTO DIFF Stat Comprehensive Metabolic Panel Stat Lipase Stat Magnesium Stat Troponin & CK Cardiac Panel Stat Discontinued Medications Sodium Chloride (Normal Saline 0.9%) 1,000 mls @ 1,000 mls/hr IV BOLUS ONE Stop: 10/10/21 18:58 Last Admin: 10/10/21 18:47 Dose: 1,000 mls/hr Documented by: ELODIA Metoclopramide HCl (Metoclopramide 10 Mg/2 Ml Inj) 10 mg IV NOW ONE Stop: 10/10/21 19:20 Last Admin: 10/10/21 19:25 Dose: 10 mg Documented by: FERN Metoprolol Tartrate (Metoprolol Ir 25 Mg Tablet) 25 mg PO NOW ONE Stop: 10/10/21 19:20 Last Admin: 10/10/21 19:25 Dose: 25 mg Documented by: FERN Ondansetron HCl (Ondansetron 4 Mg/2 Ml Inj) 4 mg IV NOW ONE Stop: 10/10/21 19:05 Last Admin: 10/10/21 19:13 Dose: 4 mg Documented by: FERN Potassium Chloride (Potassium Chloride 20 Meq Tab) 40 meq PO NOW ONE Stop: 10/10/21 19:05 Last Admin: 10/10/21 19:13 Dose: 40 meq Documented by: FERN Vital Signs Vital signs: Vital Signs - 8 hr 10/10/21 17:48 10/10/21 19:00 10/10/21 19:36 Temperature 99.3 F Pulse Rate 88 78 71 Respiratory Rate 17 18 18 Blood Pressure 144/67 H 172/84 H 156/84 H Pulse Oximetry 97 97 98 MDM - Chest Pain Medical Records Data Medical records narrative: Records from [facility] Emergency Department visit from October 09 reviewed potassium at that time was 3.0 Lab Data Result diagrams: 10/10/21 18:10 10/10/21 18:10 Labs: Lab Results 10/10/21 10/10/21 10/10/21 Range/Units 17:54 18:00 18:10 WBC 9.0 (4.5-11.0) X10^3/uL RBC 4.97 (4.0-5.2) X10^6/uL Hgb 15.0 (12.0-16.0) g/dL Hct 42.6 (36-46) % MCV 85.8 (80-100) fL MCH 30.2 (26-34) PG MCHC 35.1 (30-36) % RDW 12.9 (11.6-14.8) % Plt Count 266 (150-400) X10^3/uL Neut % (Auto) 71.2 (50-75) % Lymph % (Auto) 19.5 L (25-40) % [place] % (Auto) 8.3 (3-14) % Eos % (Auto) 0.7 L (2-4) % Baso % (Auto) 0.3 (0-2) % Neut # (Auto) 6400 (2505-7547) /uL Lymph # (Auto) 1800 (7063-1666) /uL [place] # (Auto) 700 (0-900) /uL Eos # (Auto) 100 (0-450) /uL Baso # (Auto) 0 (0-100) /uL Sodium (137-145) mmol/L Potassium (3.4-5.1) mmol/L Chloride (98-107) mmol/L Carbon Dioxide (22-32) mmol/L BUN (7-17) mg/dL Creatinine (0.52-1.04) mg/dL Estimated GFR (>60) mL/min BUN/Creatinine Ratio (6-22) Glucose (80-110) mg/dL Calcium (8.4-10.2) mg/dL Magnesium (1.6-2.3) mg/dL Total Bilirubin (0.2-1.3) mg/dL AST (14-36) IU/L ALT (<35) IU/L Alkaline Phosphatase (38-126) U/L Total Creatine Kinase (30-135) U/L CK-MB (CK-2) CK-MB (CK-2) Rel Index Troponin I (0.01-0.034) ng/mL Total Protein (6.3-8.2) g/dL Albumin (3.5-5.0) g/dL Globulin (1.7-4.1) g/dL Albumin/Globulin Ratio (1.0-2.8) Lipase (23-300) U/L Urine Color Yellow Urine Appearance Clear Urine pH 6.0 (4.5-8.0) Ur Specific [place] <=1.005 (1.000-1.035) Urine Protein Negative (Negative) Urine Glucose (UA) Trace H (Negative) g/dL Urine Ketones Negative (NEGATIVE) Urine Occult Blood 2+ H (Negative) Urine Nitrate Negative (Negative) Urine Bilirubin Negative (NEGATIVE) Urine Urobilinogen 0.2 (0.2) E.U./dL Ur Leukocyte Esterase 1+ H (NEGATIVE) Urine RBC 5-10/hpf H (0-5/HPF) Urine WBC 5-10/hpf H (0-5/HPF) Ur Squamous Epith Cells 5-10 /hpf H (0-5/HPF) Ur Renal Epithelial Cell 5-10/hpf H (0-1/HPF) Urine Bacteria None seen (None) Ur Culture Indicated? Cult not indicated SARS-CoV-2 (PCR) Negative (Negative) 10/10/21 Range/Units 18:10 WBC (4.5-11.0) X10^3/uL RBC (4.0-5.2) X10^6/uL Hgb (12.0-16.0) g/dL Hct (36-46) % MCV (80-100) fL MCH (26-34) PG MCHC (30-36) % RDW (11.6-14.8) % Plt Count (150-400) X10^3/uL Neut % (Auto) (50-75) % Lymph % (Auto) (25-40) % [place] % (Auto) (3-14) % Eos % (Auto) (2-4) % Baso % (Auto) (0-2) % Neut # (Auto) (6994-9647) /uL Lymph # (Auto) (5299-2575) /uL [place] # (Auto) (0-900) /uL Eos # (Auto) (0-450) /uL Baso # (Auto) (0-100) /uL Sodium 138 (137-145) mmol/L Potassium 2.9 L (3.4-5.1) mmol/L Chloride 99 (98-107) mmol/L Carbon Dioxide 29 (22-32) mmol/L BUN 5 L (7-17) mg/dL Creatinine 0.61 (0.52-1.04) mg/dL Estimated GFR > 60.0 (>60) mL/min BUN/Creatinine Ratio 8.2 (6-22) Glucose 109 (80-110) mg/dL Calcium 9.5 (8.4-10.2) mg/dL Magnesium 1.6 (1.6-2.3) mg/dL Total Bilirubin 1.0 (0.2-1.3) mg/dL AST 28 (14-36) IU/L ALT 27 (<35) IU/L Alkaline Phosphatase 60 (38-126) U/L Total Creatine Kinase 41 (30-135) U/L CK-MB (CK-2) TNP CK-MB (CK-2) Rel Index TNP Troponin I < 0.012 (0.01-0.034) ng/mL Total Protein 8.3 H (6.3-8.2) g/dL Albumin 4.5 (3.5-5.0) g/dL Globulin 3.8 (1.7-4.1) g/dL Albumin/Globulin Ratio 1.2 (1.0-2.8) Lipase 36 (23-300) U/L Urine Color Urine Appearance Urine pH (4.5-8.0) Ur Specific [place] (1.000-1.035) Urine Protein (Negative) Urine Glucose (UA) (Negative) g/dL Urine Ketones (NEGATIVE) Urine Occult Blood (Negative) Urine Nitrate (Negative) Urine Bilirubin (NEGATIVE) Urine Urobilinogen (0.2) E.U./dL Ur Leukocyte Esterase (NEGATIVE) Urine RBC (0-5/HPF) Urine WBC (0-5/HPF) Ur Squamous Epith Cells (0-5/HPF) Ur Renal Epithelial Cell (0-1/HPF) Urine Bacteria (None) Ur Culture Indicated? SARS-CoV-2 (PCR) (Negative) ECG Data Interpretation: Sinus rhythm at a rate of 79 Normal intervals normal axis Nonspecific ST T wave changes No acute ischemic changes MDM Narrative Medical decision making narrative: 60-year-old woman with 4 days of dry heaves without overt vomiting, diarrhea, poor p.o. intake and now noticing significant hypertension and general malaise. Workup in the emergency department [facility] yesterday was relatively benign she was given for 40 mg of potassium and discharge home with follow-up for primary care. Workup today is actually equally reassuring. Clinical exam is benign, potassium is actually a bit lower at 2.9, she has no significant leukocytosis or fever to suggest infection otherwise. She notes that the Zofran she has has been only moderately effective with controlling her nausea and she still has little appetite. Blood pressures do remain significantly elevated and she is concerned. She has been checking at home. We talked about reactive hypertension however she was much more comfortable with beginning treatment for her hypertension. To this and will start her on metoprolol tartrate 25 mg b.i.d. and ask her to continue to check daily blood pressures as well as heart rate. She is not showing acute cardiac issues nor neurologic issues suggesting the need for admission or additional workup due to hypertension at this time. Because her potassium not gone up at all will also place her on 20 mEq of potassium daily for the next week. Impressed upon her the importance of follow-up with her primary care physician to repeat potassium levels and also review need for continued metoprolol or possibly changing medications and doses. She is quite amenable to all of this. At this point she is not toxic has responded nicely to 1 L of saline, IV Zofran and IV Reglan. She has a prescription for Zofran at home will add a prescription of Reglan to see if this might be a bit more effective for her. And will ask that she begin the metoprolol. She is safe for home discharge Discharge Plan Departure Patient Disposition: Home Clinical Impression: Acute hypokalemia, Nausea, vomiting and diarrhea, Hypertension Instructions: DI for High Blood Pressure, DI for Vomiting -- Adult Activity Restrictions/Additional Instructions: Thank you for coming in today I am not sure why you are having the diarrhea and the nausea however I am not seeing signs of overwhelming infection or severe abdominal abnormalities. With vomiting and diarrhea you are having low potassium levels and this may be contributing to the general weakness, as well as the blood pressure issues. I am going to place you on potassium 20 mEq daily for the next week presuming that your diarrhea and vomiting will has stopped by that time. For the persistent nausea, you do have a prescription for Zofran available to [facility], am also going to give you a prescription for Reglan. This is a nausea medicine that works through a different pathway and may be more effective for you. With your blood pressure is elevated as it has been I am going to suggest beginning you on a low-dose outpatient blood pressure medication regimen. Metoprolol 25 mg to be taken twice a day. I do need you to keep close track of your blood pressures while on this medication so that you can discuss how your body is responding to this when you see your primary care doctor at the end of the week. Please schedule appointment with your primary care doctor near the end of the week to recheck potassium levels and blood pressure as well as the need to continue metoprolol Prescriptions were electronically transmitted to [facility] If you have worsening symptoms, please feel free to return to the ER Prescriptions: New metoprolol tartrate 25 mg tablet 25 mg PO BID Qty: 60 0RF potassium chloride 20 mEq tablet,ER particles/crystals 20 meq PO DAILY Qty: 7 0RF No Action fluticasone propionate 50 mcg/actuation spray,suspension 2 spray NASAL DAILY PRN (Reason: Allergy Symptoms) 0RF Rx Instructions: administer into each nostril loratadine 10 mg tablet 10 mg PO PRN PRN (Reason: allergies) 0RF acetaminophen 325 mg Tablet 650 mg PO Q6HR PRN (Reason: Fever/Mild Pain (1-3)) Qty: 60 0RF hydrocodone-acetaminophen 5-325 mg Tablet 1 tab PO Q4HR PRN (Reason: Pain, Moderate (4-6)) Qty: 30 0RF aspirin 81 mg Tablet,Delayed Release (Dr/Ec) 81 mg PO BID Qty: 60 0RF escitalopram oxalate [Lexapro] 10 mg Tablet 10 mg PO DAILY 0RF duloxetine [Cymbalta] 20 mg Capsule,Delayed Release(Dr/Ec) 20 mg PO DAILY 0RF Referrals: Ranjana Cadena DO [Primary Care Provider] -
[2021-10-10 19:00] VITALS: BP 172/84; PULSE 78; RESP 18; O2SAT 97
[2021-10-10] MEDS: ONDANSETRON 4 MG/2 ML INJ IV (19:13)
[2021-10-10] MEDS: POTASSIUM CHLORIDE 20 MEQ TAB 40 MEQ PO (19:13)
[2021-10-10] MEDS: METOPROLOL IR 25 MG TABLET PO (19:25)
[2021-10-10] MEDS: METOCLOPRAMIDE 10 MG/2 ML INJ IV (19:25)
[2021-10-10 19:36] VITALS: BP 156/84; PULSE 71; RESP 18; O2SAT 98
[2021-10-10 19:50] VITALS: BP 176/80; PULSE 74; RESP 18; O2SAT 99
== END 2021-10-10 20:05 | disposition home or self-care (01) ==
PROVIDERS: Emergency Medicine; Emergency Provider Emergency Medicine; PCP Family Medicine
DX: E87.6 Hypokalemia (principal); R11.2 Nausea with vomiting, unspecified; R19.7 Diarrhea, unspecified; I10 Essential (primary) hypertension; Z87.891 Personal history of nicotine dependence; Z20.822 Contact with and (suspected) exposure to COVID-19
CPT/HCPCS: 36415; 71045; 80053; 81001; 82550; 83690; 83735; 84484; 85025; 87635; 93005; 93010; 96361; 96374; 96375; 99284; C9803; J2405; J2765

== ENCOUNTER 2022-01-02 09:05 | Emergency (ER) | payer OTHER, SELFPAY ==
[2022-01-02] VITALS (21 sets, daily range): BP systolic 106–188; BP diastolic 52–86; PULSE 68–91; RESP 11–39; TEMP 37.4; O2SAT 95–100; BMI 18.8
[2022-01-02 09:41] LABS: Add Manual Diff / Slide Review NO; Basophils Absolute Auto 0 /uL (0-100); Basophils Percent Auto 0.5 % (0-2); Eosinophils Absolute Auto 0 /uL (0-450); Eosinophils Percent Auto 0.5 % (2-4); Hematocrit 46.1 % (36-46); Lymphocytes Absolute Auto 1000 /uL (1100-4500); Lymphocytes Percent Auto 10.7 % (25-40); Mean Corpuscular HGB Conc 34.6 % (30-36); Mean Corpuscular Hemoglobin 29.7 PG (26-34); Mean Corpuscular Volume 85.8 fL (80-100); Monocytes Absolute Auto 500 /uL (0-900); Monocytes Percent Auto 5.9 % (3-14); Neutrophils Absolute Auto 7400 /uL (1500-7000); Neutrophils Percent Auto 82.4 % (50-75); Platelet Count 352 X10^3/uL (150-400); Red Blood Cell Count 5.38 X10^6/uL (4.0-5.2)
[2022-01-02] MEDS: SODIUM CHLORIDE 0.9% 1,000 ML 1000 ML IV (09:48)
[2022-01-02] MEDS: ONDANSETRON 4 MG/2 ML INJ IV (09:49)
[2022-01-02] MEDS: KETOROLAC 30 MG/ML VIAL 15 MG IV (09:49)
[2022-01-02] MEDS: PANTOPRAZOLE 40 MG VIAL IV (09:49)
[2022-01-02 09:50] LABS: Alanine Aminotransferase 17 IU/L (<35); Albumin 4.5 g/dL (3.5-5.0); Albumin Globulin Ratio 1.2 (1.0-2.8); Alkaline Phosphatase 65 U/L (38-126); Aspartate Aminotransferase 23 IU/L (14-36); BUN Creatinine Ratio 18.8 (6-22); Blood Urea Nitrogen 13 mg/dL (7-17); Calcium 9.1 mg/dL (8.4-10.2); Carbon Dioxide 34 mmol/L (22-32); Chloride 97 mmol/L (98-107); Estimated Glomerular Filt Rate > 60 mL/min (>60); Globulin 3.7 g/dL (1.7-4.1); Glucose 134 mg/dL (80-110); HEMOLYSIS < 15 (0-50); Lipase 148 U/L (23-300); Sodium 139 mmol/L (137-145); Total Protein 8.2 g/dL (6.3-8.2)
[2022-01-02 09:51] LABS: Potassium 2.7 mmol/L (3.4-5.1)
[2022-01-02 10:12] LABS: COVID19 -Nasal RAPID Negative (Negative)
[2022-01-02] MEDS: POTASSIUM CHLORIDE IN WATER 10 MEQ/100 ML PIGGYBACK 100 MEQ IV ×4 (10:24→14:31)
--- NOTE | 2022-01-02 10:38 | ED.NAVMDI ---
HPI - Nausea/Vomiting/Diarrhea General Chief complaint: Nausea/Vomiting/Diarrhea Stated complaint: High BP, nausea, chills Time Seen by Provider: 01/02/22 09:41 Source: patient Mode of arrival: Ambulatory History of Present Illness HPI Narrative: Patient is a 61-year-old female history of depression, chronic pain, reflux hiatal hernia presenting today with 3 days of nausea and vomiting. She states that she does intermittently use marijuana but not on a very regular basis. She was seen evaluated here in September for something similar but not quite as bad. She takes [place] fairly regularly for her chronic pain she has been unable to keep any of it down over last 3 days. She had 1 episode of diarrhea but nothing further. She has got some epigastric pain likely from her hiatal hernia and acid reflux. She has no chest pain or palpitations. No shortness of breath or fever. No on else is sick at home. Related Data Home Medications Medication Instructions Recorded Confirmed escitalopram oxalate 10 mg tablet 10 mg PO DAILY 11/07/17 10/10/21 (Lexapro) fluticasone propionate 50 2 spray intranasal DAILY PRN 06/06/18 10/10/21 mcg/actuation nasal Allergy Symptoms spray,suspension loratadine 10 mg tablet 10 mg PO PRN PRN allergies 07/10/18 10/10/21 duloxetine 20 mg capsule,delayed 20 mg PO DAILY 06/17/20 10/10/21 release (Cymbalta) Previous Rx's Medication Instructions Recorded acetaminophen 325 mg tablet 650 mg PO Q6HR PRN Fever/Mild Pain 07/03/21 (1-3) #60 tabs aspirin 81 mg tablet,delayed 81 mg PO BID #60 tabs 07/03/21 release hydrocodone 5 mg-acetaminophen 325 1 tab PO Q4HR PRN Pain, Moderate 07/03/21 mg tablet (4-6) #30 tabs metoclopramide HCl 10 mg tablet 10 mg PO Q6H PRN nausea and 10/10/21 (Reglan) vomiting #14 tabs metoprolol tartrate 25 mg tablet 25 mg PO BID #60 tabs 10/10/21 potassium chloride 20 mEq 20 meq PO DAILY #7 tabs 10/10/21 tablet,extended release(part/cryst) ondansetron 4 mg disintegrating 4 mg PO Q8H PRN nausea and 01/02/22 tablet vomiting #10 tabs Allergies Allergy/AdvReac Type Severity Reaction Status Date / Time No Known Drug Allergies Allergy Verified 10/10/21 17:51 Review of Systems Review of Systems Narrative: GENERAL: Denies chills, fatigue, malaise, fever, sweats, travel HEENT: Denies sinus pain, ear pain, sore throat, difficulty swallowing, neck pain RESPIRATORY: Denies dyspnea, cough, wheezing, hemoptysis, sputum. CARDIOVASCULAR: Denies chest pain, palpitations, orthopnea, edema GASTROINTESTINAL: See HPI : Denies dysuria, frequency, incontinence, hematuria, urinary retention, flank pain. MUSCULOSKELETAL: Denies weakness, joint pain, or bony pain SKIN: No rash, no erythema, no pruritus NEUROLOGIC: Denies weakness, dizziness, headache, numbness, change in speech, confusion PSYCHIATRIC: No concerning psychosocial issues. 12 point review of systems is negative except for those stated above and HPI Patient History Medical History Chronic back pain Depression Fibromyalgia GERD (gastroesophageal reflux disease) Hypertension Osteoarthritis Surgical History S/P sinus surgery Status post foot surgery Status post Mary fundoplication Family History Father Lung cancer Mother Emphysema lung Social History marital status: household members: spouse Smoking Status: Former smoker alcohol intake: former additional social history: Denominational, does not except whole blood transfusions Smoking Status: Former smoker alcohol intake frequency: other Substance Use Type: marijuana Exam Initial Vital Signs Initial Vital Signs: Vital Signs Pulse Rate 76 01/02/22 09:17 Pulse Oximetry 99 01/02/22 09:17 GENERAL: Alert thin 61-year-old female and in no acute distress. HEENT: Head atraumatic,EOMI, pupils reactive, face symmetric, moist mucous membranes CARDIOVASCULAR: Regular rate and rhythm without murmurs, rubs or gallops. RESPIRATORY: Breath sounds equal bilaterally, no wheezes rales or rhonchi. ABDOMEN: Soft, tender epigastric region : No CVA tenderness EXTREMITIES: Normal range of motion, no clubbing or edema. Neurovascularly intact NEUROLOGICAL: Alert and oriented x4.Normal gait and speech. SKIN: Warm, dry, no laceration, no petechiae, no rashes or lesions. Course Orders Ordered: ED Orders 01/02/22 09:36 EKG-12 Lead Stat 01/02/22 09:56 COVID19 -Nasal RAPID/Pre-Proc Stat Discontinued Medications Hydromorphone HCl (Hydromorphone 1 Mg Inj) 1 mg IV NOW ONE Stop: 01/02/22 10:50 Last Admin: 01/02/22 11:12 Dose: 1 mg Documented By: WATSON Sodium Chloride (Normal Saline 0.9%) 1,000 mls @ 1,000 mls/hr IV BOLUS ONE Stop: 01/02/22 10:40 Last Infusion: 01/02/22 10:50 Dose: 0 mls/hr Documented By: Admin: 01/02/22 09:48 Dose: 1,000 mls/hr Documented By: NABIL POTASSIUM CHLORIDE IN WATER (Potassium Cl 10 Meq/100 Ml Madiha) 10 meq in 100 mls @ 100 mls/hr IV Q1H JESE Stop: 01/02/22 14:14 Last Infusion: 01/02/22 15:34 Dose: 0 mls/hr Documented By: WATSON(2) Admin: 01/02/22 14:31 Dose: 100 mls/hr Documented By: RLS(2) Infusion: 01/02/22 14:11 Dose: 100 mls/hr Documented By: RLS(2) Admin: 01/02/22 13:11 Dose: 100 mls/hr Documented By: RLS(2) Infusion: 01/02/22 13:10 Dose: 100 mls/hr Documented By: RLS(2) Admin: 01/02/22 12:10 Dose: 100 mls/hr Documented By: Infusion: 01/02/22 12:07 Dose: 0 mls/hr Documented By: Admin: 01/02/22 10:24 Dose: 100 mls/hr Documented By: WATSON Ketorolac Tromethamine (Ketorolac 30 Mg/Ml Vial) 15 mg IV NOW ONE Stop: 01/02/22 09:43 Last Admin: 01/02/22 09:49 Dose: 15 mg Documented By: NABIL Ondansetron HCl (Ondansetron 4 Mg/2 Ml Inj) 4 mg IV NOW ONE Stop: 01/02/22 09:36 Last Admin: 01/02/22 09:49 Dose: 4 mg Documented By: NABIL Pantoprazole Sodium (Pantoprazole 40 Mg Vial) 40 mg IV NOW ONE Stop: 01/02/22 09:42 Last Admin: 01/02/22 09:49 Dose: 40 mg Documented By: NABIL Vital Signs Vital signs: Vital Signs - 8 hr 01/02/22 11:02 01/02/22 11:04 01/02/22 11:04 Pulse Rate 91 H 82 Respiratory Rate 26 H Blood Pressure 176/74 H Pulse Oximetry 96 97 01/02/22 11:30 01/02/22 11:31 01/02/22 11:31 Pulse Rate 80 80 Respiratory Rate 20 18 Blood Pressure 108/53 L Pulse Oximetry 97 96 01/02/22 12:00 01/02/22 12:00 01/02/22 12:30 Pulse Rate 81 Respiratory Rate 16 Blood Pressure 106/52 L 111/56 L Pulse Oximetry 95 01/02/22 12:30 01/02/22 13:00 01/02/22 13:00 Pulse Rate 84 75 Respiratory Rate 18 17 Blood Pressure 112/57 L Pulse Oximetry 96 96 01/02/22 13:18 01/02/22 13:18 01/02/22 13:30 Pulse Rate 86 75 Respiratory Rate 26 H 19 Blood Pressure 121/60 Pulse Oximetry 98 01/02/22 14:00 01/02/22 14:30 01/02/22 15:00 Pulse Rate 78 73 79 Respiratory Rate 27 H 29 H 39 H Blood Pressure Pulse Oximetry 01/02/22 15:30 01/02/22 15:47 01/02/22 15:47 Pulse Rate 70 74 Respiratory Rate 11 L 33 H Blood Pressure 118/57 L Pulse Oximetry 98 MDM - Nausea/Vomiting/Diarrhea Lab Data Result diagrams: 01/02/22 09:25 01/02/22 09:25 Labs: Lab Results 01/02/22 01/02/22 01/02/22 Range/Units 09:25 09:25 09:56 WBC 9.0 (4.5-11.0) X10^3/uL RBC 5.38 H (4.0-5.2) X10^6/uL Hgb 16.0 (12.0-16.0) g/dL Hct 46.1 H (36-46) % MCV 85.8 (80-100) fL MCH 29.7 (26-34) PG MCHC 34.6 (30-36) % RDW 14.0 (11.6-14.8) % Plt Count 352 (150-400) X10^3/uL Neut % (Auto) 82.4 H (50-75) % Lymph % (Auto) 10.7 L (25-40) % [place] % (Auto) 5.9 (3-14) % Eos % (Auto) 0.5 L (2-4) % Baso % (Auto) 0.5 (0-2) % Neut # (Auto) 7400 H (7622-8456) /uL Lymph # (Auto) 1000 L (2982-7418) /uL [place] # (Auto) 500 (0-900) /uL Eos # (Auto) 0 (0-450) /uL Baso # (Auto) 0 (0-100) /uL Sodium 139 (137-145) mmol/L Potassium 2.7 L* (3.4-5.1) mmol/L Chloride 97 L (98-107) mmol/L Carbon Dioxide 34 H (22-32) mmol/L BUN 13 (7-17) mg/dL Creatinine 0.69 (0.52-1.04) mg/dL Estimated GFR > 60 (>60) mL/min BUN/Creatinine Ratio 18.8 (6-22) Glucose 134 H (80-110) mg/dL Calcium 9.1 (8.4-10.2) mg/dL Total Bilirubin 1.0 (0.2-1.3) mg/dL AST 23 (14-36) IU/L ALT 17 (<35) IU/L Alkaline Phosphatase 65 (38-126) U/L Total Protein 8.2 (6.3-8.2) g/dL Albumin 4.5 (3.5-5.0) g/dL Globulin 3.7 (1.7-4.1) g/dL Albumin/Globulin Ratio 1.2 (1.0-2.8) Lipase 148 (23-300) U/L SARS-CoV-2 (PCR) Negative (Negative) Urine Dip Bedside Urine Glucose Negative Bedside Urine Bilirubin - Negative Bedside Urine Ketone - Negative Urine Specific [place] 1.015 Bedside Urine Occult Blood +/- Bedside Urine pH 6.0 Bedside Urine Protein - Negative Bedside Urine Urobilinogen - Negative Bedside Urine Nitrite - Negative Bedside Urine Leukocytes - Negative Esterase ECG Data Interpretation: Normal sinus rhythm at 71 p.r. interval 154 QRS 74 QTC 450 kit that his DJD with no T-wave inversion MDM Narrative Medical decision making narrative: Patient has had multiple episodes of vomiting over last few days noted by her hypokalemia of 2.7. She has minimal epigastric pain blood work is otherwise overall reassuring. Vomiting may be due to inability to take [place], marijuana use or other. What is patient is hypokalemic likely from vomiting it is replaced she is given IV fluids. She is in ED for number of hours but overall feeling significantly better tolerating p.o.. Discharge Plan Departure Patient Disposition: Home Clinical Impression: Cyclic vomiting syndrome, Acute hypokalemia Instructions: DI for Vomiting -- Adult Activity Restrictions/Additional Instructions: 1) You have been diagnosed with possible cyclic vomiting 2) What to do: Drink frequent but small amounts of fluids. I recommend Gatorade or a Gatorade-like product, as it has small amounts of sugar and salts that improve fluid retention. 3) Take medications as directed Zofran 4 mg every 8 hours if needed for nausea vomiting 4) Follow up with your primary care provider in 2-3 days 5) Return to ER if you should have any new or worsening symptoms such as, unable to hold down fluids despite use of anti-nausea medications and the small volume oral rehydration strategy. Prescriptions: New ondansetron 4 mg tablet,disintegrating 4 mg PO Q8H PRN (Reason: nausea and vomiting) Qty: 10 0RF No Action fluticasone propionate 50 mcg/actuation spray,suspension 2 spray NASAL DAILY PRN (Reason: Allergy Symptoms) Rx Instructions: administer into each nostril loratadine 10 mg tablet 10 mg PO PRN PRN (Reason: allergies) acetaminophen 325 mg Tablet 650 mg PO Q6HR PRN (Reason: Fever/Mild Pain (1-3)) Qty: 60 0RF hydrocodone-acetaminophen 5-325 mg Tablet 1 tab PO Q4HR PRN (Reason: Pain, Moderate (4-6)) Qty: 30 0RF aspirin 81 mg Tablet,Delayed Release (Dr/Ec) 81 mg PO BID Qty: 60 0RF metoprolol tartrate 25 mg tablet 25 mg PO BID Qty: 60 0RF potassium chloride 20 mEq tablet,ER particles/crystals 20 meq PO DAILY Qty: 7 0RF metoclopramide HCl [Reglan] 10 mg tablet 10 mg PO Q6H PRN (Reason: nausea and vomiting) Qty: 14 0RF escitalopram oxalate [Lexapro] 10 mg Tablet 10 mg PO DAILY duloxetine [Cymbalta] 20 mg Capsule,Delayed Release(Dr/Ec) 20 mg PO DAILY Referrals: Ranjana Cadena DO [Primary Care Provider] - Visit Report Forms: Patient Portal/API
[2022-01-02] MEDS: HYDROMORPHONE 1 MG INJ IV (11:12)
== END 2022-01-02 15:56 | disposition home or self-care (01) ==
PROVIDERS: Emergency Provider Emergency Medicine; PCP Family Medicine
DX: R11.15 Cyclical vomiting syndrome unrelated to migraine (principal); E87.6 Hypokalemia; R10.13 Epigastric pain; Z20.822 Contact with and (suspected) exposure to COVID-19
CPT/HCPCS: 36415; 80053; 81003; 83690; 85025; 87635; 93005; 93010; 96361; 96365; 96366; 96375; 99284; C9803; C9113; J1170; J1885; J2405

== ENCOUNTER 2023-05-28 15:54 | Emergency (ER) | payer OTHER, SELFPAY ==
[2023-05-28 16:14] VITALS: BP 161/95; PULSE 103; RESP 20; TEMP 36.2; O2SAT 97
--- NOTE | 2023-05-28 16:39 | DI.RAD.S_ITS ---
PROCEDURE: XR LUMBAR SPINE 2-3V INDICATIONS: Lower back pain TECHNIQUE: 3 views of the lumbar spine were acquired. COMPARISON: None. FINDINGS: Bones: 5 [id number] vertebrae are present. There is normal bony alignment. No vertebral body compression fractures. Mild multilevel degenerative changes with tiny anterior osteophytosis, facet arthropathy and disc height loss at L5-S1. No suspicious bony lesions. Soft tissues: Overlying bowel gas pattern is normal. No suspicious soft tissue calcifications. IMPRESSION: No acute fracture or traumatic subluxation of the lumbar spine. Dictated by: Joe Redd M.D. on 05/28/2023 at 17:10 Approved by: Joe Redd M.D. on 05/28/2023 at 17:11
[2023-05-28] MEDS: OXYCODONE/ACETAMINOPHEN 5/325 TABLET 1 TAB PO (16:46)
[2023-05-28] MEDS: CYCLOBENZAPRINE 10 MG TABLET PO (16:46)
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
[2023-05-28 17:44] VITALS: BP 128/71; PULSE 82; RESP 18; O2SAT 98
== END 2023-05-28 17:42 | disposition home or self-care (01) ==
PROVIDERS: Emergency Provider Student in an Organized Health Care Education/Training Program; PCP Family Medicine
DX: M54.41 Lumbago with sciatica, right side (principal)
CPT/HCPCS: 72100; 99283